=== PATIENT | male | born 1970 | race Hispanic/Latino ===

== ENCOUNTER 2023-06-17 12:48 | Inpatient (IN) | payer OTHER, SELFPAY ==
[2023-06-17] MEDS ORDERED: ONDANSETRON 4 MG/2 ML VIAL ONE (13:29)
[2023-06-17] MEDS ORDERED: MORPHINE 4 MG/ML SYR ONE (13:30)
[2023-06-17 13:41] LABS: Absolute Basophils 0.1 K/uL (0-0.5); Absolute Eosinophils 0.2 K/uL (0-0.5); Absolute Lymphocytes (CBC) 1.4 K/uL (0.7-4.9); Absolute Monocytes 0.6 K/uL (0.1-1.3); Absolute Neutrophil 4.6 K/uL (1.8-8.0); Basophils % 0.9 % (0-1.3); Eosinophils % 3.1 % (0-4.4); Hematocrit 24.7 % (39.6-49.0); Hemoglobin 8.1 g/dL (13.6-17.9); Lymphocytes % 20.7 % (15.3-44.8); MCH 29.4 pg (27.0-35.0); MCHC 32.6 g/dL (32.0-36.0); MCV 90.1 fL (80-100); MPV 8.5 fL (7.6-11.3); Monocytes % 8.8 % (3.3-12.3); Neutrophils % 66.5 % (41.7-73.7); Platelets 328 thou/uL (152-406); RBC Red Blood Cell Count 2.74 M/uL (4.33-5.43); Red Cell Distribution Width 13.5 % (12.1-15.2)
[2023-06-17 13:55] LABS: ALT/SGPT 14 U/L (16-61); AST/SGOT 8 U/L (15-37); Albumin 2.3 g/dL (3.4-5.0); Albumin/Globulin Ratio 0.6 (1.1-1.8); Alkaline Phosphatase 89 U/L (45-117); Anion Gap 8.7 mEq/L (5.0-15.0); BUN Blood Urea Nitrogen 34 mg/dL (7-18); Bicarbonate 23 mEq/L (21-32); Bilirubin Total 0.2 mg/dL (0.2-1.0); Globulin 3.7 g/dL (2.3-3.5); Glomerular Filtration Rate 41 ml/min (=/>90); Glucose Level 194 mg/dL (74-106); Potassium 4.7 mEq/L (3.5-5.1); Sodium Level 140 mEq/L (136-145)
[2023-06-17 13:57] LABS: Bilirubin Direct < 0.1 mg/dL (0-0.2); Bilirubin Indirect, Calculated ND mg/dL (0.2-0.8)
--- NOTE | 2023-06-17 14:39 | RAD REPORT ---
EXAM DESCRIPTION: US - Extremity Venous Uni Ltd - 06/17/2023 2:30 pm CLINICAL HISTORY: PAIN Leg swelling and edema. COMPARISON: No comparisons FINDINGS: Right lower extremity venous system was interrogated with Doppler technique. Normal flow, compressibility and augmentation was noted. There is no DVT present. IMPRESSION: No evidence of right lower extremity deep venous thrombosis.
--- NOTE | 2023-06-17 14:40 | RAD REPORT ---
EXAM DESCRIPTION: US - Scrotum Testicles - 06/17/2023 2:29 pm CLINICAL HISTORY: scrotal pain COMPARISON: No comparisons FINDINGS: The right testicle 5.1 x 3.3 x 2.1 cm. No intratesticular masses or evidence of testicular torsion. The left testicle 4.8 x 3.5 x 2.5 cm. No intratesticular masses or evidence of testicular torsion. Both epididymides are normal in size and appearance. No pathologic fluid collections. Mild scrotal wall thickening. IMPRESSION: No acute abnormality seen.
--- NOTE | 2023-06-17 15:04 | RAD REPORT ---
EXAM DESCRIPTION: CT - Abdomen Pelvis Wo Contrast - 06/17/2023 2:49 pm CLINICAL HISTORY: Abdominal pain. chills, indwelling catheter, groin pain COMPARISON: No comparisons TECHNIQUE: CT imaging of the abdomen and pelvis was performed without contrast. Solid organ, bowel a nd vascular assessment is limited due to lack of IV and oral contrast. All CT scans are performed using dose optimization technique as appropriate and may include automated exposure control or mA/KV adjustment according to patient size. FINDINGS: Small bilateral pleural effusions are noted. The liver, spleen, pancreas, adrenal glands and kidneys are within normal limits for a limited non-co ntrast examination. No bowel obstruction, free air, free fluid or abscess. The appendix is normal. There is a large amou nt of stool present throughout the colon. Fecal impaction in the rectum is possible. Sidhu catheter i s in place. Air is present in the urinary bladder with mild thickening. The osseous structures are within normal limits. IMPRESSION: Sidhu catheter in place with a within the urinary bladder. Suggest correlation with urin alysis evaluate for possible cystitis. Significant fecal retention throughout the colon with possible fecal impaction in the rectum. A limited non-contrast examination was performed as detailed.
[2023-06-17 15:40] LABS: Renal Epithelial <5 /HPF (None Seen); Specific Gravity 1.014 (1.005-1.030); Sqamous Epithelial None Seen /HPF (None Seen); Urine Bacteria None Seen /HPF (<20); Urine Bilirubin NEGATIVE (Negative); Urine Blood Trace (Negative); Urine Clarity Clear (Clear); Urine Color Colorless (Yellow); Urine Culture Reflex Order NOT NEEDED; Urine Glucose 1+ (Negative); Urine Ketones NEGATIVE (Negative); Urine Microscopic Reflex YN ORDER UMIC; Urine Mucus Slight /HPF (None Seen); Urine Nitrite NEGATIVE (Negative); Urine Protein 3+ (Negative); Urine RBC <5 /HPF (None Seen); Urine Urobilinogen Normal (Normal); Urine WBC <5 /HPF (<5)
[2023-06-17] MEDS ORDERED: FLEET ENEMA ADULT PR ONE (15:50)
--- NOTE | 2023-06-17 17:01 | EDPHYS ---
Physician Documentation [facility] Name: Abel Cabello Age: 52 yrs Sex: Male : 1970 Arrival Date: 06/17/2023 Time: 12:48 Bed 8 Private MD: ED Physician Toribio Garcia HPI: 06/16 13:50 This 52 yrs old Male presents to ER via EMS with complaints of Groin Pain. rn 13:50 The patient presents with pain. The complaints affect the pelvis and right leg. Onset: rn The symptoms/episode began/occurred yesterday. Modifying factors: The symptoms are alleviated by nothing. the symptoms are aggravated by nothing. Severity of symptoms: At their worst the symptoms were moderate, in the emergency department the symptoms are unchanged. The patient has not experienced similar symptoms in the past. Patient reports right groin pain that radiates down right leg to ankle. Denies injury. Had stroke last month and had Sidhu catheter placed 2 weeks ago, was supposed to follow-up with urology for evaluation of removal of the Sidhu catheter. States groin pain that radiates down right leg worse since yesterday. Did not have this pain earlier as this Sidhu catheter has been in place almost 2 weeks. Denies fall or trauma. No fever.. Historical: - Allergies: 12:56 No Known Allergies; aa5 - Home Meds: 13:37 Cipro 500 mg Oral tablet 2 times per day for UTI started 06/05/23 [Active]; aspirin 81 aa5 mg Oral tablet,chewable once [Active]; atorvastatin 80 mg oral tablet every day at bedtime [Active]; carvedilol 25 mg oral tablet 2 times per day [Active]; ferrous sulfate 325 mg (65 mg iron) Oral tablet once [Active]; Humulin 70/30 U-100 Insulin 100 unit/mL (70-30) Sub-Q suspension 25 units daily before breakfast and 15 units before dinner. [Active]; nifedipine 90 mg Oral tablet, extended release once [Active]; tamsulosin 0.4 mg oral capsule 2 caps daily [Active]; - PMHx: 12:56 JOSSELYN; alcohol abuse; Diabetes mellitus; Hypertensive disorder; CVA May 07, 2023; Left aa5 sided weakness from CVA; Hypoxic Respiratory Failure; Cystitis with hematuria; - Family history:: not pertinent. - Hospitalizations: : No recent hospitalization is reported. ROS: 13:50 Constitutional: Negative for fever, and weight loss, Cardiovascular: Negative for chest rn pain, palpitations, and edema, Respiratory: Negative for shortness of breath, cough, wheezing, and pleuritic chest pain, Abdomen/GI: Negative for abdominal pain, nausea, vomiting, diarrhea, and constipation, Back: Negative for injury and pain, : Positive for testicular and right groin pain MS/Extremity: Positive for right leg pain Exam: 13:50 Constitutional: This is a well developed, well nourished patient who is awake, alert, rn appears uncomfortable ENT: No oral swelling or stridor noted Cardiovascular: Regular rate and rhythm. No pulse deficits. Respiratory: No increased work of breathing, no retractions or nasal flaring. Abdomen/GI: Soft, non-tender Male : Sidhu catheter in place. Vaseline over scrotum that applied but no crepitus or skin changes. No evidence of Hawk's gangrene Skin: Warm, dry MS/ Extremity: Pulses equal, no cyanosis. No gross deformity of right lower extremity Neuro: Awake and alert, GCS 15 Vital Signs: 12:55 BP 133 / 87; Pulse 85; Resp 18 S; Temp 98.1(O); Pulse Ox 94% on R/A; Weight 104.33 kg aa5 (R); Height 5 ft. 10 in. (R); 13:30 BP 140 / 78; Pulse 84; Resp 18 S; Pulse Ox 96% on R/A; aa5 14:00 BP 137 / 81; Pulse 79; Resp 16 S; Pulse Ox 96% on R/A; aa5 14:25 Resp 6 S; Pulse Ox 50% on R/A; aa5 14:26 Resp 12 S; Pulse Ox 98% on Non-rebreather mask; aa5 14:30 BP 141 / 82; Pulse 79; Resp 19 S; Pulse Ox 98% on Non-rebreather mask; aa5 15:22 BP 151 / 86; Pulse 80; Resp 18 S; Pulse Ox 100% on 4 lpm NC; aa5 15:30 Pulse Ox 57% on 3 lpm NC; aa5 15:31 Pulse Ox 97% on 3 lpm NC; aa5 16:11 BP 147 / 90; Pulse 86; Resp 18 S; Pulse Ox 97% on 2 lpm NC; aa5 17:30 Pulse Ox 60% on 3 lpm NC; aa5 17:31 Pulse Ox 97% on 3 lpm NC; aa5 12:55 Body Mass Index 33.00 (104.33 kg, 177.8 cm) aa5 MDM: 12:56 Patient medically screened. rn 16:54 Differential diagnosis: Cystitis, DVT, radiculopathy. Data reviewed: vital signs, rn nurses notes, lab test result(s), radiologic studies, CT scan, and as a result, I will admit patient. Consideration of Admission/Observation Patient was admitted/placed on observation. Escalation of care including admission/observation considered. Counseling: I had a detailed discussion with the patient and/or guardian regarding the historical points, exam findings, and any diagnostic results supporting the discharge/admit diagnosis, lab results, radiology results, the need for further work-up and treatment in the hospital. Response to treatment: the patient's symptoms have mildly improved after treatment, and as a result, I will admit patient. ED course: Patient with fecal impaction, negative DVT study. Patient has exhibited several hypoxic and hypoventilatory episodes where he desats to 25%. Patient unaware of history of severe apnea or hypoventilatory episodes. Will hobs to hospitalist service for further evaluation and care.. 17:38 ED course: Patient had large bowel movement as a result of enema. Stable vital signs rn currently.. 06/16 13:15 Order name: Urinalysis w/ reflexes; Complete Time: 15:44 rn 06/16 13:16 Order name: CBC with Diff; Complete Time: 14:15 rn 06/16 13:16 Order name: Basic Metabolic Panel; Complete Time: 14:15 rn 06/16 13:16 Order name: LFT's; Complete Time: 14:15 rn 06/16 14:45 Order name: Glucose, Ancillary Testing; Complete Time: 15:25 EDMS 06/16 17:33 Order name: CBC with Automated Diff EDMS 06/16 17:33 Order name: CBC with Automated Diff EDMS 06/16 17:33 Order name: CBC with Automated Diff EDMS 06/16 17:33 Order name: CBC with Automated Diff EDMS 06/16 17:33 Order name: Comprehensive Metabolic Panel EDMS 06/16 17:33 Order name: Comprehensive Metabolic Panel [facility] 06/16 17:33 Order name: Comprehensive Metabolic Panel [facility] 06/16 17:33 Order name: Comprehensive Metabolic Panel [facility] 06/16 17:33 Order name: Lipid Profile [facility] 06/16 17:33 Order name: Lipid Profile [facility] 06/16 17:33 Order name: Magnesium [facility] 06/16 17:33 Order name: Magnesium [facility] 06/16 18:47 Order name: Ammonia; Complete Time: 19:01 [facility] 06/16 18:59 Order name: NT PRO-BNP [facility] 06/16 18:59 Order name: Thyroid Stimulating Hormone [facility] 06/16 19:10 Order name: Type and Screen [facility] 06/16 19:12 Order name: ABO/RH no charge [facility] 06/16 19:12 Order name: T4 Free [facility] 06/16 19:17 Order name: Transferrin Sat/Iron Binding [facility] 06/16 19:17 Order name: Ferritin [facility] 06/16 13:15 Order name: Extremity Venous Uni Ltd US; Complete Time: 15:25 rn 06/16 13:15 Order name: US Scrotum Testicles; Complete Time: 15:25 rn 06/16 14:10 Order name: Abdomen ; Complete Time: 15:25 [facility] 06/16 18:59 Order name: CT; Complete Time: 19: [facility] 06/16 19:00 Order name: US; Complete Time: 19: [facility] 06/16 13:16 Order name: IV Start; Complete Time: 13:29 rn Administered Medications: 13:30 Drug: Ondansetron IVP 4 mg IVP once; over 2 minutes Route: IVP; Site: right forearm; aa5 13:34 Follow up: Response: No adverse reaction aa5 13:34 Drug: morphine IVP or IV 4 mg IVP once over 4 mins Route: IVP; Infused Over: 4 mins; aa5 Site: right forearm; 13:40 Follow up: Response: No adverse reaction aa5 15:50 Drug: Fleet Enema RI 133 ml RI once; may repeat once Route: RI; aa5 17:40 Follow up: Response: Marked relief of symptoms aa5 Disposition Summary: 06/17/23 17:00 Hospitalization Ordered Notes: Hospitalization Status: Observation rn Provider: Ruth Elizabeth rn Condition: Stable rn Problem: new rn Symptoms: are unchanged rn Bed/Room Type: Standard rn Location: Intensive Care Unit(06/17/23 17:45) Room Assignment: 7-(06/17/23 18:59) aa5 Diagnosis - Fecal impaction rn - Hypoxemia rn - Hypoventilation rn Forms: - Medication Reconciliation Form rn - SBAR form rn - Leadership Thank You Letter rn Signatures: Dispatcher [employer] EDMS Toribio Garcia MD MD rn Calderon, Audri, RN RN aa5 Kalli Lambert Corrections: (The following items were deleted from the chart) 12:58 12:56 Allergies: Demerol; aa5 aa5 13:16 13:16 Urinalysis+U.LAB.BRZ ordered. EDMS EDMS 13:16 13:16 Extremity Venous Uni Ltd+US.RAD.BRZ ordered. EDMS EDMS 13:16 13:16 Scrotum Testicles+US.RAD.BRZ ordered. EDMS EDMS 13:42 13:37 Home Meds: insulin SQ; aa5 aa5 14:10 13:16 Abdomen Pelvis W Con+CT.RAD.BRZ ordered. EDSC EDMS 17:45 17:00 Telemetry/MedSurg (observation) rn eb 17:45 17:00 rn eb 17:47 13:50 Constitutional: This is a well developed, well nourished patient who is awake, rn alert, appears uncomfortable Cardiovascular: Regular rate and rhythm. No pulse deficits. Respiratory: No increased work of breathing, no retractions or nasal flaring. Abdomen/GI: Soft, non-tender Male : Sidhu catheter in place. Vaseline over scrotum that applied but no crepitus or skin changes. No evidence of Hawk's gangrene Skin: Warm, dry MS/ Extremity: Pulses equal, no cyanosis. No gross deformity of right lower extremity Neuro: Awake and alert, GCS 15 rn 18:59 17:45 1- eb aa5
--- NOTE | 2023-06-17 17:01 | ER ---
Nurse's Notes [facility] Name: Abel Cabello Age: 52 yrs Sex: Male : 1970 Arrival Date: 06/17/2023 Time: 12:48 Bed 8 Private MD: Diagnosis: Fecal impaction;Hypoxemia;Hypoventilation Presentation: 06/16 12:55 Chief complaint: Chief complaint: Chief complaint: Patient states: left leg pain aa5 radiating up to groin area. Released from [facility] 06/05/23 with Sidhu catheter. 12:55 Method Of Arrival: EMS: [facility] aa5 12:55 Coronavirus screen: At this time, the client does not indicate any symptoms associated aa5 with coronavirus-19. Ebola Screen: Patient denies travel to an Ebola-affected area in the 21 days before illness onset. Initial Sepsis Screen: Does the patient meet any 2 criteria? No. Patient's initial sepsis screen is negative. Does the patient have a suspected source of infection? No. Patient's initial sepsis screen is negative. Risk Assessment: Do you want to hurt yourself or someone else? Patient reports no desire to harm self or others. Onset of symptoms was May 2023. 12:55 Acuity: PHILIP 3 aa5 Historical: - Allergies: 12:56 No Known Allergies; aa5 - Home Meds: 13:37 Cipro 500 mg Oral tablet 2 times per day for UTI started 06/05/23 [Active]; aspirin 81 aa5 mg Oral tablet,chewable once [Active]; atorvastatin 80 mg oral tablet every day at bedtime [Active]; carvedilol 25 mg oral tablet 2 times per day [Active]; ferrous sulfate 325 mg (65 mg iron) Oral tablet once [Active]; Humulin 70/30 U-100 Insulin 100 unit/mL (70-30) Sub-Q suspension 25 units daily before breakfast and 15 units before dinner. [Active]; nifedipine 90 mg Oral tablet, extended release once [Active]; tamsulosin 0.4 mg oral capsule 2 caps daily [Active]; - PMHx: 12:56 JOSSELYN; alcohol abuse; Diabetes mellitus; Hypertensive disorder; CVA May 07, 2023; Left aa5 sided weakness from CVA; Hypoxic Respiratory Failure; Cystitis with hematuria; - Family history:: not pertinent. - Hospitalizations: : No recent hospitalization is reported. Screenin:00 [facility] ED Fall Risk Assessment (Adult) History of falling in the last 3 months, aa5 including since admission No falls in past 3 months (0 pts) Confusion or Disorientation No (0 pts) Intoxicated or Sedated No (0 pts) Impaired Gait Yes (1 pt) Mobility Assist Device Used Yes (1 pt) Altered Elimination Yes (1 pt) Score/Fall Risk Level 3 or more points = High Risk Oriented to surroundings, Maintained a safe environment, Educated pt \T\ family on fall prevention, incl call for assistance when getting out of bed. Abuse screen: Denies threats or abuse. Nutritional screening: No deficits noted. Tuberculosis screening: No symptoms or risk factors identified. Assessment: 12:55 General: Appears uncomfortable, Behavior is calm, cooperative. Pain: Complains of pain aa5 in right leg Pain radiates to groin Pain currently is 10 out of 10 on a pain scale. Quality of pain is described as sharp, shooting, Pain began this morning Is continuous. 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 Cardiovascular: Heart tones S1 S2 present Patient's skin is warm and dry. Edema is 2+ to noted to buck legs and feet Rhythm is regular. Respiratory: Airway is patent Respiratory effort is even, unlabored, Respiratory pattern is regular, symmetrical. GI: Abdomen is round Bowel sounds present X 4 quads. Abd is soft and non tender X 4 quads. Patient currently denies abdominal pain. : Sidhu in place to gravity drainage. EENT: No signs and/or symptoms were reported regarding the EENT system. Derm: Skin is pink, warm \T\ dry. multiple small scabbed sores noted to right mckeon. Musculoskeletal: left sided weakness noted, pt reports is deficit from CVA. 13:30 Reassessment: Patient is alert, oriented x 3, equal unlabored respirations, skin aa5 warm/dry/pink. General: Appears uncomfortable. Pain: Noted to be moaning. 13:40 Reassessment: Patient is alert, oriented x 3, equal unlabored respirations, skin aa5 warm/dry/pink. US at bedside. 14:00 Reassessment: Pt sleeping, relaxed respirations noted, skin is pink/warm/dry. Pt's aa5 at bedside. . 14:25 Reassessment: O2 sat noted to be 50% RA on monitor, checked on pt O2 sat at bedside aa5 down to 25% RA, hypoventilation noted, pt hard to arouse to verbal stimuli, placed O2 via non-rebreather, O2 sat up to 98% via non-rebreather and pt woke up to tactile stimuli, current RR is 20. Dr. Garcia at bedside. Pt awake and alert now. . 14:58 Reassessment: Patient is alert, oriented x 3, equal unlabored respirations, skin aa5 warm/dry/pink. Pt back from CT scan. . 15:31 Reassessment: O2 sat decreased, see VS for more information, MD was notified. Pt's O2 aa5 sat increased upon waking up. . 15:50 Reassessment: Patient is alert, oriented x 3, equal unlabored respirations, skin aa5 warm/dry/pink. Patient states feeling better. General: Appears comfortable. Pain: Pain currently is 3 out of 10 on a pain scale. 17:30 Reassessment: Os sat decreases when pt is asleep, MD was notified of another episode of aa5 hypoxia to 60% via 3 L NC, increased to O2 sat 97% via 3 L NC upon waking up. . 17:31 Reassessment: Patient is alert, oriented x 3, equal unlabored respirations, skin aa5 warm/dry/pink. 17:40 Reassessment: Moderate amount of formed stool noted, pt cleaned and new brief applied. aa5 MDwas notified. . 17:56 Reassessment: Patient is alert, oriented x 3, equal unlabored respirations, skin aa5 warm/dry/pink. 17:57 Reassessment: Attempted to call report to ICU nurse, DUSTY Rayo states he will call me aa5 back. . 18:40 Reassessment: Pt currently at radiology. . aa5 18:40 Reassessment: Report given to Girma ICU nurse, ICU room changed to ICU room 7 per jamie Rayo registration staff notified. . Vital Signs: 12:55 BP 133 / 87; Pulse 85; Resp 18 S; Temp 98.1(O); Pulse Ox 94% on R/A; Weight 104.33 kg aa5 (R); Height 5 ft. 10 in. (R); 13:30 BP 140 / 78; Pulse 84; Resp 18 S; Pulse Ox 96% on R/A; aa5 14:00 BP 137 / 81; Pulse 79; Resp 16 S; Pulse Ox 96% on R/A; aa5 14:25 Resp 6 S; Pulse Ox 50% on R/A; aa5 14:26 Resp 12 S; Pulse Ox 98% on Non-rebreather mask; aa5 14:30 BP 141 / 82; Pulse 79; Resp 19 S; Pulse Ox 98% on Non-rebreather mask; aa5 15:22 BP 151 / 86; Pulse 80; Resp 18 S; Pulse Ox 100% on 4 lpm NC; aa5 15:30 Pulse Ox 57% on 3 lpm NC; aa5 15:31 Pulse Ox 97% on 3 lpm NC; aa5 16:11 BP 147 / 90; Pulse 86; Resp 18 S; Pulse Ox 97% on 2 lpm NC; aa5 17:30 Pulse Ox 60% on 3 lpm NC; aa5 17:31 Pulse Ox 97% on 3 lpm NC; aa5 12:55 Body Mass Index 33.00 (104.33 kg, 177.8 cm) aa5 ED Course: 12:55 Patient arrived in ED. aa5 12:55 Arm band placed on Patient placed in an exam room, on a stretcher. aa5 12:55 Patient has correct armband on for positive identification. Placed in gown. Bed in low aa5 position. Call light in reach. Side rails up X2. Pulse ox on. NIBP on. 12:56 Toribio Garcia MD is Attending Physician. rn 13:00 Janet Lind, DUSTY is Primary Nurse. aa5 13:04 Triage completed. aa5 13:21 Initial lab(s) drawn, by me, sent to lab. Inserted saline lock: 20 gauge in right aa5 forearm, using aseptic technique. Blood collected. 14:31 US Scrotum Testicles In Process Unspecified. EDMS 14:32 Extremity Venous Uni Ltd US In Process Unspecified. EDMS 14:51 Abdomen In Process Unspecified. EDMS 16:59 Ruth Elizabeth MD is Hospitalizing Provider. rn Administered Medications: 13:30 Drug: Ondansetron IVP 4 mg IVP once; over 2 minutes Route: IVP; Site: right forearm; aa5 13:34 Follow up: Response: No adverse reaction aa5 13:34 Drug: morphine IVP or IV 4 mg IVP once over 4 mins Route: IVP; Infused Over: 4 mins; aa5 Site: right forearm; 13:40 Follow up: Response: No adverse reaction aa5 15:50 Drug: Fleet Enema CT [address] once; may repeat once Route: CT; aa5 17:40 Follow up: Response: Marked relief of symptoms aa5 Medication: 18:05 VIS not applicable for this client. aa5 Output: 14:30 Urine: 200ml (Sidhu); Total: 200ml. aa5 17:40 Urine: 300ml (Sidhu); Total: 500ml. aa5 Outcome: 17:00 Decision to Hospitalize by Provider. rn 19:26 Patient left the ED. jb4 Signatures: Dispatcher [employer] EDMS Toribio Garcia MD MD rn Calderon, Audri, RN RN aa5 Bryson, James, RN RN jb4 Corrections: (The following items were deleted from the chart) 12:58 12:56 Allergies: Demerol; aa5 aa5 13:01 12:55 Chief complaint: aa5 aa5 13:04 12:55 Chief complaint: Chief complaint: aa5 aa5 13:06 12:55 Chief complaint: Patient states: left leg pain radiating up to groin area. Chief aa5 complaint: Patient states: left leg pain radiating up to groin area. Chief complaint: Patient states: left leg pain radiating up to groin area. aa5 13:42 13:37 Home Meds: insulin SQ; aa5 aa5 14:43 14:25 Pulse Ox 50% RA; aa5 aa5 14:43 14:26 Pulse Ox 98% Non-rebreather mask; aa5 aa5 18:05 12:55 Cardiovascular: Patient's skin is warm and dry. aa5 aa5 18:16 12:55 Derm: Skin is pink, warm \T\ dry. aa5 aa5
[2023-06-17] MEDS: LACTULOSE 20 GM/30 ML UCUP PO ONE (17:40)
--- NOTE | 2023-06-17 18:03 | P.HP ---
Certification for Inpatient Patient admitted to: Inpatient With expected LOS: >2 Midnights Patient will require the following post-hospital care: Correction Practitioner: I am a practitioner with admitting privileges, knowledge of patient current condition, hospital course, and medical plan of care. Services: Services provided to patient in accordance with Admission requirements found in Title 42 Section 412.3 of the Code of Federal Regulations Patient History Date of Service: 06/17/23 Primary Care Provider: here from [place] Reason for admission: CHF, recent CVA (left weakness), HTN, Groin pain, UTI History of Present Illness: Mr. Cabello is a 52-year-old male with a past medical history of alcohol abuse, diabetes, hypertension with CKD, hyperlipidemia, hypoxic respiratory failure, and cystitis, who sustained a right CVA on May 07, 2023. His states that they came to [place] from [place] to visit family in [place]. During their stay Mr. Cabello had a CVA and was evaluated and treated at [facility]. Although poor historian, the states that "they said he was going to have another stroke but they gave him some medicine to stop it." She cannot say if she has heard TNK or clot Buster or any other kind of medication. She just knows they gave him something to stop the stroke. - Past Medical/Surgical History Has patient received pneumonia vaccine in the past: No Diabetic: Yes -: HTN -: DM -: CVA (May 06, 2022) -: ETOH abuse -: Left eye injury -: JOSSELYN -: Hypoxic respiratory failure -: cystitis with indwelling white -: left toe amputation -: left eye injury Psychosocial/ Personal History: Lives in [place] with his . They were here visiting family in [place] last month when Mr. Cabello had a CVA. He went to [facility]. His states, "now we are stuck here" - Social History Smoking Status: Unknown if ever smoked Alcohol use: Yes CD- Drugs: No Caffeine use: Yes Place of Residence: Home (with in [place]) Review of Systems 10-point ROS is otherwise unremarkable General: Weakness, Malaise, As per HPI Respiratory: As per HPI Cardiovascular: As per HPI Genitourinary: Other (White in place, Pt c/o pain in right testicle), As per HPI Musculoskeletal: Pedal edema Neurological: As per HPI Physical Examination - Physical Exam General: Mild distress, Moderate distress, Obese, Other (growling with right testicular pain, states back of tongue feels swollen) HEENT: Atraumatic, Normocephalic Neck: Supple Respiratory: Diminished, Other (hypoventilation) Cardiovascular: Regular rate/rhythm, Edema Capillary refill: >2 Seconds Gastrointestinal: Hypoactive, No tenderness, Other (tender only to right testicular area) Musculoskeletal: Other (left great toe amputation) Integumentary: Other (right lower leg with areas of scabbing, left sided weakness) Neurological: Other (some effort against gravity to left lower extremity, left upper arm held in flexed position), Abnormal speech, Abnormal strength, Abnormal sensation Lymphatics: No axilla or inguinal lymphadenopathy Urinary: White catheter External genitalia: Tenderness, Other (US of testicles in ED normal, pt states post BM post enema the pain is severe) Rectal: Other (large soft BM post enema per ED nurse) - Studies Laboratory Data (last 24 hrs) 06/17/23 06/17/23 13:21 13:21 WBC 7.00 Hgb 8.1 L Hct 24.7 L Plt Count 328 Sodium 140 Potassium 4.7 BUN 34 H Creatinine 1.93 H Glucose 194 H Total Bilirubin 0.2 AST 8 L ALT 14 L Alkaline Phosphatase 89 Assessment and Plan - Plan Recurrent CVA with respiratory center involvement CT head while in ED. MRI of the brain (Monday) carotid Doppler ECHO (Monday) ASA EC 162mg po daily Atorvastatin 80mg po q HS Neurology consultation - Dr. Dai Physical therapy/Occupational Therapy/speech therapy evaluation Neurochecks every 2 hours, NIH stroke scale every shift HTN with CKD Carvedilol 25mg po BID monitor and trend vs trend and replete electrolytes avoid NSAIDS, nephrotoxic substances HLD Atorvastatin 80mg po q hs CHF with anemia 1 unit PRBC with lasix 10mg IV post unit, H/H timed post blood transfusion per protocol Lasix 20mg IV daily to begin in AM IDDM FSBS q 6h with SSI coverage Cystitis with indwelling white Continue renal dosed Cipro Tamsulosin 0.8mg po daily Maintain White Testicular pain (right) (US negative for torsion, epididymitis, or other abnormality) Consult Dr. Lester Pain control ETOH abuse Ammonia Librium 25mg po q8h prn (careful as pt is already hypoventilating) Constipation pt given fleets in ED and had large formed BM post CT findings Lactulose DVT/GI prophylaxis protonix scds - Advance Directives Does patient have a Living Will: No Does patient have a Durable POA for Healthcare: No Physician Review Additional Text: Report and discussion with Dr. Viera at shift change. Pt remains in ED, has room assignment to ICU1
[2023-06-17] MEDS: ASPIRIN 81 MG CHEWABLE TABLET PO ONE (18:15)
[2023-06-17] MEDS ORDERED: SODIUM CHLORIDE 0.9% 10ML INJ IV PRN (18:57)
[2023-06-17 18:59] LABS: Thyroid Stimulating Hormone 5.18 uIU/mL (0.358-3.740)
--- NOTE | 2023-06-17 18:59 | RAD REPORT ---
EXAM DESCRIPTION: CT - Head Brain Wo Cont - 06/17/2023 6:52 pm CLINICAL HISTORY: hypoventilation/apneic spells Headache, drowsiness COMPARISON: No comparisons TECHNIQUE: All CT scans are performed using dose optimization technique as appropriate and may inclu de automated exposure control or mA/KV adjustment according to patient size. FINDINGS: No intracranial hemorrhage, hydrocephalus or extra-axial fluid collection.Mild generalized brain atrophy is present with mild periventricular and deep white matter chronic microvascular ische rangel changes.No areas of brain edema or evidence of midline shift. The paranasal sinuses and mastoids are clear. The calvarium is intact. IMPRESSION: No acute intracranial abnormality.
--- NOTE | 2023-06-17 18:59 | RAD REPORT ---
EXAM DESCRIPTION: - - 06/17/2023 6:50 pm CLINICAL HISTORY: apneic spells Headache, drowsiness COMPARISON: No comparisons TECHNIQUE: Real-time sonographic evaluation of both carotid systems was performed. Doppler interroga tion was performed with waveform tracing bilaterally. FINDINGS: Normal high resistance waveforms are noted in both external carotid arteries. The common c arotid arteries and internal carotid arteries show normal low resistance waveforms. Mild soft plaque proximal right internal carotid artery. Minimal hard plaque left carotid bulb. Peak systolic and end diastolic velocity values and the ICA/CCA ratios are in the non-hemodynamically sign ificant range. Antegrade flow seen in both vertebral arteries. IMPRESSION: Mild bilateral carotid bulb plaquing. No evidence of a hemodynamically significant stenosis.
[2023-06-17] MEDS ORDERED: FUROSEMIDE 20 MG/ 2ML VIAL IV SCH (19:00)
[2023-06-17 19:17] LABS: Ferritin 86.6 ng/mL (26-388)
[2023-06-17] MEDS: INSULIN REGULAR (HUMAN) 100 UNIT/ML SQ SCH (21:00)
[2023-06-17] MEDS: NA CHLORIDE 0.9% 250 ML ONE (21:39)
--- NOTE | 2023-06-17 22:31 | P.PN ---
Date of Service: 06/17/23 Patient reevaluated, patient with history of recent CVA manage at [facility], with left hemiparesis presented today because of complaint of pain on the right side. States pain is more from the right mid wrist to the right lower leg states symptoms started after he had Sidhu placed for CVA. Pain is nonspecific. Also admit to constipation. Presented to the hospital for pain and was given morphine and then developed hypoventilation episodes with desaturation with the morphine. Morphine has been off now he is alert and awake and no repeated episode of desaturation noted. Received receiving PRBC 1 unit. Clinical exam is still mildly fluid overloaded with crackles on bases as well as 1+ pitting edema, will give Lasix now as well as mild I 40 mg after the PRBC. Give Dulcolax as well as MiraLAX for constipation Patient might benefit from Neurontin or Lyrica for presumed thalamic right-sided pain Can we DC from ICU status and moved to regular floor after the PRBC Can discharge home in a.m. and to continue follow-up with neurology at [facility]. Patient and family at bedside discussed
[2023-06-17] MEDS: BISACODYL E.C. 5 MG TAB PO ONE (22:54)
[2023-06-17] MEDS: FUROSEMIDE 40 MG/4 ML VIAL IV ONE (22:54)
[2023-06-17] MEDS: PANTOPRAZOLE 40 MG INJ IVP SCH (22:55)
[2023-06-17] MEDS: TAMSULOSIN 0.4 MG SR CAP PO SCH (22:55)
[2023-06-17] MEDS: ATORVASTATIN 80 MG TAB PO SCH (22:55)
[2023-06-17] MEDS: Ciprofloxacin 200mg IV 200 MG/100 ML IV.SOLN. IV SCH (23:47)
[2023-06-18] MEDS: HEPARIN 5000 UNIT/ML 1 ML VIAL SQ SCH (01:59)
[2023-06-18 04:31] LABS: Absolute Basophils 0.1 K/uL (0-0.5); Absolute Eosinophils 0.2 K/uL (0-0.5); Absolute Lymphocytes (CBC) 1.3 K/uL (0.7-4.9); Absolute Monocytes 0.6 K/uL (0.1-1.3); Absolute Neutrophil 4.3 K/uL (1.8-8.0); Basophils % 1.3 % (0-1.3); Eosinophils % 3.6 % (0-4.4); Hematocrit 26.1 % (39.6-49.0); Hemoglobin 8.9 g/dL (13.6-17.9); Lymphocytes % 20.3 % (15.3-44.8); MCH 30.8 pg (27.0-35.0); MCHC 34.2 g/dL (32.0-36.0); MCV 90.2 fL (80-100); MPV 7.8 fL (7.6-11.3); Monocytes % 9.3 % (3.3-12.3); Neutrophils % 65.5 % (41.7-73.7); Platelets 310 thou/uL (152-406); RBC Red Blood Cell Count 2.89 M/uL (4.33-5.43); Red Cell Distribution Width 13.5 % (12.1-15.2)
[2023-06-18 04:50] LABS: Albumin 2.2 g/dL (3.4-5.0); Albumin/Globulin Ratio 0.6 (1.1-1.8); Anion Gap 6.6 mEq/L (5.0-15.0); Bilirubin Total 0.2 mg/dL (0.2-1.0); Globulin 3.9 g/dL (2.3-3.5); Potassium 4.6 mEq/L (3.5-5.1); Protein, Total 6.1 g/dL (6.4-8.2)
[2023-06-18] MEDS: GABAPENTIN 100 MG CAP PO SCH (08:46)
[2023-06-18] MEDS: FOLIC ACID 1 MG in NA CHLORIDE 0.9% 50 ML IV SCH (08:46)
[2023-06-18] MEDS: FUROSEMIDE 20 MG/ 2ML VIAL IV SCH (08:46)
--- NOTE | 2023-06-18 10:37 | P.PN ---
Subjective Date of Service: 06/18/23 Primary Care Provider: here from [place] Chief Complaint: CHF, recent CVA (left weakness), HTN, Groin pain, UTI Pt is resting comfortably in bed. He complains of right sided pain and pt also has left sided residual weakness fro recent stroke that was treated at [facility]. His reports that the right sided pain started after he got an unknown medicine (likely tPA) to prevent stroke. He was admitted in the ICU due to hypoxia s/p getting morphine in the ER. Hypoxia has resolved. No other complaints. Review of Systems General: Unremarkable Eyes: Unremarkable ENT: Unremarkable Respiratory: SOB with Excertion Cardiovascular: Unremarkable Gastrointestinal: Unremarkable Genitourinary: Unremarkable Musculoskeletal: Unremarkable Integumentary: Unremarkable Neurological: Weakness Lymphatics: Unremarkable Physical Examination - Vital Signs Temperature: 98.3 F Blood Pressure: 163/76 Pulse: 89 Respirations: 16 Pulse Ox (%): 99 - Physical Exam General: Alert, In no apparent distress, Oriented x3 HEENT: Atraumatic, Normocephalic, PERRLA Neck: Supple, 2+ carotid pulse no bruit Respiratory: Clear to auscultation bilaterally, Normal air movement Cardiovascular: No edema, Normal pulses, Regular rate/rhythm, Normal S1 S2 Capillary refill: <2 Seconds Gastrointestinal: Normal bowel sounds, Soft and benign, Non-distended Musculoskeletal: No clubbing, No swelling Integumentary: No rashes, No breakdown Neurological: Other (Pt has right sided pain and left sided weakness), Abnormal strength Lymphatics: No axilla or inguinal lymphadenopathy - Studies Laboratory Data (last 24 hrs) 06/17/23 06/17/23 13:21 13:21 WBC 7.00 Hgb 8.1 L Hct 24.7 L Plt Count 328 Sodium 140 Potassium 4.7 BUN 34 H Creatinine 1.93 H Glucose 194 H Total Bilirubin 0.2 AST 8 L ALT 14 L Alkaline Phosphatase 89 Assessment And Plan - Plan Recent CVA: Pt was recently treated for left sided weakness at [facility]. He complains of right sided ain. CT head is unremarkable. Willf /u MRI brain. F/u Echo. Continue aspirin and atorvastatin. Consulted Neurology. Continue PT/OT. Right sided pain: will give gabapentin Acute resp failure with hypoxia: resolved. This happened after pt received morphine in the ER. Will avoid morphine. Continue 2L BNC and prn duoneb. HTN: continue coreg Hx of CKD: Will avoid nephrotoxins andm onitor renal function. cr is 1.9 HLD: Atorvastatin 80mg po q hs Anemia: Hgb is 8.9 s/p 1 unit o blood. Pt also received lasix in order to avoid volume overload. Hx of CHF: Continue lasix 20mg IV daily, strict I/O and daily weight IDDM: Continue accuchek, SSI and ADA diet. Cystitis with indwelling white: Will continue cipro and flomax. Leave white in place. Testicular pain (right) (US negative for torsion, epididymitis, or other abnormality): Will continue prn painmed. Consulted Dr. Lester ETOH abuse: Will continue CIWA protocol. Ammonia level is 34. Constipation: Pt had large BM s/p fleet enema. Will continue miralax. Lactulose GI Ppx: protonix DVT ppx: SCD Code: full
--- NOTE | 2023-06-18 12:08 | P.CNS ---
Primary Care Provider: here from [place] Chief Complaint: CHF, recent CVA (left weakness), HTN, Groin pain, UTI History of Present Illness: Patient with PMH of recent CVA presented with lower extremity weakness, pain, found to have bilateral lower extremities swelling and SOB. denies any chest pain, no palpitations, no syncope. Allergies No Known Allergies Allergy (Unverified 06/17/23 19:52) Home Medications: Aspirin Chewable [Aspirin Chewable*] 81 mg PO DAILY 06/18/23 Atorvastatin Calcium [Lipitor] 80 mg PO BEDTIME 06/18/23 Carvedilol [Coreg] 25 mg PO DAILY 06/18/23 Ciprofloxacin HCl [Cipro 500 MG Tablet] 500 mg PO DAILY 06/18/23 Ferrous Sulfate 325 mg PO DAILY 06/18/23 Hum Insulin NPH/Reg Insulin Hm [Humulin 70-30 Vial] 15 unit SQ DAILY AT SUPPER 06/18/23 Hum Insulin NPH/Reg Insulin Hm [Humulin 70-30 Vial] 25 units SQ BREAKFAST 06/17 NIFEdipine [Nifedipine ER] 90 mg PO DAILY 06/18/23 Tamsulosin [Flomax*] 0.8 mg PO DAILY WITH BREAKFAST 06/18/23 - Past Medical/Surgical History Diabetic: Yes -: HTN -: DM -: CVA (May 06, 2022) -: ETOH abuse -: Left eye injury -: JOSSELYN -: Hypoxic respiratory failure -: cystitis with indwelling white -: left toe amputation -: left eye injury Psychosocial/ Personal History: Lives in [place] with his . They were here visiting family in [place] last month when Mr. Cabello had a CVA. He went to [facility]. His states, "now we are stuck here" - Social History Alcohol use: Yes CD- Drugs: No Caffeine use: No Place of Residence: Home Review of Systems 10-point ROS is otherwise unremarkable Physical Examination Temp Pulse Resp BP Pulse Ox 98.3 F 89 16 163/76 H 99 06/18/23 10:54 06/18/23 10:54 06/18/23 10:54 06/18/23 10:54 06/18/23 10:54 General: Alert HEENT: Atraumatic Neck: Supple Respiratory: Clear to auscultation bilaterally Cardiovascular: Normal S1 S2, Edema Gastrointestinal: Normal bowel sounds Laboratory Data (last 24 hrs) 06/17/23 06/17/23 13:21 13:21 WBC 7.00 Hgb 8.1 L Hct 24.7 L Plt Count 328 Sodium 140 Potassium 4.7 BUN 34 H Creatinine 1.93 H Glucose 194 H Total Bilirubin 0.2 AST 8 L ALT 14 L Alkaline Phosphatase 89 - Problems (1) Bilateral lower extremity edema Current Visit: Yes Status: Acute Plan: increase lasix to 40 mg IV BID monitor input and output correct electrolytes echo (2) HTN (hypertension) Current Visit: Yes Status: Acute Plan: start coreg 25 mg po BID continue to monitor.
[2023-06-18] MEDS: carvediloL 25 MG TAB PO SCH (12:41)
[2023-06-18] MEDS: LABETALOL 20 MG/4ML SYRINGE IV PRN (15:26)
[2023-06-18] MEDS: FUROSEMIDE 40 MG/4 ML VIAL IV SCH (16:45)
[2023-06-18] MEDS: HYDRALAZINE HCL 20 MG/ML VIAL IV ONE (18:25)
[2023-06-19] MEDS: LABETALOL HCL 100 MG TAB PO ONE (00:30)
[2023-06-19] MEDS: HYDRALAZINE HCL 25 MG TABLET PO SCH (00:32)
[2023-06-19] MEDS: HYDRALAZINE HCL 20 MG/ML VIAL IV ONE (00:32)
[2023-06-19] MEDS: LABETALOL HCL 100 MG TAB PO SCH (02:11)
[2023-06-19 06:32] LABS: Absolute Basophils 0.1 K/uL (0-0.5); Absolute Eosinophils 0.2 K/uL (0-0.5); Absolute Lymphocytes (CBC) 1.7 K/uL (0.7-4.9); Absolute Monocytes 0.7 K/uL (0.1-1.3); Absolute Neutrophil 4.3 K/uL (1.8-8.0); Basophils % 0.8 % (0-1.3); Eosinophils % 2.9 % (0-4.4); Hematocrit 27.5 % (39.6-49.0); Lymphocytes % 24.5 % (15.3-44.8); MCH 29.6 pg (27.0-35.0); MCHC 32.8 g/dL (32.0-36.0); MCV 90.2 fL (80-100); MPV 8.3 fL (7.6-11.3); Monocytes % 9.5 % (3.3-12.3); Neutrophils % 62.3 % (41.7-73.7); Platelets 320 thou/uL (152-406); RBC Red Blood Cell Count 3.05 M/uL (4.33-5.43); Red Cell Distribution Width 13.5 % (12.1-15.2)
[2023-06-19 06:43] LABS: Albumin 2.1 g/dL (3.4-5.0); Albumin/Globulin Ratio 0.6 (1.1-1.8); Anion Gap 7.3 mEq/L (5.0-15.0); Bilirubin Total 0.4 mg/dL (0.2-1.0); Globulin 3.7 g/dL (2.3-3.5); Potassium 4.3 mEq/L (3.5-5.1); Protein, Total 5.8 g/dL (6.4-8.2)
[2023-06-19] MEDS ORDERED: LABETALOL HCL 100 MG TAB PO SCH (09:00)
[2023-06-19] MEDS: SOD FERRIC GLUC COMPLX/SUCROSE 125 MG in NA CHLORIDE 0.9% 100 ML IV SCH (10:21)
--- NOTE | 2023-06-19 11:39 | RAD REPORT ---
EXAM DESCRIPTION: RAD - Barium Swallow Modified - 06/19/2023 11:29 am CLINICAL HISTORY: CVA WITH HYPOVENTILATION COMPARISON: Abdomen Pelvis Wo Contrast dated 06/17/2023 TECHNIQUE: The patient was given liquid, semi-solid and solid forms of barium. Lateral view fluorosc opic imaging was performed in conjunction with speech pathology service. FINDINGS: Pharyngeal residue: Vallecular, pyriform-mild clears with 2nd swallow Other : premature spillage of bolus to pharynx before swallow due to delay in onset of swallow Total fluoroscopy time: 2 minutes and 33 seconds
--- NOTE | 2023-06-19 11:44 | RAD REPORT ---
EXAM DESCRIPTION: CT - Spine Lumbar Wo Con - 06/19/2023 11:28 am CLINICAL HISTORY: Radiculopathy. sacral ulcer with LBP/abscess COMPARISON: No comparisons TECHNIQUE: Axial noncontrast CT imaging of the lumbar spine was performed with coronal and sagittal re-formatted images. All CT scans are performed using dose optimization technique as appropriate and may include automated exposure control or mA/KV adjustment according to patient size. FINDINGS: No acute lumbar spine fracture seen. No aggressive marrow pattern or malalignment. Paraspinal tissues are normal in thickness. No paraspinal abscess or hematoma seen. Posterior disc bulges are suspected lower lumbar levels although assessment is limited on CT. Air is present in the urinary bladder with thickened wall with Sidhu catheter in place. Moderate stoo l is retained in the rectum with mild presacral soft tissue thickening. IMPRESSION: No acute lumbar spine abnormality is seen. Lower lumbar level disc bulging is likely pre sent. This is not fully evaluated on CT imaging. Consider MRI follow-up for assessment of disc disease if clinically desired.
[2023-06-19] MEDS: HYDROCODONE/APAP 10/325 TAB PO PRN (14:36)
[2023-06-19] MEDS: dexAMETHasone 4 MG/ML VIAL IV ONE (14:36)
[2023-06-20 05:21] LABS: Absolute Lymphocytes (CBC) 1.1 K/uL (0.7-4.9); Absolute Monocytes 0.6 K/uL (0.1-1.3); Absolute Neutrophil 4.2 K/uL (1.8-8.0); Basophils % 0.8 % (0-1.3); Eosinophils % 0.1 % (0-4.4); Hematocrit 27.3 % (39.6-49.0); Hemoglobin 9.4 g/dL (13.6-17.9); Lymphocytes % 18.7 % (15.3-44.8); MCH 30.5 pg (27.0-35.0); MCHC 34.5 g/dL (32.0-36.0); MCV 88.5 fL (80-100); MPV 8.2 fL (7.6-11.3); Monocytes % 9.8 % (3.3-12.3); Neutrophils % 70.6 % (41.7-73.7); Platelets 307 thou/uL (152-406); RBC Red Blood Cell Count 3.08 M/uL (4.33-5.43); Red Cell Distribution Width 13.2 % (12.1-15.2)
[2023-06-20 05:29] LABS: Albumin 2.3 g/dL (3.4-5.0); Albumin/Globulin Ratio 0.6 (1.1-1.8); Anion Gap 6.4 mEq/L (5.0-15.0); Bilirubin Total 0.3 mg/dL (0.2-1.0); Phosphorus 4.2 mg/dL (2.5-4.9); Potassium 4.4 mEq/L (3.5-5.1); Protein, Total 6.3 g/dL (6.4-8.2)
[2023-06-20 07:01] VITALS: BMI 29.6
--- NOTE | 2023-06-20 07:29 | ECHO ---
HEIGHT: 5 ft 10 in WEIGHT: 206 lb 11.2 oz DATE OF STUDY: 06/19/[address]: Ruth Elizabeth MD 2-DIMENSIONAL: YES M.MODE: YES DOPPLER: YES COLOR FLOW: YES TDS: PORTABLE: YES DEFINITY: BUBBLE STUDY: DIAGNOSIS: CHECK EJECTION FRACTION CARDIAC HISTORY: CATHERIZATION: NO SURGERY: NO PROSTHETIC VALVE: NO PACEMAKER: YES MEASUREMENTS (cm) DIASTOLIC (NORMALS) SYSTOLIC (NORMALS) IVSd 1.2 (0.6-1.2) LA Diam 3.5 (1.9-4.0) LVEF 62% LVIDd 5.5 (3.5-5.7) LVIDs 3.7 (2.0-3.5) %FS 34% LVPWd 1.2 (0.6-1.2) Ao Diam 3.5 (2.0-3.7) 2 DIMENSIONAL ASSESSMENT: RIGHT ATRIUM: NORMAL LEFT ATRIUM: NORMAL RIGHT VENTRICLE: NORMAL LEFT VENTRICLE: MILD LEFT VENTRICULAR HYPERTROPHY TRICUSPID VALVE: TRACE TRICUSPID REGURGITATION MITRAL VALVE: NORMAL PULMONIC VALVE: NORMAL AORTIC VALVE: NORMAL PERICARDIAL EFFUSION: NONE AORTIC ROOT: NORMAL LEFT VENTRICULAR WALL MOTION: NORMAL DOPPLER/COLOR FLOW: NORMAL COMMENTS: 1. NORMAL LEFT VENTRICULAR SYSTOLIC FUNCTION, EJECTION FRACTION 60-65%, NORMAL WALL MOTION 2. NORMAL DIASTOLIC FUNCTION 3. ELEVATED RIGHT ATRIAL PRESSURE GREATER THAN 20 mmHg TECHNOLOGIST: JEROME CLARKE
[2023-06-20] MEDS: FOLIC ACID 1 MG TABLET PO SCH (08:36)
--- NOTE | 2023-06-20 11:58 | P.PN ---
Subjective Date of Service: 06/20/23 Primary Care Provider: here from [place] Chief Complaint: CHF, recent CVA (left weakness), HTN, Groin pain, UTI Subjective: No new changes Review of Systems 10-point ROS is otherwise unremarkable Physical Examination - Vital Signs Temperature: 98.6 F Blood Pressure: 181/85 Pulse: 86 Respirations: 20 Pulse Ox (%): 98 - Physical Exam General: Alert HEENT: Atraumatic Neck: Supple Respiratory: Clear to auscultation bilaterally Cardiovascular: Normal S1 S2, Edema Gastrointestinal: Normal bowel sounds Assessment And Plan - Current Problems (Diagnosis) (1) Bilateral lower extremity edema Current Visit: Yes Status: Acute Plan: Continue lasix 40 mg IV BID monitor input and output correct electrolytes echo (2) HTN (hypertension) Current Visit: Yes Status: Acute Plan: continue coreg 25 mg po BID continue to monitor. (3) HLD (hyperlipidemia) Current Visit: Yes Status: Acute Plan: Continue Lipitor 80 mg daily
--- NOTE | 2023-06-20 12:09 | RAD REPORT ---
EXAM DESCRIPTION: MRI - Brain Wo Cont - 06/20/2023 11:45 am CLINICAL HISTORY: CVA/left-sided weakness COMPARISON: June 17, [address] TECHNIQUE: Axial, sagittal, and coronal magnetic resonance images of the brain were obtained. FINDINGS: 12 millimeter abnormal signal right basal ganglia has the appearance of a subacute infarct ion. Two smaller areas of abnormal signal have the appearance of acute infarcts within the right periventr icular white matter and right deep white matter Gradient echo sequences demonstrate an area of low signal within the left thalamus which likely is th e sequela of an old bleed. The ventricles are normal caliber. An extra-axial fluid collection is not noted. Fluid within the sinuses/mastoids is not seen IMPRESSION: 12 millimeter subacute infarction right basal ganglia. Two small areas of abnormal signal right periventricular white matter and right deep matter compatibl e with small acute infarct
[2023-06-20] MEDS: POLYETHYL GLY 3350 17 GM/DOSE PO PRN (21:24)
[2023-06-21 04:43] LABS: Albumin 2.3 g/dL (3.4-5.0); Anion Gap 5.8 mEq/L (5.0-15.0); Magnesium 1.7 mg/dL (1.6-2.4); Phosphorus 4.2 mg/dL (2.5-4.9); Potassium 3.8 mEq/L (3.5-5.1)
[2023-06-21] MEDS: MAGNESIUM SULFATE 1 gm IVPB 1 GM/100 ML BAG IV ONE (06:42)
[2023-06-21] MEDS: POTASSIUM CL SA 10 MEQ TAB PO ONE (08:11)
--- NOTE | 2023-06-21 08:31 | P.PN ---
Subjective Date of Service: 06/22/23 Primary Care Provider: here from [place] Chief Complaint: CHF, recent CVA (left weakness), HTN, Groin pain, UTI Pt is resting comfortably in bed. He complains of right sided pain and pt also has left sided residual weakness fro recent stroke that was treated at [facility]. His reports that the right sided pain started after he got an unknown medicine (likely tPA) to prevent stroke. He was admitted in the ICU due to hypoxia s/p getting morphine in the ER. Hypoxia has resolved. No other complaints. Evaluated by PT OT and speech, Cardiology following - Physical Exam General: Alert, In no apparent distress, Oriented x3 HEENT: Atraumatic, Normocephalic, PERRLA Neck: Supple, 2+ carotid pulse no bruit Respiratory: Clear to auscultation bilaterally, Normal air movement Cardiovascular: No edema, Normal pulses, Regular rate/rhythm, Normal S1 S2 Capillary refill: <2 Seconds Gastrointestinal: Normal bowel sounds, Soft and benign, Non-distended Musculoskeletal: No clubbing, No swelling Integumentary: No rashes, No breakdown Neurological: Other (Pt has right sided pain and left sided weakness), Abnormal strength Lymphatics: No axilla or inguinal lymphadenopathy Review of Systems Per HPI Physical Examination - Vital Signs Temperature: 97.9 F Blood Pressure: 185/86 Pulse: 89 Respirations: 20 Pulse Ox (%): 97 Assessment And Plan - Plan Assessment And Plan CVA left-sided weakness Pt was recently treated for left sided weakness at [facility]. He complains of right sided ain. CT head is unremarkable. Willf /u MRI brain. F/u Echo. Continue aspirin and atorvastatin. Consulted Neurology. Continue PT/OT. Modified barium swallow study-Recommend Soft and Bite Sized diet and thin liquids with general safe swallow precautions including up to 90 degrees for all oral intake Brain MRI Two small areas of abnormal signal right periventricular white matter and right deep matter compatible with small acute infarct, : 12 millimeter subacute infarction right basal ganglia. CT of the lumbar spine IMPRESSION: No acute lumbar spine abnormality is seen. Lower lumbar level disc bulging is likely present. This is not fully evaluated on CT imaging.FINDINGS: No acute lumbar spine fracture seen. No aggressive marrow pattern or malalignment.Paraspinal tissues are normal in thickness. No paraspinal abscess or hematoma seen. Posterior disc bulges are suspected lower lumbar levels although assessment is limited on CT. Air is present in the urinary bladder with thickened wall with Hwite catheter in place. Moderate stool is retained in the rectum with mild presacral soft tissue thickening. Right sided pain: will give gabapentin Acute resp failure with hypoxia: resolved. This happened after pt received morphine in the ER. Will avoid morphine. Continue 2L BNC and prn duoneb. HTN: continue coreg Telemetry, cardiology consulted for CHF Echocardiogram 1. NORMAL LEFT VENTRICULAR SYSTOLIC FUNCTION, EJECTION FRACTION 60-65%, NORMAL WALL MOTION 2. NORMAL DIASTOLIC FUNCTION 3. ELEVATED RIGHT ATRIAL PRESSURE GREATER THAN 20 mmHg Hx of CKD: Unknown stage Will avoid nephrotoxins andm onitor renal function. cr is 1.9 HLD: Atorvastatin 80mg po q hs Microcytic anemia from chronic disease Hgb is 8.9 s/p 1 unit o blood. Pt also received lasix in order to avoid volume overload. Hx of CHF: Continue lasix 20mg IV daily, strict I/O and daily weight IDDM: Uncontrolled with hyperglycemia Continue accuchek, SSI and ADA diet. Consult acute cystitis Chronic indwelling white Acute kidney injury history of chronic kidney disease unknown baseline Will continue cipro and flomax. Leave white in place. Testicular pain (right) (US negative for torsion, epididymitis, or other abnormality): Will continue prn painmed. Consulted Dr. Lester ETOH abuse: Will continue CIWA protocol. Ammonia level is 34. Constipation: Pt had large BM s/p fleet enema. Will continue miralax. Lactulose GI Ppx: protonix DVT ppx: SCD Code: full Disposition lives with family, wheelchair-bound, x 1 month send stroke Critical Care: No Time Spent Managing PTS Care (In Minutes): 35
[2023-06-21 10:21] VITALS: O2SAT 94
--- NOTE | 2023-06-21 11:08 | P.PN ---
Subjective Date of Service: 06/21/23 Primary Care Provider: here from [place] Chief Complaint: CHF, recent CVA (left weakness), HTN, Groin pain, UTI Subjective: No new changes Review of Systems 10-point ROS is otherwise unremarkable Physical Examination - Vital Signs Temperature: 97.9 F Blood Pressure: 185/86 Pulse: 89 Respirations: 20 Pulse Ox (%): 97 - Physical Exam General: Alert, Oriented x3 HEENT: Atraumatic Neck: Supple Respiratory: Clear to auscultation bilaterally Cardiovascular: No edema, Normal S1 S2 Gastrointestinal: Normal bowel sounds Assessment And Plan - Current Problems (Diagnosis) (1) Bilateral lower extremity edema Current Visit: Yes Status: Acute Plan: Switch Lasix to 20 mg daily on discharge monitor input and output correct electrolytes (2) HTN (hypertension) Current Visit: Yes Status: Acute Plan: continue coreg 25 mg po BID resume patient home dose Hydralazine and Verapmil continue to monitor. (3) HLD (hyperlipidemia) Current Visit: Yes Status: Acute Plan: Continue Lipitor 80 mg daily
[2023-06-21 12:14] VITALS: BP 163/80; TEMP 98.2
--- NOTE | 2023-06-21 22:51 | CON ---
Date of Consultation: 06/21/2023 Reason For Consultation: Stroke. History Of Present Illness: Mr. Cabello is a 52-year-old patient with diabetes mellitus, alcohol abuse , hypertension, chronic kidney disease, dyslipidemia, hypoxic respiratory failure, cystitis, had a ri ght brain left body stroke on May 07, 2023. The patient and his were visiting family from [facility] in [place], [place], when the event occurred. He was seen at [facility] and per t he patient's , possibly received medication to help reverse stroke which may have been TNKs. How ever, he still has significant deficits in the left side. The patient is now back to [facility] with groin pain and perhaps fluctuating weakness on the left side from stroke. His head CT scan done in the emergency room showed mild generalized brain atrophy, mild periventricular deep white ma tter chronic small vessel ischemic disease. The study did not report an acute ischemic event. [facility] er, his brain MRI returns now 3 days later, did show a 12 mm subacute infarct in the right basal gang angie. There were 2 small areas of normal signal in the right periventricular white matter and the rig ht deep white matter compatible also with small acute infarcts. He also had lumbar spine CT scan whi ch showed no acute lumbar spine abnormalities. The lower lumbar level disk bulge is likely present. In addition, there is a modified barium swallow given the patient's stroke and risk of aspiration. The study showed a pharyngeal residue. There was vallecular and pyriform area with residue which wai ared with a second swallow. There is spillage of bolus to the pharynx before a swallow due to the on set of swallowing. Past Medical History: As noted above. Surgical History: Left toe amputation, left eye surgery, cystitis with indwelling catheter. Social History: The patient lives in [place], visiting in [place], [place] from [place] when stroke o ccurred and the patient's did mention that she is stuck now and is unable to return. Family History: Noncontributory. Review of Systems: He has groin pain with left-sided weakness and numbness, incoordination, some difficulty with clear s peech, and some mild confusion since the stroke in mid May. Otherwise, negative on systems review. Physical Examination: Vital Signs: Blood pressure 163/80, pulse 89, respiratory rate 16, temperature 98.2, oxygen saturati on 94%. General: Mr. Cabello is lying in bed. His is actually helping him with a bowel movement to get h im cleaned up. HEENT: He did appear normocephalic, atraumatic. He does have slow responses. Chest: Clear. Abdomen: Soft. Extremities: No significant edema in his lower extremities. Neurological: Subtle decrease of left nasolabial fold. Left upper and lower extremity strength is d ecreased as well around 4/5, right side 5/5. Sensation decreased in the left compared to the right s linda. In terms of his gait, while he was up and ambulatory, the patient was set to have therapy via [facility] when he left from [facility]. I did some bed functional mobility activity. Laboratory Studies: White blood cell count 6.0, hemoglobin 9.4, platelets 307. Sodium 136, potassiu m 3.8, chloride 105, carbon dioxide 29, BUN 25, creatinine 1.96, glucose range from 212 to 267, calci um 8.4, magnesium 1.7, albumin 2.3. Urinalysis, 3+ protein, trace blood, and 1+ glucose. Assessment: Mr. Cabello is a 52-year-old patient, who has had a subacute stroke and 2 other acute stro kes all the left side. He should be optimized on medical management for additional reduction in stro ke risk. He also has risk of aspiration. His comorbidities are noted above. Plan: He may have physical, occupational, and speech therapy done via Home Health. He should have a ggressive management of his risk factors for stroke, which include hypertension, dyslipidemia, and hi s hydration level which is poor. He may be discharged and may follow up in clinic within the month and if he is still in the area, follow up with Neurology if he goes back [facility]. LB/MODL Voice ID: [id number] Report ID: [id number]
--- NOTE | 2023-06-22 17:58 | P.DS ---
Admission Date: 06/17/23 Discharge Date: 06/22/23 Primary Care Provider: here from [place] Disposition: ROUTINE DISCHARGE Discharge Condition: GOOD Reason for Admission: CHF, recent CVA (left weakness), HTN, Groin pain, UTI Brief History of Present Illness: Mr. Cabello is a 52-year-old male with a past medical history of alcohol abuse, diabetes, hypertension with CKD, hyperlipidemia, hypoxic respiratory failure, and cystitis, who sustained a right CVA on May 07, 2023. His states that they came to [place] from [place] to visit family in [place]. During their stay Mr. Cabello had a CVA and was evaluated and treated at [facility]. Although poor historian, the states that "they said he was going to have another stroke but they gave him some medicine to stop it." She cannot say if she has heard TNK or clot Buster or any other kind of medication. She just knows they gave him something to stop the stroke. Physical Exam General: Mild distress, Moderate distress, Obese, Other (growling with right testicular pain, states back of tongue feels swollen) HEENT: Atraumatic, Normocephalic Neck: Supple Respiratory: Diminished, Other (hypoventilation) Cardiovascular: Regular rate/rhythm, Edema Capillary refill: >2 Seconds Gastrointestinal: Hypoactive, No tenderness, Other (tender only to right testicular area) Musculoskeletal: Other (left great toe amputation) Integumentary: Other (right lower leg with areas of scabbing, left sided weakness) Neurological: Other (some effort against gravity to left lower extremity, left upper arm held in flexed position), Abnormal speech, Abnormal strength, Abnormal sensation Lymphatics: No axilla or inguinal lymphadenopathy Urinary: Sidhu catheter External genitalia: Tenderness, Other (US of testicles in ED normal, pt states post BM post enema the pain is severe) Hospital Course: 52-year-old male with a past medical history of alcohol abuse, diabetes, hypertension with CKD, hyperlipidemia, hypoxic respiratory failure, and cystitis, who sustained a right CVA on May 07, 2023. His states that they came to [place] from [place] to visit family in [place]. During their stay Mr. Cabello had a CVA and was evaluated and treated at [facility]. Although poor historian, the states that "they said he was going to have another stroke but they gave him some medicine to stop it." She cannot say if she has heard TNK or clot Buster or any other kind of medication. She just knows they gave him something to stop the stroke. Was noted to have prior CVA, hypertension with CKD, anemia, cystitis with chronic indwelling Sidhu catheter. Right testi cular pain ultrasound negative for torsion, epididymitis. Condition improved with antibiotics, PT OT, speech therapy, Patient tolerating diet, stable for discharge to home with follow-up appointment with primary care physician. Follow-up with neurology after discharge PROBLEM: prior CVA left-sided weakness April 2023-has been [id number] rehab after discharge Hypoxia treated with O2 2 L of oxygen per nasal cannula hypertension with CKD-treated with Coreg, aspirin,Atorvastatin 80mg po q HS was evaluated by cardiology and patient anemia-1 unit of packed red blood cells, cystitis with chronic indwelling Sidhu catheter-treated with p.o. Cipro Right testicular pain- ultrasound negative for torsion, epididymitis. Constipation treated with Alcohol protocol for history of alcohol abuse monitor for DTs Uncontrolled diabetes, treated with Accu-Cheks, sliding scale insulin educated on diabetic diet Case management has previously given the patient and a local resource packet for medication assistance and sliding scale PCP. The patient has a wheelchair at home. Was evaluated by physical, occupational, speech while inpatient. patient is currently wheelchair-bound Rad/Lab/Micro: Modified barium swallow study-Recommend Soft and Bite Sized diet and thin liquids with general safe swallow precautions including up to 90 degrees for all oral intake Brain MRI Two small areas of abnormal signal right periventricular white matter and right deep matter compatible with small acute infarct, : 12 millimeter subacute infarction right basal ganglia. CT of the lumbar spine IMPRESSION: No acute lumbar spine abnormality is seen. Lower lumbar level disc bulging is likely present. This is not fully evaluated on CT imaging.FINDINGS: No acute lumbar spine fracture seen. No aggressive m arrow pattern or malalignment.Paraspinal tissues are normal in thickness. No paraspinal abscess or hematoma seen. Posterior disc bulges are suspected lower lumbar levels although assessment is limited on CT. Air is present in the urinary bladder with thickened wall with Sidhu catheter in place. Moderate stool is retained in the rectum with mild presacral soft tissue thickening. Echocardiogram 1. NORMAL LEFT VENTRICULAR SYSTOLIC FUNCTION, EJECTION FRACTION 60-65%, NORMAL WALL MOTION 2. NORMAL DIASTOLIC FUNCTION 3. ELEVATED RIGHT ATRIAL PRESSURE GREATER THAN 20 mmHg Continue home medicines as previously prescribed GOAL: Clear understanding of disease process INSTRUCTIONS: Physician Discharge Instructions: -Follow-up with PCP in 1 to 2 weeks -Please call Dr. Mandujano at [phone] if any questions regarding hospital stay -Please call nursing station at [phone] if any nursing or medication questions -Return to the emergency room if symptoms worsen Diet: ADA, low sodium Activity: Fall precautions Vital Signs/Physical Exam: Temp Pulse Resp BP Pulse Ox 98.2 F 89 16 163/80 H 94 06/21/23 12:00 06/21/23 12:00 06/21/23 12:25 06/21/23 12:00 06/21/23 12:25 Laboratory Data at Discharge: WBC 6.00 thou/uL (4.3-10.9) 06/20/23 04:35 Hgb 9.4 g/dL (13.6-17.9) L 06/20/23 04:35 Hct 27.3 % (39.6-49.0) L 06/20/23 04:35 Plt Count 307 thou/uL (152-406) 06/20/23 04:35 Sodium 136 mEq/L (136-145) 06/21/23 03:34 Potassium 3.8 mEq/L (3.5-5.1) D 06/21/23 03:34 BUN 25 mg/dL (7-18) H 06/21/23 03:34 Creatinine 1.96 mg/dL (0.70-1.30) H 06/21/23 03:34 Glucose 267 mg/dL (74-106) H 06/21/23 03:34 Phosphorus 4.2 mg/dL (2.5-4.9) 06/21/23 03:34 Magnesium 1.7 mg/dL (1.6-2.4) 06/21/23 03:34 Total Bilirubin 0.3 mg/dL (0.2-1.0) 06/20/23 04:35 AST 9 U/L (15-37) L 06/20/23 04:35 ALT 13 U/L (16-61) L 06/20/23 04:35 Alkaline Phosphatase 79 U/L (45-117) 06/20/23 04:35 Triglycerides 122 mg/dL (<150) 06/18/23 04:20 Cholesterol 83 mg/dL (<200) 06/18/23 04:20 HDL Cholesterol 31 mg/dL (40-60) L 06/18/23 04:20 Cholesterol/HDL Ratio 2.68 06/18/23 04:20 Home Medications: Aspirin Chewable [Aspirin Chewable*] 81 mg PO DAILY 06/18/23 Atorvastatin Calcium [Lipitor] 80 mg PO BEDTIME 06/18/23 Ciprofloxacin HCl [Cipro 500 MG Tablet] 500 mg PO DAILY 06/18/23 Ferrous Sulfate 325 mg PO DAILY 06/18/23 Hum Insulin NPH/Reg Insulin Hm [Humulin 70-30 Vial] 15 unit SQ DAILY AT SUPPER 06/18/23 Hum Insulin NPH/Reg Insulin Hm [Humulin 70-30 Vial] 25 units SQ BREAKFAST 06/18/23 Tamsulosin [Flomax*] 0.8 mg PO DAILY WITH BREAKFAST 06/18/23 Carvedilol [Coreg] 25 mg PO BID #60 tab 06/21/23 Furosemide 20 mg PO DAILY 30 Days #30 tab 06/21/23 Gabapentin [Neurontin*] 100 mg PO TID #90 cap 06/21/23 Hydralazine HCl 50 mg PO TID #90 tab 06/21/23 Hydrocodone 10/APAP 325 [[place] 10/325*] 1 tab PO Q12HP PRN #30 tab 06/21/23 Insulin -Regular Human [Novolin -R*] See Protocol SQ ACHS ml 06/21/23 Nifedipine Xl [Procardia XL*] 60 mg PO BID #120 tab 06/21/23 Pantoprazole [Protonix Tab] 40 mg PO BID #60 tab 06/21/23 Polyethyl Gly 3350 [Glycolax*] 17 gm PO DAILY PRN #10 pkt 06/21/23 New Medications: Carvedilol [Coreg] 25 mg PO BID #60 tab Furosemide 20 mg PO DAILY 30 Days #30 tab Polyethyl Gly 3350 [Glycolax*] 17 gm PO DAILY PRN #10 pkt PRN Reason: Constipation Hydralazine HCl 50 mg PO TID #90 tab Gabapentin [Neurontin*] 100 mg PO TID #90 cap Hydrocodone 10/APAP 325 [[place] 10/325*] 1 tab PO Q12HP PRN #30 tab PRN Reason: Pain Scale 5-7 (Moderate) Nifedipine Xl [Procardia XL*] 60 mg PO BID #120 tab Pantoprazole [Protonix Tab] 40 mg PO BID #60 tab Physician Discharge Instructions: -DC IV and DC home -Follow-up with PCP in 1 to 2 weeks -Follow-up with Neurology in 1 to 2 weeks -Please call Dr. Mandujano at [phone] if any questions regarding hospital stay -Please call nursing station at [phone] if any nursing or medication questions -Return to the emergency room if symptoms worsen Diet: AHA Activity: Fall precautions Followup: Danny Dai MD [ASSOCIATE-ACTIVE - CAN ADMIT] - NONE,NONE [Primary Care Provider] - Physician Review: Patient Assessed, Agree with Above Assessment and Plan Time spent managing pt's care (in minutes): 55
== END 2023-06-21 13:45 | disposition home or self-care (01) | DRG 698 ==
LOC: ER 12:48 → ERHOLD 17:23 → 3RD-ICU 17:56 → 4TH 06-20 12:02
PROVIDERS: ADMIT Hospitalist; ATTEND Hospitalist
PROC: 30233N1 Transfusion of Nonautologous Red Blood Cells into Peripheral Vein, Percutaneous Approach (ICD-10-PCS; principal; 2023-06-17)
DX: T83.511A Infection and inflammatory reaction due to indwelling urethral catheter, initial encounter (principal); I50.33 Acute on chronic diastolic (congestive) heart failure; J96.01 Acute respiratory failure with hypoxia; I13.0 Hypertensive heart and chronic kidney disease with heart failure and stage 1 through stage 4 chronic kidney disease, or unspecified chronic kidney disease; I69.354 Hemiplegia and hemiparesis following cerebral infarction affecting left non-dominant side; N17.9 Acute kidney failure, unspecified; N30.90 Cystitis, unspecified without hematuria; N18.30 Chronic kidney disease, stage 3 unspecified; E11.22 Type 2 diabetes mellitus with diabetic chronic kidney disease; D63.1 Anemia in chronic kidney disease; D50.9 Iron deficiency anemia, unspecified; N50.811 Right testicular pain; K56.41 Fecal impaction; F10.10 Alcohol abuse, uncomplicated; E78.5 Hyperlipidemia, unspecified; Z79.4 Long term (current) use of insulin; Z79.82 Long term (current) use of aspirin; Z79.02 Long term (current) use of antithrombotics/antiplatelets; Z79.899 Other long term (current) drug therapy; Z89.412 Acquired absence of left great toe
CPT/HCPCS: 36415; 36430; 70450; 70551; 72131; 74176; 74230; 76870; 80048; 80053; 80061; 80069; 80076; 81001; 82140; 82728; 82947; 83540; 83735; 83880; 84439; 84443; 84466; 85025; 86850; 86900; 86901; 86920; 92611; 93306; 93880; 93971; 96374; 96375; 97110; 97161; 97165; 97530; 99284; C9113; J0360; J0744; J1100; J1644; J1815; J1940; J2405; J2916; J3475; J7050; P9016

== ENCOUNTER 2023-07-18 17:47 | Inpatient (IN) | payer OTHER, SELFPAY ==
--- NOTE | 2023-07-18 18:31 | RAD REPORT ---
EXAM DESCRIPTION: Janice Single View07/18/2023 6:22 pm CLINICAL HISTORY: sob COMPARISON: none FINDINGS: Pulmonary vascular congestion is present. Right base is mildly hazy Left lung appears clear Heart is mildly enlarged IMPRESSION: Pulmonary vascular congestion Right base is mildly hazy probably crowding of the pulmonary vessels. As alcira nfiltrate can have this appearance PA and lateral chest series is recommended
[2023-07-18 18:50] LABS: Absolute Basophils 0.1 K/uL (0-0.5); Absolute Eosinophils 0.1 K/uL (0-0.5); Absolute Lymphocytes (CBC) 1.3 K/uL (0.7-4.9); Absolute Monocytes 0.7 K/uL (0.1-1.3); Basophils % 0.9 % (0-1.3); Eosinophils % 1.3 % (0-4.4); Hematocrit 26.6 % (39.6-49.0); Hemoglobin 8.8 g/dL (13.6-17.9); Lymphocytes % 15.9 % (15.3-44.8); MCH 30.6 pg (27.0-35.0); MCHC 33.2 g/dL (32.0-36.0); MCV 92.4 fL (80-100); MPV 8.4 fL (7.6-11.3); Neutrophils % 72.9 % (41.7-73.7); Nucleated Red Blood Cells % 0.1 % (0-0); Platelets 229 thou/uL (152-406); RBC Red Blood Cell Count 2.88 M/uL (4.33-5.43); Red Cell Distribution Width 14.9 % (12.1-15.2)
[2023-07-18 18:53] LABS: PT Prothrombin Time 12.6 SECONDS (9.5-12.5); Protime INR 1.15
[2023-07-18 18:57] LABS: ALT/SGPT 26 U/L (16-61); AST/SGOT < 10 U/L (15-37); Albumin/Globulin Ratio 0.7 (1.1-1.8); Alkaline Phosphatase 96 U/L (45-117); BUN Blood Urea Nitrogen 47 mg/dL (7-18); Bicarbonate 21 mEq/L (21-32); Bilirubin Total 0.3 mg/dL (0.2-1.0); Globulin 4.1 g/dL (2.3-3.5); Glomerular Filtration Rate 28 ml/min (=/>90); Glucose Level 193 mg/dL (74-106); Protein, Total 7.1 g/dL (6.4-8.2); Sodium Level 140 mEq/L (136-145)
[2023-07-18] MEDS ORDERED: CEFTRIAXONE 1000 MG/VIAL ONE (19:16)
--- NOTE | 2023-07-18 19:16 | EDPHYS ---
Physician Documentation [facility] Name: Abel Cabello Age: 52 yrs Sex: Male : 1970 Arrival Date: 07/18/2023 Time: 17:47 Bed 13 Private MD: ED Physician Toribio Garcia HPI: 07/17 19:12 This 52 yrs old Male presents to ER via EMS with complaints of Shortness Of rn Breath. 19:12 The patient has shortness of breath at rest. Onset: The symptoms/episode began/occurred rn this morning. Duration: The symptoms are continuous. The patient's shortness of breath is aggravated by light activity, is alleviated by nothing. Severity of symptoms: At their worst the symptoms were moderate in the emergency department the symptoms are unchanged. The patient has not experienced similar symptoms in the past. Patient reports cough and shortness of breath that began this morning. No fall or injury. Reports recent stroke, on blood thinners. No fever. EMS reports oxygen 88%.. Historical: - Allergies: 17:55 No Known Allergies; iw - PMHx: 17:55 JOSSELYN; alcohol abuse; Hypertensive disorder; diabetes mellitus; Hypoxic Respiratory iw Failure; Cystitis with hematuria; CVA May 06; Left sided weakness from CVA; - Immunization history:: Adult Immunizations up to date. - Infectious Disease History:: Denies. - Social history:: Smoking status: unknown. - Family history:: not pertinent. - Hospitalizations: : The patient was recently seen at [facility]. ROS: 19:12 Constitutional: Negative for fever, chills, and weight loss, Cardiovascular: Negative rn for chest pain, palpitations, and edema, Respiratory: Positive for cough and shortness of breath Abdomen/GI: Negative for abdominal pain, nausea, vomiting, diarrhea, and constipation, MS/Extremity: Negative for injury and deformity, Skin: Negative for injury, rash, and discoloration, Exam: 19:12 Constitutional: This is a well developed, well nourished patient who is awake, alert, rn and in no acute distress. ENT: Dry mucous membranes, no stridor Cardiovascular: Regular rate and rhythm. No pulse deficits. Respiratory: Mild to moderate tachypnea, diminished breath sounds bilateral bases, no retractions Abdomen/GI: Soft, non-tender MS/ Extremity: Pulses equal, no cyanosis. Neurovascular intact. Full, normal range of motion. Equal circumference. Neuro: Awake and alert, GCS 15 19:51 ECG was reviewed by the Attending Physician. rn Vital Signs: 17:54 BP 92 / 67; Pulse 64; Resp 22; Temp 98.3; Pulse Ox 90% on R/A; iw 18:50 BP 113 / 66; Pulse 65; Resp 15; Pulse Ox 97% on 4 lpm NC; me1 19:48 BP 90 / 59; Pulse 61; Resp 22; Pulse Ox 92% on 4 lpm NC; me1 20:13 BP 74 / 61; Pulse 58; Resp 20; Pulse Ox 88% on 4 lpm NC; me1 20:22 BP 92 / 70; Pulse 56; Resp 17; Pulse Ox 98% on 4 lpm NC; me1 20:27 BP 61 / 51; Pulse 54; Resp 14; Pulse Ox 95% on 4 lpm NC; me1 20:33 BP 62 / 52; Pulse 49; Resp 11; Pulse Ox 88% on Non-rebreather mask; FiO2 100 %; me1 20:35 BP 65 / 57; Pulse 51; Resp 14; Pulse Ox 88% on Non-rebreather mask; FiO2 100 %; me1 20:37 BP 73 / 60; Pulse 53; Resp 16; Pulse Ox 91% on Non-rebreather mask; FiO2 100 %; me1 20:38 BP 86 / 68; Pulse 55; Resp 17; Pulse Ox 92% on Non-rebreather mask; FiO2 100 %; me1 20:40 BP 144 / 84; Pulse 66; Resp 20; Pulse Ox 96% on assisted respirations w/ambubag; me1 20:42 BP 118 / 81; Pulse 82; Resp 24; Pulse Ox 98% on assisted w/ambubag; me1 20:45 BP 107 / 76; Pulse 76; Resp 22; Pulse Ox 99% on assisted w/ambubag; me1 20:47 BP 102 / 75; Pulse 73; Resp 18; Pulse Ox 98% on assisted w/ambubag; me1 20:50 BP 99 / 74; Pulse 71; Resp 20; Pulse Ox 97% on assisted w/ambu via ETT; me1 20:52 BP 100 / 75; Pulse 70; Resp 16; Pulse Ox 97% on assisted w/ambu via ETT; me1 20:55 BP 98 / 71; Pulse 69; Resp 16; Pulse Ox 96% on assisted w/ambu via ETT; me1 21:00 BP 101 / 73; Pulse 68; Resp 16; Pulse Ox 90% on assisted w/ambu via ETT; me1 21:02 BP 100 / 72; Pulse 67; Resp 16; Pulse Ox 89% on on vent via ETT; me1 21:15 BP 105 / 73; Pulse 62; Resp 16; Pulse Ox 94% on ETT vent; me1 21:35 BP 107 / 70; Pulse 61; Resp 16; Pulse Ox 96% on ETT vent; me1 21:45 BP 113 / 73; Pulse 60; Resp 16; Pulse Ox 99% on ETT vent; me1 22:00 BP 115 / 71; Pulse 59; Resp 16; Pulse Ox 97% on ETT vent; ne1 MDM: 17:53 Patient medically screened. rn 19:12 Differential diagnosis: Anemia Bronchitis pneumonia, Pneumothorax pulmonary edema, rn Pulmonary Embolism. Data reviewed: vital signs, nurses notes, lab test result(s), EKG, radiologic studies, plain films, and as a result, I will admit patient. Consideration of Admission/Observation Patient was admitted/placed on observation. Escalation of care including admission/observation considered. Test considered but Not performed: CT: CT chest for PE considered but creatinine too high. Care significantly affected by the following chronic conditions: Diabetes, Hypertension. Counseling: I had a detailed discussion with the patient and/or guardian regarding the historical points, exam findings, and any diagnostic results supporting the discharge/admit diagnosis, lab results, radiology results, the need for further work-up and treatment in the hospital. 07/17 17:54 Order name: Blood Culture Adult (2) rn 07/17 17:54 Order name: CBC with Diff; Complete Time: 19: rn 07/17 17:54 Order name: CMP; Complete Time: 19: rn 07/17 17:54 Order name: Lactate w/ 2H reflex if indic.; Complete Time: 19: rn 07/17 17:54 Order name: Protime (+inr); Complete Time: 19:08 rn 07/17 17:54 Order name: Ptt, Activated; Complete Time: 19: rn 07/17 18:55 Order name: Glucose, Ancillary Testing; Complete Time: 19: EDMS 07/17 20:38 Order name: ABG Arterial Blood Gas [facility] 07/17 20:43 Order name: Glucose, Ancillary Testing [facility] 07/17 20:44 Order name: CBC with Automated Diff [facility] 07/17 20:44 Order name: Comprehensive Metabolic Panel [facility] 07/17 20:44 Order name: Magnesium [facility] 07/17 20:44 Order name: Phosphorus [facility] 07/17 20:44 Order name: Troponin High Sensitivity [facility] 07/17 20:44 Order name: Troponin High Sensitivity [facility] 07/17 20:44 Order name: Troponin High Sensitivity [facility] 07/17 20:44 Order name: Troponin High Sensitivity [facility] 07/17 20:56 Order name: NT PRO-BNP [facility] 07/17 17:54 Order name: Chest Single View XRAY; Complete Time: 18:32 rn 07/17 20:53 Order name: Chest Single View [facility] 07/17 20:44 Order name: CONS Physician Consult [facility] 07/17 17:54 Order name: Accucheck; Complete Time: 18:40 rn 07/17 17:54 Order name: Cardiac monitoring; Complete Time: 18:39 rn 07/17 17:54 Order name: EKG - Nurse/Tech; Complete Time: 18:39 rn 07/17 17:54 Order name: IV Saline Lock - Large Bore; Complete Time: 18:31 rn 07/17 17:54 Order name: Labs collected and sent; Complete Time: 18:31 rn 07/17 17:54 Order name: O2 Per Protocol; Complete Time: 18:31 rn 07/17 17:54 Order name: O2 Sat Monitoring; Complete Time: 18:31 rn 07/17 17:54 Order name: Vital Signs; Complete Time: 18:31 rn EC:51 Rate is 64 beats/min. Rhythm is regular. QRS [place] is Normal. SC interval is normal. QRS rn interval is normal. QT interval is normal. No Q waves. T waves are Normal. No ST changes noted. Clinical impression: Normal ECG. Interpreted by me. Reviewed by me. Administered Medications: 19:28 Drug: Rocephin IV 1 grams IV at calculated rate once; Given slow IV push per pharmacy me1 instructions Route: IV; Rate: calculated rate; Site: right antecubital; 19:30 Follow up: Response: No adverse reaction; IV Status: Completed infusion me1 19:29 Drug: Zithromax IVPB 500 mg IVPB once over 1 hrs; mix in 250 mL NS Route: IVPB; Infused me1 Over: 1 hrs; Site: right antecubital; 21:45 Follow up: Response: No adverse reaction; IV Status: Completed infusion me1 20:48 Drug: Etomidate IVP 20 mg IVP once Route: IVP; Site: right hand; me1 22:13 Follow up: Response: No adverse reaction me1 20:48 Drug: Rocuronium IVP 70 mg IVP once Route: IVP; Site: right hand; me1 22:13 Follow up: Response: No adverse reaction me1 Point of Care Testing: Blood Glucose: 18:42 Blood Glucose: 191 mg/dL; me1 Ranges: Critical Glucose Levels:Adult <50 mg/dl or >400 mg/dl <40 mg/dl or >180 mg/dl Disposition Summary: 07/18/23 19:15 Hospitalization Ordered Notes: Hospitalization Status: Inpatient Admission rn Provider: Omari Astorga rn Condition: Stable rn Problem: new rn Symptoms: have improved rn Bed/Room Type: Standard rn Location: Intensive Care Unit(07/18/23 20:59) cg Room Assignment: 5-(07/18/23 20:59) cg Diagnosis - Pneumonia, unspecified organism rn - Hypoxemia rn Forms: - Medication Reconciliation Form rn - SBAR form rn - Leadership Thank You Letter rn Signatures: Dispatcher [employer] Maria Luisa Paige RN RN Toribio Garcia MD MD rn Garcia, Cindy, RN RN Graciela Gentile RN RN me1 Corrections: (The following items were deleted from the chart) 17:54 17:54 BLOOD CULTURE*+BA.LAB.BRZ ordered. EDMS EDMS 17:54 17:54 CBC+H.LAB.BRZ ordered. EDMS EDMS 17:54 17:54 COMPREHENSIVE METABOLIC PANEL+C.LAB.BRZ ordered. EDMS EDMS 17:54 17:54 LACTATE+C.LAB.BRZ ordered. EDMS EDMS 17:54 17:54 PROTIME (+INR)+COAG.LAB.BRZ ordered. EDMS EDMS 17:54 17:54 PTT, ACTIVATED+COAG.LAB.BRZ ordered. EDMS EDMS 18:35 18:35 Chest For PE Angio+CT.RAD.BRZ ordered. EDMS EDMS 19:13 19:12 Constitutional: Negative for fever, chills, and weight loss, Cardiovascular: rn Negative for chest pain, palpitations, and edema, Respiratory: Positive for cough and shortness of breath Abdomen/GI: Negative for abdominal pain, nausea, vomiting, diarrhea, and constipation, MS/Extremity: Negative for injury and deformity, Skin: Negative for injury, rash, and discoloration, Neuro: Negative for headache, weakness, numbness, tingling, and seizure, rn 20: 19:15 Telemetry/MedSurg (Inpatient) rn cg 20:59 19:15 rn cg
--- NOTE | 2023-07-18 19:16 | ER ---
Nurse's Notes [facility] Name: Abel Cabello Age: 52 yrs Sex: Male : 1970 Arrival Date: 07/18/2023 Time: 17:47 Bed 13 Private MD: Diagnosis: Pneumonia, unspecified organism;Hypoxemia Presentation: 07/17 17:54 Chief complaint: EMS states: Called to patient's home due to patient having some iw shortness of breath. EMS states that pt's initial O2 sat was 88% on RA. Shortness of breath started 2 days ago and is progressively getting worse. Coronavirus screen: Client denies travel out of the [place] in the last 14 days. At this time, the client does not indicate any symptoms associated with coronavirus-19. Ebola Screen: Patient denies travel to an Ebola-affected area in the 21 days before illness onset. No symptoms or risks identified at this time. Initial Sepsis Screen: Does the patient meet any 2 criteria? No. Patient's initial sepsis screen is negative. Does the patient have a suspected source of infection? No. Patient's initial sepsis screen is negative. Risk Assessment: Do you want to hurt yourself or someone else? Patient reports no desire to harm self or others. Onset of symptoms was July 18, 2023. 17:54 Method Of Arrival: EMS: [facility] iw 17:54 Acuity: PHILIP 2 iw 17:56 Care prior to arrival: Medication(s) given: Normal saline infusion, 125mL IV initiated. cm10 18 GA, in the left antecubital area, Oxygen administered. via nasal cannula. Triage Assessment: 17:57 General: Appears in no apparent distress. comfortable, Behavior is calm, cooperative. 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 - Infectious Disease History:: Denies. - Social history:: Smoking status: unknown. - Family history:: not pertinent. - Hospitalizations: : The patient was recently seen at [facility]. Screenin:[facility] ED Fall Risk Assessment (Adult) History of falling in the last 3 months, me1 including since admission No falls in past 3 months (0 pts) Confusion or Disorientation No (0 pts) Intoxicated or Sedated No (0 pts) Impaired Gait No (0 pts) Mobility Assist Device Used No (0 pt) Altered Elimination No (0 pt) Score/Fall Risk Level 0 - 2 = Low Risk Maintained a safe environment, Provided non-skid footwear, Hourly rounding (assess needs \\T\\ fall precautionary measures) done. Abuse screen: Denies threats or abuse. Nutritional screening: No deficits noted. Tuberculosis screening: No symptoms or risk factors identified. Assessment: 18:44 General: Appears uncomfortable, obese, well groomed, well developed, well nourished, me1 Behavior is calm, cooperative, appropriate for age, Reports SOB that started 2 days ago and has continuously gotten worse. Edema noted to BLE. Pain: Complains of pain in rectum Pain does not radiate. Pain currently is 8 out of 10 on a pain scale. Quality of pain is described as sharp, Pain began "a while ago" states he has been here for the pain but doesn't know what is causing it. Is continuous. Neuro: Level of Consciousness is awake, alert, obeys commands, Oriented to person, place, time, situation, Appropriate for age. Cardiovascular: Patient's skin is warm and dry. Cardiovascular: Rhythm is sinus rhythm. Respiratory: Airway is patent Respiratory effort is even, unlabored, Respiratory pattern is regular, symmetrical. GI: Reports pain in rectum. : No signs and/or symptoms were reported regarding the genitourinary system. EENT: No signs and/or symptoms were reported regarding the EENT system. Derm: Skin is intact, is healthy with good turgor, Skin is pink, warm \\T\\ dry. Musculoskeletal: Range of motion: intact in all extremities. 18:44 Pain: Complains of pain in chest Pain does not radiate. Pain at worst was 2 out of 10 me1 on a pain scale. Quality of pain is described as stabbing, Pain began suddenly, Is lasting a few minutes. Respiratory: Breath sounds are diminished in left posterior lower lobe and right posterior lower lobe. 22:15 General: K 6.7. me1 22:25 General: Called Dr Astorga about potassium level. Dr Astorga is putting orders in.. me1 Vital Signs: 17:54 BP 92 / 67; Pulse 64; Resp 22; Temp 98.3; Pulse Ox 90% on R/A; iw 18:50 BP 113 / 66; Pulse 65; Resp 15; Pulse Ox 97% on 4 lpm NC; me1 19:48 BP 90 / 59; Pulse 61; Resp 22; Pulse Ox 92% on 4 lpm NC; me1 20:13 BP 74 / 61; Pulse 58; Resp 20; Pulse Ox 88% on 4 lpm NC; me1 20:22 BP 92 / 70; Pulse 56; Resp 17; Pulse Ox 98% on 4 lpm NC; me1 20:27 BP 61 / 51; Pulse 54; Resp 14; Pulse Ox 95% on 4 lpm NC; me1 20:33 BP 62 / 52; Pulse 49; Resp 11; Pulse Ox 88% on Non-rebreather mask; FiO2 100 %; me1 20:35 BP 65 / 57; Pulse 51; Resp 14; Pulse Ox 88% on Non-rebreather mask; FiO2 100 %; me1 20:37 BP 73 / 60; Pulse 53; Resp 16; Pulse Ox 91% on Non-rebreather mask; FiO2 100 %; me1 20:38 BP 86 / 68; Pulse 55; Resp 17; Pulse Ox 92% on Non-rebreather mask; FiO2 100 %; me1 20:40 BP 144 / 84; Pulse 66; Resp 20; Pulse Ox 96% on assisted respirations w/ambubag; me1 20:42 BP 118 / 81; Pulse 82; Resp 24; Pulse Ox 98% on assisted w/ambubag; me1 20:45 BP 107 / 76; Pulse 76; Resp 22; Pulse Ox 99% on assisted w/ambubag; me1 20:47 BP 102 / 75; Pulse 73; Resp 18; Pulse Ox 98% on assisted w/ambubag; me1 20:50 BP 99 / 74; Pulse 71; Resp 20; Pulse Ox 97% on assisted w/ambu via ETT; me1 20:52 BP 100 / 75; Pulse 70; Resp 16; Pulse Ox 97% on assisted w/ambu via ETT; me1 20:55 BP 98 / 71; Pulse 69; Resp 16; Pulse Ox 96% on assisted w/ambu via ETT; me1 21:00 BP 101 / 73; Pulse 68; Resp 16; Pulse Ox 90% on assisted w/ambu via ETT; me1 21:02 BP 100 / 72; Pulse 67; Resp 16; Pulse Ox 89% on on vent via ETT; me1 21:15 BP 105 / 73; Pulse 62; Resp 16; Pulse Ox 94% on ETT vent; me1 21:35 BP 107 / 70; Pulse 61; Resp 16; Pulse Ox 96% on ETT vent; me1 21:45 BP 113 / 73; Pulse 60; Resp 16; Pulse Ox 99% on ETT vent; me1 22:00 BP 115 / 71; Pulse 59; Resp 16; Pulse Ox 97% on ETT vent; me1 ED Course: 17:53 Patient arrived in ED. iw 17:53 Toribio Garcia MD is Attending Physician. rn 17:55 Triage completed. iw 17:57 Arm band placed on Patient placed in an exam room, on a stretcher, on oxygen, on pulse cm10 oximetry. 18:00 Graciela Gentile RN is Primary Nurse. me1 18:23 Initial lab(s) drawn, by me, sent to lab. First set of blood cultures drawn by oh. me1 18:24 Chest Single View XRAY In Process Unspecified. EDMS 18:25 Inserted saline lock: 20 gauge in right antecubital area, using aseptic technique. me1 18:31 CBC with Diff Sent. me1 18:31 CMP Sent. me1 18:31 Lactate w/ 2H reflex if indic. Sent. me1 18:31 Protime (+inr) Sent. me1 18:31 Ptt, Activated Sent. me1 18:35 Second set of blood cultures drawn. me1 18:39 Client placed on continuous cardiac and pulse oximetry monitoring. NIBP monitoring me1 applied. equipment monitor phototypesetting on. Pulse ox on. NIBP on. 18:39 EKG done, by ED staff, reviewed by Toribio Garcia MD. me1 18:49 Patient has correct armband on for positive identification. Bed in low position. Call me1 light in reach. Side rails up X2. Provided Education on: POC. Verbalized understanding. . 18:49 No provider procedures requiring assistance completed. me1 19:15 Omari Astorga MD is Hospitalizing Provider. rn 19:29 Maintain EMS IV. Dressing intact. Good blood return noted. Site clean \\T\\ dry. Gauge \\T\\ me 1 site: 18g LAC. 22:33 Patient admitted, IV remains in place. me1 Administered Medications: 19:28 Drug: Rocephin IV 1 grams IV at calculated rate once; Given slow IV push per pharmacy me1 instructions Route: IV; Rate: calculated rate; Site: right antecubital; 19:30 Follow up: Response: No adverse reaction; IV Status: Completed infusion me1 19:29 Drug: Zithromax IVPB 500 mg IVPB once over 1 hrs; mix in 250 mL NS Route: IVPB; Infused me1 Over: 1 hrs; Site: right antecubital; 21:45 Follow up: Response: No adverse reaction; IV Status: Completed infusion me1 20:48 Drug: Etomidate IVP 20 mg IVP once Route: IVP; Site: right hand; me1 22:13 Follow up: Response: No adverse reaction me1 20:48 Drug: Rocuronium IVP 70 mg IVP once Route: IVP; Site: right hand; me1 22:13 Follow up: Response: No adverse reaction me1 Medication: 22:33 VIS not applicable for this client. me1 Point of Care Testing: Blood Glucose: 18:42 Blood Glucose: 191 mg/dL; me1 Ranges: Output: 22:29 Urine: 1000ml (Sidhu); Total: 1000ml. me1 Outcome: 19:15 Decision to Hospitalize by Provider. rn 22:19 Admitted to ICU accompanied by nurse, via stretcher, room 5, with oxygen, on monitor, jwLove with chart, Report called to DUSTY Yee 22:19 Condition: stable 22:19 Instructed on the need for admit, 22:47 Patient left the ED. me1 Signatures: Dispatcher [employer] EDMaria Luisa Shannon RN RN iw Toribio Garcia MD MD rn Waits, Jodi, RN RN jw7 Shruthi Mcmahan RN RN cm10 Graciela Gentile RN RN me1 Corrections: (The following items were deleted from the chart) 18:01 17:54 Chief complaint: EMS states: Called to patient's home due to patient having some me1 shortness of breath. EMS states that pt's initial O2 sat was 88% on RA. Shortness of breath started 2 days ago and is progressively getting worse. iw 22:31 18:50 BP 113 / 66; Pulse 65bpm; Resp 15bpm; Pulse Ox 97% RA; me1 me1
[2023-07-18] MEDS ORDERED: AZITHROMYCIN 500 MG INJ IVPB ONE (19:17)
[2023-07-18] MEDS ORDERED: NA CHLORIDE 0.9% 250 ML ONE (19:17)
[2023-07-18] MEDS ORDERED: NA CHLORIDE 0.9% 1,000 ML ONE (20:21)
[2023-07-18] MEDS: NA CHLORIDE 0.9% 1,000 ML IV ONE (20:26)
[2023-07-18] MEDS: SODIUM BICARBONATE 4.2% IV ONE ×2 (20:29→22:31)
[2023-07-18] MEDS: ALBUMIN HUMAN 25% 100 ML IV ONE (20:30)
[2023-07-18] MEDS: INSULIN REGULAR (HUMAN) 100 UNIT/ML IV ONE ×2 (20:34→23:33)
[2023-07-18] MEDS ORDERED: NOREPINEPHRINE BITARTRATE/D5W 4 MG/250 ML BAG IV ONE (20:36)
[2023-07-18] MEDS ORDERED: ACETAMINOPHEN 650MG/RECT SUPP PR PRN (20:37)
[2023-07-18] MEDS ORDERED: ALBUTEROL 2.5 MG/3 ML NEB SOL NEB PRN (20:37)
[2023-07-18] MEDS: NOREPINEPHRINE 4 MG in D5W 250 ML IV SCH (20:37)
--- NOTE | 2023-07-18 20:54 | P.HP ---
Certification for Inpatient Patient admitted to: Inpatient With expected LOS: >2 Midnights Practitioner: I am a practitioner with admitting privileges, knowledge of patient current condition, hospital course, and medical plan of care. Services: Services provided to patient in accordance with Admission requirements found in Title 42 Section 412.3 of the Code of Federal Regulations Patient History Date of Service: 07/18/23 Reason for admission: SOB/ CP History of Present Illness: 52 yrs old Male with past medical history of hypertension, diabetes, CVA with left-sided weakness and history of cystitis and history of alcohol abuse came to ER with shortness of breath. Patient also complains of chest discomfort. Associated with cough with no expectoration. Denies any fever or chills. No sick contacts. Had a recent stroke. Patient also complains of generalized weakness. At the time of interview patient complains of chest discomfort and had become bradycardic and hypotensive. Patient noted to have hyperkalemia and antihyperkalemia measures were given. Patient became hypoxic and hypotensive and was started on IV fluids and albumin without much changes and had to be started on Levophed and for airway protection and for respiratory distress patient was intubated by the ER physician. Patient is being admitted to the ICU for further management Allergies No Known Allergies Allergy (Unverified 06/17/23 19:52) Home medications list reviewed: Yes Home Medications: Aspirin Chewable [Aspirin Chewable*] 81 mg PO DAILY 06/18/23 Atorvastatin Calcium [Lipitor] 80 mg PO BEDTIME 06/18/23 Ciprofloxacin HCl [Cipro 500 MG Tablet] 500 mg PO DAILY 06/18/23 Ferrous Sulfate 325 mg PO DAILY 06/18/23 Hum Insulin NPH/Reg Insulin Hm [Humulin 70-30 Vial] 15 unit SQ DAILY AT SUPPER 06/18/23 Hum Insulin NPH/Reg Insulin Hm [Humulin 70-30 Vial] 25 units SQ BREAKFAST 06/18/23 Tamsulosin [Flomax*] 0.8 mg PO DAILY WITH BREAKFAST 06/18/23 Carvedilol [Coreg] 25 mg PO BID #60 tab 06/21/23 Furosemide 20 mg PO DAILY 30 Days #30 tab 06/21/23 Gabapentin [Neurontin*] 100 mg PO TID #90 cap 06/21/23 Hydralazine HCl 50 mg PO TID #90 tab 06/21/23 Hydrocodone 10/APAP 325 [Pow[place] 10/325*] 1 tab PO Q12HP PRN #30 tab 06/21/23 Insulin -Regular Human [Novolin -R*] See Protocol SQ ACHS ml 06/21/23 Nifedipine Xl [Procardia XL*] 60 mg PO BID #120 tab 06/21/23 Pantoprazole [Protonix Tab] 40 mg PO BID #60 tab 06/21/23 Polyethyl Gly 3350 [Glycolax*] 17 gm PO DAILY PRN #10 pkt 06/21/23 - Past Medical/Surgical History Diabetic: Yes Past Medical History: Reviewed- Non-Contributory -: HTN -: DM -: CVA (May 06, 2022) -: ETOH abuse -: Left eye injury -: JOSSELYN -: Hypoxic respiratory failure -: cystitis with indwelling white Past Surgical History: Reviewed- Non-Contributory -: left toe amputation -: left eye injury Psychosocial/ Personal History: Lives in [place] with his . They were here visiting family in [place] last month when Mr. Cabello had a CVA. He went [facility] [place]. His states, "now we are stuck here" - Social History Smoking Status: Former smoker Alcohol use: Yes CD- Drugs: No Caffeine use: No Review of Systems is unable to be obtained Physical Examination - Vital Signs Temperature: 98.3 F Blood Pressure: 92/66 Pulse: 78 Respirations: 18 Pulse Ox (%): 98 - Physical Exam General: Severe distress, Obese HEENT: Atraumatic, Normocephalic Neck: Supple Respiratory: Diminished, Crackles/rales, Expiratory wheezes Cardiovascular: No murmurs, Abnormal S1 S2 Capillary refill: <2 Seconds Gastrointestinal: W/out hepatosplenomegaly, No tenderness Musculoskeletal: No clubbing, No swelling Integumentary: No rashes Neurological: Abnormal gait, Abnormal speech Lymphatics: No axilla or inguinal lymphadenopathy - Studies Laboratory Data (last 24 hrs) 07/18/23 07/18/23 07/18/23 18:23 18:23 18:23 WBC 8.20 Hgb 8.8 L Hct 26.6 L Plt Count 229 PT 12.6 H INR 1.15 APTT 33.0 Sodium 140 Potassium 6.0 H BUN 47 H Creatinine 2.65 H Glucose 193 H Total Bilirubin 0.3 AST < 10 L ALT 26 Alkaline Phosphatase 96 Assessment and Plan - Problems (Diagnosis) (1) Shock Current Visit: Yes Status: Acute Plan: Shock multifactorial Possible septic versus cardiogenic. Started on IV fluids and albumin without much benefit Started on Levophed Admit to ICU. Will obtain lactic acid levels Acute hypoxic respiratory failure Intubated on mechanical ventilator support Will get a pulmonology consult Will try to wean down Hyperkalemia Antihyperkalemic measures Monitor under telemetry Acute kidney injury Nephrology consulted Renal parameters monitor Electrolytes monitored and replace accordingly Pulmonary edema Acute on chronic CHF possibly Cardiology evaluation Will get an echocardiogram Hypertension Antihypertensives titrated Continue home medications and titrate as needed Hyperlipidemia Continue statin GI/DVT prophylaxis Advanced directive full code Plan to discharge in: Greater than 2 days - Advance Directives Does patient have a Living Will: No Does patient have a Durable POA for Healthcare: No - Code Status/Comfort Care Code Status: Full Code Time Spent Managing Pts Care (In Minutes): 62
[2023-07-18] MEDS ORDERED: VANCOMYCIN 1 GM in NA CHLORIDE 0.9% 250 ML IVPB SCH (21:00)
--- NOTE | 2023-07-18 21:31 | RAD REPORT ---
EXAM DESCRIPTION: Janice Single View07/18/2023 9:08 pm CLINICAL HISTORY: Device placement endotracheal tube placement IMPRESSION: An endotracheal tube has been inserted with its tip at the level of the aortic arch in g ood position A nasogastric tube has been placed with its tip near the junction of gastric fundus and body
--- NOTE | 2023-07-18 21:31 | P.PN ---
Date of Service: 07/18/23 I responded to an emergency consultation from hospitalist, patient boarding in our emergency department, pending room, patient noted to be unresponsive with sonorous respirations. I decided to emergently intubate the patient. I intubated with an 8.0 ET tube at 24 cm at the teeth without complication. I independently reviewed the postintubation chest x-ray showed which showed appropriate and adequate placement of the ET tube approximately 2 cm above the loida. Patient with appropriate fogging in the ET tube as well as colorimeter change. Additionally patient noted to be hypotensive, patient was emergently started on norepinephrine. Given the need for vasopressor use, I decided to place a central line. I used sterile technique, placed using ultrasound guidance in the right femoral vein. Blood aspirated from all 3 ports without issue. No arterial injury identified on puncture. 7.5 Croatian three-way central line kit years. Chan Sandhu MD
[2023-07-18 21:37] LABS: Absolute Basophils 0.1 K/uL (0-0.5); Absolute Eosinophils 0.1 K/uL (0-0.5); Absolute Lymphocytes (CBC) 1.1 K/uL (0.7-4.9); Absolute Monocytes 0.7 K/uL (0.1-1.3); Absolute Neutrophil 5.4 K/uL (1.8-8.0); Basophils % 0.7 % (0-1.3); Hematocrit 25.4 % (39.6-49.0); Hemoglobin 8.5 g/dL (13.6-17.9); MCH 31.1 pg (27.0-35.0); MCHC 33.3 g/dL (32.0-36.0); MCV 93.3 fL (80-100); MPV 8.4 fL (7.6-11.3); Monocytes % 9.7 % (3.3-12.3); Neutrophils % 73.6 % (41.7-73.7); Nucleated Red Blood Cells % 0.1 % (0-0); Platelets 210 thou/uL (152-406); RBC Red Blood Cell Count 2.72 M/uL (4.33-5.43); Red Cell Distribution Width 15.1 % (12.1-15.2)
[2023-07-18 21:55] LABS: Troponin High Sensitivity 32.9 pg/mL (<58.9)
[2023-07-18 22:12] LABS: Albumin/Globulin Ratio 0.8 (1.1-1.8); Anion Gap 8.7 mEq/L (5.0-15.0); Bilirubin Total 0.3 mg/dL (0.2-1.0); Globulin 3.9 g/dL (2.3-3.5); Magnesium 2.4 mg/dL (1.6-2.4); Phosphorus 4.1 mg/dL (2.5-4.9); Protein, Total 6.9 g/dL (6.4-8.2)
[2023-07-18 22:15] LABS: Potassium 6.7 mEq/L (3.5-5.1)
[2023-07-18] MEDS: ALBUTEROL 2.5 MG/3 ML NEB SOL NEB ONE (22:28)
[2023-07-18] MEDS ORDERED: CALCIUM GLUC 10% INJ 4.65 MEQ in NA CHLORIDE 0.9% 100 ML IV ONE (22:28)
[2023-07-18] MEDS: SODIUM ZIRCONIUM CYCLOSILICATE 10 GM/PKT PO ONE (22:30)
[2023-07-18] MEDS: IPRATROPIUM BROM 0.5MG/2.5ML NEB SCH (23:00)
[2023-07-18] MEDS: VANCOMYCIN 1.75 GM in NA CHLORIDE 0.9% 500 ML IVPB SCH (23:00)
[2023-07-18 23:13] LABS: Band Neutrophils 6 % (0-1); Differential Total Cells Count 100; Eosinophils 1 % (0-3); Lymphocytes 22 % (15-42); Monocytes 4 % (0-10); Segmented Neutrophils 67 % (40-80)
[2023-07-18 23:14] LABS: Blood Morphology Comment NOT SEEN (NOT SEEN); Platelet Estimate ADEQ
[2023-07-18 23:16] LABS: Arterial Blood Carboxyhemoglob 0.9 % (0-1.5); Blood Gas Oxyhemoglobin 93.5 % (94-97); Blood Gas THB 9.1 g/dl (12-18); Blood O2 Saturation 96.1 % (92-98.5)
[2023-07-18] MEDS: SODIUM ZIRCONIUM CYCLOSILICATE 10 GM/PKT ONE (23:20)
[2023-07-18] MEDS: SODIUM BICARB 50 MEQ/50ML VIAL ONE (23:20)
[2023-07-18] MEDS: PIPER TAZO 3.375 GM in NA CHLORIDE 0.9% 100 ML IV ONE (23:24)
[2023-07-19] MEDS: CALCIUM GLUCONATE 1 GM IVPB 1 GM/50 ML BAG IV ONE ×2 (00:02→08:16)
[2023-07-19] MEDS: NOREPINEPHRINE BITARTRATE/D5W 4 MG/250 ML KIT IV ONE (00:06)
[2023-07-19] MEDS: VANCOMYCIN 1 GM/VIAL ONE (00:25)
[2023-07-19] MEDS: VANCOMYCIN 500 MG/VIAL ONE (00:25)
[2023-07-19] MEDS: NA CHLORIDE 0.9% 500 ML ONE (00:26)
[2023-07-19] MEDS: propofoL 1,000 MG/100 ML VIAL IV SCH (00:34)
[2023-07-19] MEDS: HEPARIN 5000 UNIT/ML 1 ML VIAL SQ SCH (00:38)
[2023-07-19] MEDS: FUROSEMIDE 40 MG/4 ML VIAL IV SCH (00:40)
[2023-07-19] MEDS: PIPER TAZO 3.375 GM in NA CHLORIDE 0.9% 100 ML IV ONE (01:00)
[2023-07-19] MEDS ORDERED: PIPER TAZO 3.375 GM in NA CHLORIDE 0.9% 100 ML IV SCH (01:00)
[2023-07-19] MEDS ORDERED: NA CHLORIDE 0.9% 250 ML IV PRN (01:41)
[2023-07-19] MEDS ORDERED: FENTANYL CITR 100 MCG/2 ML IV PRN ×2 (01:41→07:19)
[2023-07-19] MEDS ORDERED: MIDAZOLAM HCL 2 MG/2 ML INJ IV PRN (01:41)
[2023-07-19] MEDS ORDERED: LORazepam 2 MG/ML VIAL IV PRN (01:41)
[2023-07-19] MEDS ORDERED: HALOPERIDOL LACT 5 MG/ML INJ IV PRN (01:41)
[2023-07-19 05:12] LABS: Troponin High Sensitivity 21.5 pg/mL (<58.9)
[2023-07-19] MEDS: PIPER TAZO 3.375 GM in NA CHLORIDE 0.9% 100 ML IV SCH (05:20)
[2023-07-19 05:29] LABS: Anion Gap 8.9 mEq/L (5.0-15.0); Magnesium 2.7 mg/dL (1.6-2.4); Phosphorus 4.5 mg/dL (2.5-4.9); Potassium 5.9 mEq/L (3.5-5.1)
[2023-07-19 05:41] LABS: Arterial Blood Carboxyhemoglob 0.9 % (0-1.5); Blood Gas Oxyhemoglobin 97.1 % (94-97); Blood O2 Saturation 99.2 % (92-98.5)
[2023-07-19] MEDS: SODIUM ZIRCONIUM CYCLOSILICATE 10 GM/PKT PO ONE (06:04)
--- NOTE | 2023-07-19 07:38 | RAD REPORT ---
EXAM DESCRIPTION: RAD - Chest Single View - 07/19/2023 5:22 am CLINICAL HISTORY: ventilator protocol Chest pain. COMPARISON: Chest Single View dated 07/18/2023; Chest Single View dated 07/18/2023 FINDINGS: Portable technique limits examination quality. Tip of the endotracheal tube is at the level of the superior aortic arch. Enteric tube descends into the upper abdomen. Mild interstitial prominence bilaterally, unchanged.The heart is mildly enlarged i n size
[2023-07-19] MEDS: SODIUM BICARB 50 MEQ/50ML VIAL IV ONE (08:16)
[2023-07-19] MEDS: FAMOTIDINE 20 MG/2 ML VIAL IV SCH (08:16)
[2023-07-19] MEDS ORDERED: ETOMIDATE 20 MG/10 ML VIAL IV ONE (08:51)
[2023-07-19] MEDS ORDERED: ROCURONIUM 50 MG/5 ML VIAL IV ONE (08:51)
[2023-07-19] MEDS ORDERED: FAMOTIDINE 20 MG/2 ML VIAL IV SCH (09:00)
[2023-07-19] MEDS: FUROSEMIDE 40 MG/4 ML VIAL IV ONE (10:40)
[2023-07-19] MEDS: NA CHLORIDE 0.9% 500 ML IV ONE (10:41)
[2023-07-19] MEDS ORDERED: ALBUTEROL 2.5 MG/3 ML NEB SOL NEB PRN (10:58)
--- NOTE | 2023-07-19 11:06 | CON ---
Date of Consultation: 07/19/2023 Reason For Consultation: Elevated BUN and creatinine, fluid management, acidosis, electrolyte imbalance. All the information has been obtained from the record and from the by bedside as the patient intubated and not responsive. History Of Present Illness: This is a 52-year-old gentleman with significant past medical history of hypertension, diabetes complicated with neuropathy, CVA with left-sided weakness. The patient came to the hospital as found on the ground by the and called EMS. The patient was found to be hypoxemic, hypotensive. The patient is intubated. The patient was found to have elevation in BUN and creatinine and hyperkalemia. For that reason, we have been consulted. The patient over the night, started on fluid resuscitation and Levophed has been discontinued early in the morning. The patient had hyperkalemia, received a couple of Lasix doses and Lokelma. Start having good urine output. Kidney function continued to decline. According to the , the patient has been taking naproxen almost on a daily basis alternating with Advil. There is no contrast exposure. Past Medical History: Includes: 1. Diabetes, complicated with neuropathy. 2. Alcoholic liver disease. 3. Hypertension. 4. CVA. 5. Chronic kidney disease, stage 3, baseline creatinine early in June 1.9 with GFR of 40. Allergies: NO KNOWN DRUGS ALLERGY. Home Medications: Include Lasix, atorvastatin, aspirin, ciprofloxacin, carvedilol, gabapentin, hydralazine, nifedipine, pantoprazole, naproxen. Past Surgical History: Include left toe amputation, eye surgery. Social History: Ex-smoker. Active alcohol. Denied drugs abuse. Review of Systems: None obtainable. Physical Examination: Vital Signs: When I saw the patient, blood pressure 138/83, pulse of 78. Chest: Clear to auscultation. Heart: S1, S2. Regular. Abdomen: Distended. Could not appreciate any organomegaly. Extremities: +2 edema. Neuro: The patient had involuntary twitching on the upper extremity. The patient is on vent. Laboratory Data: Upon admission to the hospital, sodium 140, potassium 6, bicarb 21, BUN 47, creatinine 2.6, calcium 8.9. Early in June, creatinine 1.9. GFR of 40. Today lab data: Sodium 141, potassium 5.9, bicarb 21, BUN 58, creatinine 3.1. GFR 23. Glucose 308, calcium 7.8. Phos 4.5, magnesium 2.7. Albumin of 3. ABG: The pH 7.32, CO2 of 37, O2 of 218, base excess -5. Hemoglobin 8.5, WBC 7.3, platelet 230. Chest x-ray, cardiomegaly, mild congestion. Current Medications: The patient is on include Zosyn 3.375 t.i.d., vancomycin 1.75, albuterol, haloperidol, sedation. The patient received Lasix and bicarb with Lokelma. Assessment And Plan: 1. Acute kidney injury, mostly secondary to poor perfusion. Acute tubular necrosis secondary to cardiogenic shock complicated with acidosis and hyperkalemia, nonoliguric, marginally overvolume on vent. a. I agree with p.r.n. Lasix. b. I going to go ahead and send for workup and we will follow up the patient with the presence of anemia to rule out any light chain disease. 2. Hypertension. Currently, patient is in cardiogenic shock. We will hold all blood pressure medications. 3. Acidosis with contraction alkalosis. Acidosis secondary to poor perfusion, lactic acidosis, renal failure, and shock. The patient had fluid resuscitation currently, normal volume. We will continue p.r.n. Lasix. I do not see for further bicarb. For the time being, we will monitor. 4. Hyperkalemia secondary to renal failure superimposed with possible hyperaldosteronism secondary to alcoholic liver disease. The patient received the treatment. I going to give the patient 0.5 L of normal saline bolus, then we will diurese the patient again to establish more potassium diuresis. 5. Chronic kidney disease, stage 3, secondary to diabetes nephropathy, hypertension, nephrosclerosis with acute kidney injury as above. 6. Shock, cardiogenic secondary to possible myocardial infarction, complicated with acute kidney injury secondary to poor perfusion acute tubular necrosis, complicated with hyperkalemia and possible pneumonia, status post fluid resuscitation. Currently, blood pressure stabilized of Levophed. We will continue supportive care. Follow up with Pulmonary and gis analyst. 7. Respiratory failure. Continue vent for the time being. 8. Diabetes as by primary. Time spent examining the patient [id number], reviewing data, lab and radiology, placing order, discussing the case with the patient, discussing the case with the team physician including hospitalist and nursing staff with the dialysis nurse more than 75 minutes THELMA Voice ID: [id number] Report ID: [id number] SABI
[2023-07-19 11:44] LABS: Absolute Eosinophils 0.1 K/uL (0-0.5); Absolute Lymphocytes (CBC) 1.1 K/uL (0.7-4.9); Absolute Monocytes 0.7 K/uL (0.1-1.3); Absolute Neutrophil 5.3 K/uL (1.8-8.0); Basophils % 0.5 % (0-1.3); Eosinophils % 1.7 % (0-4.4); Hematocrit 25.8 % (39.6-49.0); Hemoglobin 8.5 g/dL (13.6-17.9); Lymphocytes % 15.1 % (15.3-44.8); MCH 30.6 pg (27.0-35.0); MCHC 33.1 g/dL (32.0-36.0); MCV 92.5 fL (80-100); MPV 8.6 fL (7.6-11.3); Monocytes % 9.9 % (3.3-12.3); Neutrophils % 72.8 % (41.7-73.7); Nucleated Red Blood Cells % 0.2 % (0-0); Platelets 217 thou/uL (152-406); RBC Red Blood Cell Count 2.79 M/uL (4.33-5.43); Red Cell Distribution Width 15.1 % (12.1-15.2)
--- NOTE | 2023-07-19 11:46 | P.CNS ---
Date of Consult: 07/19/23 Reason for Consult: Respiratory failure patient on a ventilator Chief Complaint: SOB/ CP History of Present Illness: Patient is 52 years of age with a past medical history of metabolic syndrome diabetes hypertension history of stroke alcohol abuse admitted from the ER with dyspnea respiratory failure electrolyte abnormalities and was intubated currently in ICU stable Allergies No Known Allergies Allergy (Verified 07/19/23 01:50) Home Medications: Aspirin Chewable [Aspirin Chewable*] 81 mg PO DAILY 06/18/23 Atorvastatin Calcium [Lipitor] 80 mg PO BEDTIME 06/18/23 Ferrous Sulfate 325 mg PO DAILY 06/18/23 Hum Insulin NPH/Reg Insulin Hm [Humulin 70-30 Vial] 15 unit SQ DAILY AT SUPPER 06/18/23 Hum Insulin NPH/Reg Insulin Hm [Humulin 70-30 Vial] 25 units SQ BREAKFAST 06/18/23 Tamsulosin [Flomax*] 0.8 mg PO DAILY WITH BREAKFAST 06/18/23 Carvedilol [Coreg] 25 mg PO BID #60 tab 06/21/23 Furosemide 20 mg PO DAILY 30 Days #30 tab 06/21/23 Gabapentin [Neurontin*] 100 mg PO TID #90 cap 06/21/23 Hydralazine HCl 50 mg PO TID #90 tab 06/21/23 Pantoprazole [Protonix Tab] 40 mg PO BID #60 tab 06/21/23 Insulin -Regular Human [Novolin -R*] See Protocol SQ ACHS 07/19/23 Nifedipine Xl [Procardia XL*] 90 mg PO DAILY 07/19/23 - Past Medical/Surgical History Diabetic: Yes -: HTN -: DM -: CVA (May 06, 2022) -: ETOH abuse -: Left eye injury -: JOSSELYN -: Hypoxic respiratory failure -: cystitis with indwelling white -: left toe amputation -: left eye injury Psychosocial/ Personal History: Lives in [place] with his . They were here visiting family in [place] last month when Mr. Cabello had a CVA. He went to [facility] [place]. His states, "now we are stuck here" - Social History Smoking Status: Unknown if ever smoked Alcohol use: Yes CD- Drugs: No Caffeine use: No Place of Residence: Home Review of Systems is unable to be obtained Physical Examination Temp Pulse Resp BP Pulse Ox 97.8 F 85 14 147/83 H 98 07/19/23 07:00 07/19/23 11:00 07/19/23 11:00 07/19/23 11:00 07/19/23 11:00 General: Unresponsive HEENT: Atraumatic Respiratory: Clear to auscultation bilaterally Cardiovascular: Edema Gastrointestinal: Normal bowel sounds, Soft and benign Musculoskeletal: No clubbing, No swelling, No contractures Laboratory Data (last 24 hrs) 07/18/23 07/18/23 07/18/23 18:23 18:23 18:23 WBC 8.20 Hgb 8.8 L Hct 26.6 L Plt Count 229 PT 12.6 H INR 1.15 APTT 33.0 Sodium 140 Potassium 6.0 H BUN 47 H Creatinine 2.65 H Glucose 193 H Total Bilirubin 0.3 AST < 10 L ALT 26 Alkaline Phosphatase 96 - Problems (1) Respiratory failure Current Visit: Yes Status: Acute Plan: Patient is 52 years of age metabolic syndrome admitted with respiratory failure also has chronic renal failure hyperkalemia patient was hypoxic manage doing well stable plan to wean off the propofol and then possibly the ventilator chest x-ray looks clear endotracheal tube satisfactory position oxygenation is satisfactory less than 50% hemodynamically stable and to wean off the ventilator patient's cultures are pending will check serum procalcitonin level and a urinalysis seen by nephrology labs chest x-rays all reviewed last echocardiogram was done a month ago and was normal Qualifiers: Chronicity: acute
[2023-07-19 11:57] LABS: Albumin 2.9 g/dL (3.4-5.0); Albumin/Globulin Ratio 0.8 (1.1-1.8); Anion Gap 6.2 mEq/L (5.0-15.0); Bilirubin Total 0.3 mg/dL (0.2-1.0); Globulin 3.5 g/dL (2.3-3.5); Magnesium 2.6 mg/dL (1.6-2.4); Phosphorus 4.3 mg/dL (2.5-4.9); Potassium 5.2 mEq/L (3.5-5.1); Protein, Total 6.4 g/dL (6.4-8.2)
[2023-07-19 14:23] LABS: Specific Gravity 1.008 (1.005-1.030); Sqamous Epithelial None Seen /HPF (None Seen); Urine Bacteria None Seen /HPF (<20); Urine Bilirubin NEGATIVE (Negative); Urine Blood Negative (Negative); Urine Clarity Clear (Clear); Urine Color Colorless (Yellow); Urine Culture Reflex Order NOT NEEDED; Urine Glucose NEGATIVE (Negative); Urine Ketones NEGATIVE (Negative); Urine Microscopic Reflex YN ORDER UMIC; Urine Mucus Slight /HPF (None Seen); Urine Nitrite NEGATIVE (Negative); Urine Protein 1+ (Negative); Urine RBC <5 /HPF (None Seen); Urine Urobilinogen Normal (Normal); Urine WBC <5 /HPF (<5); Urine WBC Clump Rare /HPF (None Seen); Urine pH 6.5 (5.0-7.0)
[2023-07-19 14:26] LABS: UR PROTEIN 71.1 mg/dL (<11.9)
[2023-07-19 14:27] LABS: UR CREAT < 18.0 mg/dL (20-370)
--- NOTE | 2023-07-19 16:59 | P.CNS ---
Date of Consult: 07/19/23 Chief Complaint: SOB/ CP History of Present Illness: Patient with PMH of HTN, CKD presented with worsening SOB, altered mental status, hypoxic respiratory failure that required intubation, also was hypotensive and required short term pressors, patient was intubated at time of exam. Allergies No Known Allergies Allergy (Verified 07/19/23 01:50) Home Medications: Aspirin Chewable [Aspirin Chewable*] 81 mg PO DAILY 06/18/23 Atorvastatin Calcium [Lipitor] 80 mg PO BEDTIME 06/18/23 Ferrous Sulfate 325 mg PO DAILY 06/18/23 Hum Insulin NPH/Reg Insulin Hm [Humulin 70-30 Vial] 15 unit SQ DAILY AT SUPPER 06/18/23 Hum Insulin NPH/Reg Insulin Hm [Humulin 70-30 Vial] 25 units SQ BREAKFAST 06/18/23 Tamsulosin [Flomax*] 0.8 mg PO DAILY WITH BREAKFAST 06/18/23 Carvedilol [Coreg] 25 mg PO BID #60 tab 06/21/23 Furosemide 20 mg PO DAILY 30 Days #30 tab 06/21/23 Gabapentin [Neurontin*] 100 mg PO TID #90 cap 06/21/23 Hydralazine HCl 50 mg PO TID #90 tab 06/21/23 Pantoprazole [Protonix Tab] 40 mg PO BID #60 tab 06/21/23 Insulin -Regular Human [Novolin -R*] See Protocol SQ ACHS 07/19/23 Nifedipine Xl [Procardia XL*] 90 mg PO DAILY 07/19/23 - Past Medical/Surgical History Diabetic: Yes -: HTN -: DM -: CVA (May 06, 2022) -: ETOH abuse -: Left eye injury -: JOSSELYN -: Hypoxic respiratory failure -: cystitis with indwelling white -: left toe amputation -: left eye injury Psychosocial/ Personal History: Lives in [place] with his . They were here visiting family in [place] last month when Mr. Cabello had a CVA. He went to [facility] [place]. His states, "now we are stuck here" - Social History Smoking Status: Unknown if ever smoked Alcohol use: Yes CD- Drugs: No Caffeine use: No Place of Residence: Home Review of Systems is unable to be obtained Physical Examination Temp Pulse Resp BP Pulse Ox 98.6 F 98 H 18 178/89 H 98 07/19/23 16:00 05/29/24 16:51 07/19/23 16:00 07/19/23 16:51 07/19/23 16:00 General: Other (intubated on sedation) HEENT: Atraumatic Neck: Supple Respiratory: Crackles/rales Cardiovascular: Normal S1 S2, Edema Gastrointestinal: Normal bowel sounds Laboratory Data (last 24 hrs) 07/18/23 07/18/23 07/18/23 18:23 18:23 18:23 WBC 8.20 Hgb 8.8 L Hct 26.6 L Plt Count 229 PT 12.6 H INR 1.15 APTT 33.0 Sodium 140 Potassium 6.0 H BUN 47 H Creatinine 2.65 H Glucose 193 H Total Bilirubin 0.3 AST < 10 L ALT 26 Alkaline Phosphatase 96 - Problems (1) Shock Current Visit: Yes Status: Acute Plan: Moat likely non cardiac as patient had recent echo that shows normal EF and diastolic function, patient vitals are stable and Troponin are negative. Patient would benfit from IV diuresis as recent echo shows elevated RA pressure. (2) Bilateral lower extremity edema Current Visit: No Status: Acute Plan: would recommend IV diuresis as patient recent echo shows elevated RA pressure, although patient got acute worsening of his kidney function which is thought to be secondary to heavy NSAIDs use. (3) HTN (hypertension) Current Visit: No Status: Acute Plan: start patient on Coreg 12.5 mg po BID Hydralazine 25 mg po TID
[2023-07-19] MEDS: HYDRALAZINE HCL 25 MG TABLET ONE (22:09)
[2023-07-19] MEDS: HYDRALAZINE HCL 25 MG TABLET PO SCH (22:10)
[2023-07-20 05:11] LABS: Absolute Basophils 0.1 K/uL (0-0.5); Absolute Eosinophils 0.2 K/uL (0-0.5); Absolute Lymphocytes (CBC) 1.7 K/uL (0.7-4.9); Absolute Monocytes 0.8 K/uL (0.1-1.3); Absolute Neutrophil 5.1 K/uL (1.8-8.0); Basophils % 0.9 % (0-1.3); Eosinophils % 2.7 % (0-4.4); Hematocrit 27.3 % (39.6-49.0); Hemoglobin 9.3 g/dL (13.6-17.9); Lymphocytes % 21.3 % (15.3-44.8); MCH 31.2 pg (27.0-35.0); MCHC 34.1 g/dL (32.0-36.0); MCV 91.6 fL (80-100); MPV 8.7 fL (7.6-11.3); Monocytes % 9.8 % (3.3-12.3); Neutrophils % 65.3 % (41.7-73.7); Platelets 235 thou/uL (152-406); RBC Red Blood Cell Count 2.98 M/uL (4.33-5.43); Red Cell Distribution Width 14.9 % (12.1-15.2)
[2023-07-20 05:27] LABS: Percent Reticulocyte Count 1.23 % (0.4-2.05)
[2023-07-20 05:56] LABS: Albumin 3.2 g/dL (3.4-5.0); Albumin/Globulin Ratio 0.8 (1.1-1.8); Anion Gap 7.1 mEq/L (5.0-15.0); Bilirubin Total 0.4 mg/dL (0.2-1.0); Ferritin 162.1 ng/mL (26-388); Globulin 3.8 g/dL (2.3-3.5); Magnesium 2.2 mg/dL (1.6-2.4); Phosphorus 4.7 mg/dL (2.5-4.9); Potassium 4.1 mEq/L (3.5-5.1); Thyroid Stimulating Hormone 2.91 uIU/mL (0.358-3.740); Uric Acid 6.3 mg/dL (3.5-7.2)
[2023-07-20] MEDS ORDERED: IPRATROPIUM BROM 0.5MG/2.5ML NEB PRN (08:41)
[2023-07-20] MEDS: NIFEDIPINE XL 90 MG TABLET PO SCH (09:05)
[2023-07-20] MEDS: carvediloL 25 MG TAB PO SCH (09:05)
--- NOTE | 2023-07-20 09:28 | RAD REPORT ---
[facility] DES[facility] 5[facility] am CLINICAL HISTORY: ventilator protocol COMPARISON: Chest Single View dated 07/19/2023; Chest Single View dated 07/18/2023; Chest Single View dated 07/18/2023 TECHNIQUE: Portable AP view of the chest. FINDINGS: Interval extubation and removal of enteric tube. Implantable rhythm monitoring device in p lace. The lungs are clear apart from improving central streaky opacities. No pneumothorax or effusio n. Stable mild cardiomegaly. Mediastinal contours are unremarkable. IMPRESSION: Improving central perihilar streaky opacities may reflect atelectasis.
--- NOTE | 2023-07-20 09:34 | RAD REPORT ---
EXAM DESCRIPTION: US - Renal Ultrasound-Complete - 07/19/2023 11:38 pm CLINICAL HISTORY: JOSSELYN COMPARISON: Spine Lumbar Wo Con dated 06/19/2023 TECHNIQUE: Sonographic grayscale and color flow images of the kidneys and bladder were obtained. FINDINGS: Right kidney is normal in size, shape, and echotexture. The right kidney measures 13.5 cm in length. No hydronephrosis, focal mass, or echogenic calculi. The left kidney is not well visualized due to over shadowing bowel and ribs, with no carlota hydronephr osis noted. The urinary bladder is decompressed with Sidhu catheter in place. IMPRESSION: No suspicious abnormalities of the right kidney. Poor visualization of the left kidney due to over shadowing bowel and ribs. Bladder is decompressed w ith Sidhu catheter in place, which limits evaluation.
--- NOTE | 2023-07-20 09:50 | P.PN ---
Subjective Date of Service: 07/20/23 Chief Complaint: SOB/ CP Subjective: New changes (Patient is extubated, denies any major complaints except chest twinches.) Review of Systems 10-point ROS is otherwise unremarkable Physical Examination - Vital Signs Temperature: 98 F Blood Pressure: 176/92 Pulse: 89 Respirations: 15 Pulse Ox (%): 100 - Physical Exam General: Alert, In no apparent distress HEENT: Atraumatic, PERRLA, EOMI Neck: Supple, JVD not distended Respiratory: Clear to auscultation bilaterally, Normal air movement Cardiovascular: Regular rate/rhythm, Normal S1 S2 Gastrointestinal: Normal bowel sounds, No tenderness Musculoskeletal: No tenderness Integumentary: No rashes Neurological: Normal speech, Normal tone, Normal affect Lymphatics: No axilla or inguinal lymphadenopathy - Studies Medications List Reviewed: Yes Assessment And Plan - Current Problems (Diagnosis) (1) Shock Current Visit: Yes Status: Acute Plan: Moat likely non cardiac as patient had recent echo that shows normal EF and diastolic function, patient vitals are stable and Troponin are negative. Patient would benfit from IV diuresis as recent echo shows elevated RA pressure. Continue Lasix 40 mg IV TID (2) Bilateral lower extremity edema Current Visit: No Status: Acute Plan: would recommend IV diuresis as patient recent echo shows elevated RA pressure, although patient got acute worsening of his kidney function which is thought to be secondary to heavy NSAIDs use. (3) HTN (hypertension) Current Visit: No Status: Acute Plan: Coreg 25 mg po BID Nifedpine 90 mg po daily Hydralazine 50 mg po TID (4) Chest pain Current Visit: Yes Status: Acute Plan: negative cardiac enzymes, patient will need nuclear stress test once more stable.
[2023-07-20] MEDS: METOPROLOL TAR 50 MG TAB PO ONE (13:29)
[2023-07-20] MEDS: SOD FERRIC GLUC COMPLX/SUCROSE 250 MG in NA CHLORIDE 0.9% 250 ML IV SCH (14:14)
[2023-07-20] MEDS: NITROGLYCERIN 1 GM PKT TD SCH (17:24)
--- NOTE | 2023-07-20 18:16 | PN ---
Date of Progress Note: 07/20/2023 Subjective: The patient was admitted to the hospital with cardiogenic shock. The patient was on the pressor, weaned from pressor. The patient more awake today. Objective: Vital Signs: Blood pressure 187/100, pulse of 88. Chest: Faint rales, bilateral. Heart: S1, S2. Systolic murmur. Abdomen: Soft, nontender. Extremity: +2 edema. Neurologic: Alert. Left-sided weakness. Laboratory Data: Hemoglobin 9.3, sodium 141, potassium 4.1, bicarb 28, BUN 48, creatinine 2.4, trending down, calcium 9.5, phosphorus 4.7, magnesium 2.2. Iron saturation 13, ferritin 162. BNP 2000. Current Medications: The patient on, it includes: 1. Zosyn. 2. Heparin. 3. Carvedilol 25 b.i.d. 4. Hydralazine 50 t.i.d. 5. Nifedipine 90. 6. Lasix 40 t.i.d. Assessment And Plan: 1. Acute kidney injury secondary to cardiorenal, overvolume, currently. I am going to continue diuresis and we will monitor recovery. Keep holding JOHN inhibitor or ARB. 2. Hypertension, not controlled. Patient was started back on his home medication. We will add nitroglycerin and we will follow up the patient. 3. Cardiogenic shock, weaned from the pressors. Currently blood pressure on the upper side. Keep holding JOHN inhibitor. Follow up with Cardiology. We will optimize the fluid status with the diuresis. 4. Congestive heart failure with exacerbation, as above. 5. Hyperkalemia, resolved. 6. Iron-deficiency anemia. We will start the patient on IV iron, and we will follow up. Time spent examining the patient [id number], reviewing data, lab and radiology, placing order, discussing the case with the patient, discussing the case with the steamtable worker including hospitalist and nursing staff with the dialysis nurse more than 35 minutes THELMA Voice ID: [id number] Report ID: [id number] SABI
[2023-07-20] MEDS ORDERED: VANCOMYCIN 1.75 GM in NA CHLORIDE 0.9% 500 ML IVPB SCH (23:00)
[2023-07-21 04:54] LABS: Albumin 2.9 g/dL (3.4-5.0); Anion Gap 8.4 mEq/L (5.0-15.0); Phosphorus 5.7 mg/dL (2.5-4.9); Potassium 4.4 mEq/L (3.5-5.1)
[2023-07-21 07:18] LABS: Rheumatoid Factor NEG (NEG)
[2023-07-21] MEDS: ACETAMINOPHEN 325 MG TABLET ONE (08:49)
[2023-07-21] MEDS: ACETAMINOPHEN 325 MG TABLET PO ONE (08:57)
--- NOTE | 2023-07-21 17:00 | EKG ---
Test Date: 2023-07-18 Test Time: 20:23:23 Container Finisher: HIREN MEASUREMENT RESULTS: Intervals: Rate: 59 CT: 344 QRSD: 88 QT: 398 QTc: 394 [place]: P: 34 CT: 344 QRS: 75 T: 66 INTERPRETIVE STATEMENTS: Sinus bradycardia with 1st degree AV block Otherwise normal ECG Compared to ECG 07/18/2023 18:35:38 First degree AV block now present Sinus rhythm no longer present Electronically Signed On 07-21-23 16:51:22 CDT by Brandin Roldan
--- NOTE | 2023-07-21 17:02 | EKG ---
Test Date: 2023-07-18 Test Time: 18:35:38 Cutting Machine Operator Helper: MEASUREMENT RESULTS: Intervals: Rate: 64 [place]: 162 QRSD: 84 QT: 394 QTc: 406 [place]: P: 46 [place]: 162 QRS: 69 T: 55 INTERPRETIVE STATEMENTS: Normal sinus rhythm Normal ECG No previous ECG available for comparison Electronically Signed On 07-21-23 16:51:55 CDT by Brandin Roldan
[2023-07-21] MEDS: FUROSEMIDE 40 MG TABLET PO SCH (20:45)
--- NOTE | 2023-07-21 21:48 | PN ---
Date of Progress Note: 07/21/2023 Subjective: No overnight events. Blood pressure is better controlled. Creatinine today elevated to 2.8, noticed to have fluctuating creatinine between 2.6 and 3. Objective: Vital Signs: Temperature 97.9, pulse rate 85, blood pressure 146/80. General: Awake and alert, not in distress. Neck: Supple. No elevated JVD. Heart: Regular rate and rhythm. Normal S1, S2. Chest: Clear to auscultation bilaterally. No rales or wheezes. Abdomen: Soft, nontender. Extremities: No edema. Laboratory Data: Sodium 139, potassium 4.4, BUN 48, creatinine 2.9, and blood sugar 190. Phosphorus 5.7, albumin 2.9. Medications: Include Coreg, Lasix, hydralazine, metoprolol, nifedipine, and iron. Assessment And Plan: 1.Acute on chronic kidney disease. Creatinine 1.9 on admission, increased up to 3, right now down t o 2.9. Etiology of acute kidney injury possibly due to cardiorenal syndrome. We will reduce the dos e of the Lasix. Renal diet. Renal dosed medication. Avoid NSAID. 2.Edema. We will reduce diuretic as above. Low-salt diet. 3.Hypertension. Blood pressure better controlled now. The patient is on Coreg, Lasix, hydralazine, metoprolol, and nifedipine. 4.Anemia of chronic disease. Continue IV iron and monitor H and H. Thanks for allowing us to participate in patient's care. Total time spent 55 minutes. The patient can be discharged tomorrow from Nephrology point of view, i f creatinine continued to be stable. SOTO/CRUZITO Voice ID: [id number] Report ID: [id number]
[2023-07-22] MEDS ORDERED: MORPHINE 4 MG/ML SYR IV PRN (04:43)
[2023-07-22 04:45] LABS: Absolute Basophils 0.1 K/uL (0-0.5); Absolute Eosinophils 0.4 K/uL (0-0.5); Absolute Lymphocytes (CBC) 1.8 K/uL (0.7-4.9); Absolute Monocytes 0.8 K/uL (0.1-1.3); Absolute Neutrophil 4.9 K/uL (1.8-8.0); Eosinophils % 4.8 % (0-4.4); Hematocrit 24.7 % (39.6-49.0); Hemoglobin 8.3 g/dL (13.6-17.9); Lymphocytes % 22.6 % (15.3-44.8); MCH 30.4 pg (27.0-35.0); MCHC 33.7 g/dL (32.0-36.0); MCV 90.3 fL (80-100); MPV 8.2 fL (7.6-11.3); Monocytes % 10.3 % (3.3-12.3); Neutrophils % 61.3 % (41.7-73.7); Platelets 230 thou/uL (152-406); RBC Red Blood Cell Count 2.74 M/uL (4.33-5.43); Red Cell Distribution Width 14.6 % (12.1-15.2)
[2023-07-22 04:58] LABS: Albumin 2.8 g/dL (3.4-5.0); Anion Gap 6.2 mEq/L (5.0-15.0); Phosphorus 5.7 mg/dL (2.5-4.9); Potassium 4.2 mEq/L (3.5-5.1)
[2023-07-22] MEDS: MORPHINE 2 MG/ML SYR IV PRN (05:00)
[2023-07-22] MEDS: FUROSEMIDE 20 MG TABLET PO SCH (08:12)
[2023-07-22] MEDS ORDERED: FUROSEMIDE 40 MG TABLET PO SCH (09:00)
[2023-07-22] MEDS: NA CHLORIDE 0.9% 1,000 ML IV SCH (11:43)
--- NOTE | 2023-07-22 13:36 | P.PN ---
Subjective Date of Service: 07/22/23 Chief Complaint: SOB/ CP Subjective: No overnight events. Cr elevated, no edema on exam lasix reduced yesterday started on gentle hydration good UO can remove white before discharge Physcial exam General: Awake and alert, not in distress. Neck: Supple. No elevated JVD. Heart: Regular rate and rhythm. Normal S1, S2. Chest: Clear to auscultation bilaterally. No rales or wheezes. Abdomen: Soft, nontender. Extremities: No edema. Assessment And Plan: Pt with CVA and HTN a, dmitted with respiratory failurre and fluid overload, required intubation #Acute on chronic kidney disease. Creatinine 1.9 on admission, increased up to 3, pt initially had JOSSELYN due to cardiorenal , now cr elevated possibly due to overdiuresis lasix reduced gentle hydration for total of 1 liter Renal diet. Renal dosed medication. Avoid NSAID. #Edema. We will reduce diuretic as above. Low-salt diet. #.Hypertension. Blood pressure better controlled now. The patient is on Coreg, Lasix, hydralazine, metoprolol, and nifedipine. #.Anemia of chronic disease. Continue IV iron and monitor H and H. Thanks for allowing us to participate in patient's care. Total time spent 55 minutes. The patient can be discharged tomorrow from Nephrology point of view, if creatinine continued to be stable. Physical Examination - Vital Signs Temperature: 98.3 F Blood Pressure: 137/71 Pulse: 85 Respirations: 15 Pulse Ox (%): 98 - Studies Medications List Reviewed: Yes
[2023-07-22] MEDS: HYDROCODONE/APAP 10/325 TAB ONE (23:35)
[2023-07-22] MEDS: HYDROCODONE/APAP 10/325 TAB PO ONE (23:37)
[2023-07-23 06:20] LABS: Albumin 2.7 g/dL (3.4-5.0); Anion Gap 7.1 mEq/L (5.0-15.0); Potassium 4.1 mEq/L (3.5-5.1)
[2023-07-23 06:25] VITALS: BMI 30.2
[2023-07-23] MEDS: TAMSULOSIN 0.4 MG SR CAP PO ONE (09:25)
[2023-07-23] MEDS: SODIUM BICARB 325 MG TAB PO SCH (09:53)
[2023-07-23] MEDS: ISOSORBIDE MONO SR 30 MG TAB PO ONE (09:53)
[2023-07-23] MEDS: CALCIUM ACETATE 667 MG TAB PO SCH (12:02)
[2023-07-23 12:14] LABS: Complement C3 125 mg/dL (82-185)
[2023-07-23] MEDS: MAGNES/ALUMIN/SIMET 30ML UCUP PO PRN (21:35)
--- NOTE | 2023-07-23 22:48 | P.PN ---
Date of Service: 07/19/23 Subjective Patient is clinically feeling better at this time. patient with numerous comorbidities. Renal function has been stable. Patient's following commands. Will work with physical therapy and transfer patient out of bed. Hemodynamics are stable and will continue with monitoring labs and cultures. Wean off Levophed. Physical Examination - Vital Signs Reviewed - Physical Exam General: Severe distress, Obese Respiratory: Diminished, Crackles/rales, Expiratory wheezes Cardiovascular: No murmurs, Abnormal S1 S2 Gastrointestinal: W/out hepatosplenomegaly, No tenderness Musculoskeletal: No clubbing, No swelling Integumentary: No rashes Neurological: Abnormal gait, Abnormal speech; residual weakness from prior CVA Assessment and Plan - Problems (Diagnosis) (1) Shock; cardiogenic versus septic shock Current Visit: Yes Status: Acute Plan: Continue with IV antibiotic therapy and continue with pain control. Awaiting for blood culture results at this time. Continue with weaning off of Levophed at this time. (2) Acute hypoxic respiratory failure Current Visit: Yes Status: Acute Plan: Spontaneous breathing trial. Plan to possibly extubate at this time. Will repeat chest x-ray. Continue monitoring hemodynamics. (3) Acute kidney injury with hyperkalemia Current Visit: Yes Status: Acute Plan: Continue with gentle hydration. Monitor volume status closely. Monitor renal function. Nephrology consulted. (4) Acute on chronic heart failure/ heart failure with preserved ejection fraction; Current Visit: Yes Status: Acute Plan: Continue with gentle diuresing. Monitor hemodynamics and monitor renal function closely Cardiology evaluation Awaiting echocardiogram (5) HTN/hyperlipidemia Current Visit: Yes Status: Acute Plan: continue strict blood pressure control. (6) GI and DVT prophylaxis Plan to discharge in: Greater than 2 days - Advance Directives Does patient have a Living Will: YES Does patient have a Durable POA for Healthcare: - Code Status/Comfort Care Code Status: Full Code Time Spent Managing Pts Care (In Minutes): 62
--- NOTE | 2023-07-23 22:54 | P.PN ---
Date of Service: 07/21/23 Subjective Patient is doing well extubated and off of Levophed. Renal function has improved as well. Will get physical therapy to work on patient transfers. Signed paperwork for patient to try to get Medicaid approval. Physical Examination - Vital Signs Reviewed - Physical Exam General: Severe distress, Obese Respiratory: Diminished, Crackles/rales, Expiratory wheezes Cardiovascular: No murmurs, Abnormal S1 S2 Gastrointestinal: W/out hepatosplenomegaly, No tenderness Musculoskeletal: No clubbing, No swelling Integumentary: No rashes Neurological: Abnormal gait, Abnormal speech; residual weakness from prior CVA Assessment and Plan - Problems (Diagnosis) (1) Shock; cardiogenic versus septic shock Current Visit: Yes Status: Acute Plan: Continue with IV antibiotic therapy and continue with pain control. Awaiting for blood culture results - patient has been weaned off of Levophed. (2) Acute hypoxic respiratory failure Current Visit: Yes Status: Acute Plan: Patient patient was extubated. Respiratory status has improved. Continue with nebs, steroids, and antibiotics. (3) Acute kidney injury with hyperkalemia Current Visit: Yes Status: Acute Plan: Continue with gentle hydration. Monitor volume status closely. Renal function continues to improve. Nephrology consulted. (4) Acute on chronic heart failure/ heart failure with preserved ejection fraction; Current Visit: Yes Status: Acute Plan: Will review echocardiogram. Continue monitoring cardiac status. (5) HTN/hyperlipidemia Current Visit: Yes Status: Acute Plan: continue strict blood pressure control. (6) GI and DVT prophylaxis Plan to discharge in: Greater than 2 days - Advance Directives Does patient have a Living Will: YES Does patient have a Durable POA for Healthcare: - Code Status/Comfort Care Code Status: Full Code Time Spent Managing Pts Care (In Minutes): 62
--- NOTE | 2023-07-23 23:15 | P.PN ---
Date of Service: 07/22/23 Subjective Patient is doing much better. Patient denies any new complaints. Patient's is nervous about getting him home as she is patient's only caretakers. Physical Examination - Vital Signs Reviewed - Physical Exam General: AAO x 3, Obese Respiratory: Clear bilaterally, End expiratory wheezing Cardiovascular: No murmurs, Abnormal S1 S2 Gastrointestinal: Soft; nondistended, No tenderness Musculoskeletal: No clubbing, No swelling. no edema Neurological: Abnormal gait, Abnormal speech; residual weakness from prior CVA Assessment and Plan - Problems (Diagnosis) (1) Shock; cardiogenic versus septic shock Current Visit: Yes Status: Acute Plan: Patient's blood cultures have been negative. Continue with gentle IV hydration. Continue monitoring cardiac status at this time. we weaned off of Levophed and will continue to monitor antibiotic necessity. Possibly can discontinue over the next 24-48 hours as long as cultures are negative. (2) Acute hypoxic respiratory failure Current Visit: Yes Status: Acute Plan: Patient's chest x-ray has improved. Respiratory status is stable. Oxygenating well except when sleeping. However, patient is keeping his O2 sats around 100% on room air while awake. When he goes to sleepy goes into the high 80s and low 90s. Unable to get oxygen at this time pending insurance place. However, he has improved overall and may not need home oxygen as long as family is able to care for him at home. Continue with nebs, steroids, and antibiotics. (3) Acute kidney injury with hyperkalemia Current Visit: Yes Status: Acute Plan: Continue with gentle hydration. Volume status Has improved renal function significantly. Appreciate Nephrology input. (4) Acute on chronic heart failure/ heart failure with preserved ejection fraction; Current Visit: Yes Status: Acute Plan: Will review echocardiogram. Continue monitoring cardiac status. Patient with diastolic heart failure/heart failure preserved EF; continue with gentle diuretics (5) HTN/hyperlipidemia/recent acute basal ganglia infarct Current Visit: Yes Status: Acute Plan: continue strict blood pressure control. Continue with anti-platelet therapy and statin therapy. (6) GI and DVT prophylaxis Plan to discharge in: Greater than 2 days - Advance Directives Does patient have a Living Will: YES Does patient have a Durable POA for Healthcare: - Code Status/Comfort Care Code Status: Full Code Time Spent Managing Pts Care (In Minutes): 62
--- NOTE | 2023-07-23 23:24 | P.PN ---
Date of Service: 07/23/23 Subjective Plan was to discharge home today. However patient's was a little hesitant on taking him home because she was worried she would not have the assistance for patient's care. Patient is doing well overall and continuing on Flomax as patient has some bladder retention. Patient had appropriate urine output after starting Flomax today. Continue with Flomax 0.4 mg daily. Physical Examination - Vital Signs Reviewed - Physical Exam General: AAO x 3, Obese Respiratory: Clear bilaterally, End expiratory wheezing Cardiovascular: No murmurs, Abnormal S1 S2 Gastrointestinal: Soft; nondistended, No tenderness Musculoskeletal: No clubbing, No swelling. no edema Neurological: Abnormal gait, Abnormal speech; residual weakness from prior CVA Assessment and Plan - Problems (Diagnosis) (1) Shock; cardiogenic versus septic shock Current Visit: Yes Status: Acute Plan: Patient's blood cultures have been negative. Continue with gentle IV hydration; plan to Hep-Lock IV. DC telemetry. Possibly can discontinue in a.m.. (2) Acute hypoxic respiratory failure Current Visit: Yes Status: Acute Plan: Patient is oxygenating well. Continue monitor respiratory status. Echocardiogram with normal ejection fraction. Heart failure preserved EF. Gentle diuretics. (3) Acute kidney injury with hyperkalemia Current Visit: Yes Status: Acute Plan: Renal function continues to improve. Continue with gentle hydration. Appreciate Nephrology input. (4) Acute on chronic heart failure/ heart failure with preserved ejection fraction; Current Visit: Yes Status: Acute Plan: Recent echocardiogram reviewed. Cardiac status is stable. Patient with diasto lic heart failure/heart failure preserved EF; continue with gentle diuretics (5) HTN/hyperlipidemia/recent acute basal ganglia infarct Current Visit: Yes Status: Acute Plan: Continue strict blood pressure control. Continue with anti-platelet therapy and statin therapy. (6) GI and DVT prophylaxis Plan to discharge in: Greater than 2 days - Advance Directives Does patient have a Living Will: YES Does patient have a Durable POA for Healthcare: - Code Status/Comfort Care Code Status: Full Code Time Spent Managing Pts Care (In Minutes): 62
[2023-07-24] MEDS: carvediloL 12.5 MG TAB PO SCH (06:00)
[2023-07-24 06:06] LABS: Albumin 2.6 g/dL (3.4-5.0); Anion Gap 7.8 mEq/L (5.0-15.0); Potassium 4.8 mEq/L (3.5-5.1)
[2023-07-24] MEDS: HYDRALAZINE HCL 25 MG TABLET PO SCH (08:24)
[2023-07-24] MEDS: NIFEDIPINE XL 60 MG TABLET PO SCH (08:26)
--- NOTE | 2023-07-24 10:27 | P.PN ---
Subjective Date of Service: 07/24/23 Chief Complaint: SOB/ CP Subjective: No new changes, No C/O voiced, Tolerating diet, Ambulating, Improving Review of Systems 10-point ROS is otherwise unremarkable Physical Examination - Vital Signs Temperature: 98.1 F Blood Pressure: 124/65 Pulse: 87 Respirations: 16 Pulse Ox (%): 91 - Physical Exam General: Alert, In no apparent distress HEENT: Atraumatic, PERRLA, EOMI Neck: Supple, JVD not distended Respiratory: Clear to auscultation bilaterally, Normal air movement Cardiovascular: Regular rate/rhythm, Normal S1 S2 Gastrointestinal: Normal bowel sounds, No tenderness Musculoskeletal: No tenderness Integumentary: No rashes Neurological: Normal speech, Normal tone, Normal affect Lymphatics: No axilla or inguinal lymphadenopathy - Studies Microbiology Data (last 24 hrs): 07/18/23 18:35 Blood - Blood Aerobic Blood Culture - Final No growth in 5 days. 07/18/23 18:35 Blood - Blood Anaerobic Blood Culture - Final No growth in 5 days. 07/18/23 18:23 Blood - Blood Aerobic Blood Culture - Final No growth in 5 days. 07/18/23 18:23 Blood - Blood Anaerobic Blood Culture - Final No growth in 5 days. Medications List Reviewed: Yes Assessment And Plan - Current Problems (Diagnosis) (1) Shock Current Visit: Yes Status: Acute Plan: Moat likely non cardiac as patient had recent echo that shows normal EF and diastolic function, patient vitals are stable and Troponin are negative. Lasix 20 mg po BID (2) Bilateral lower extremity edema Current Visit: No Status: Acute Plan: would recommend IV diuresis as patient recent echo shows elevated RA pressure, although patient got acute worsening of his kidney function which is thought to be secondary to heavy NSAIDs use. (3) HTN (hypertension) Current Visit: No Status: Acute Plan: Coreg 12.5 mg po BID Nifedpine 60 mg po daily Hydralazine 25 mg po TID (4) Chest pain Current Visit: Yes Status: Acute Plan: negative cardiac enzymes, patient will need nuclear stress test that can be done as outpatient in clinic.
--- NOTE | 2023-07-24 14:30 | P.PN ---
Subjective Date of Service: 07/24/23 Chief Complaint: SOB/ CP Pt is resting comfortably in bed. Pt has left sided weakness. Cr is improving. No other complaints. Review of Systems General: Unremarkable Eyes: Unremarkable ENT: Unremarkable Respiratory: Unremarkable Cardiovascular: Unremarkable Gastrointestinal: Unremarkable Genitourinary: Unremarkable Musculoskeletal: Unremarkable Integumentary: Unremarkable Neurological: Weakness Lymphatics: Unremarkable Physical Examination - Vital Signs Temperature: 98.1 F Blood Pressure: 157/74 Pulse: 84 Respirations: 16 Pulse Ox (%): 92 - Physical Exam General: Alert, In no apparent distress, Oriented x3 HEENT: Atraumatic, Normocephalic, PERRLA Neck: Supple, 2+ carotid pulse no bruit, JVD not distended Respiratory: Clear to auscultation bilaterally, Normal air movement Cardiovascular: No edema, Normal pulses, Regular rate/rhythm, Normal S1 S2 Capillary refill: <2 Seconds Gastrointestinal: Normal bowel sounds, Soft and benign, Non-distended Musculoskeletal: No clubbing, No swelling Integumentary: No rashes, No breakdown, No significant lesion, No tenderness/swelling Neurological: Normal speech, Normal strength at 5/5 x4 extr, Normal tone, Sensa tion intact Lymphatics: No axilla or inguinal lymphadenopathy - Studies Microbiology Data (last 24 hrs): 07/18/23 18:35 Blood - Blood Aerobic Blood Culture - Final No growth in 5 days. 07/18/23 18:35 Blood - Blood Anaerobic Blood Culture - Final No growth in 5 days. 07/18/23 18:23 Blood - Blood Aerobic Blood Culture - Final No growth in 5 days. 07/18/23 18:23 Blood - Blood Anaerobic Blood Culture - Final No growth in 5 days. Medications List Reviewed: Yes Assessment And Plan - Plan Shock, Likely cardiogenic or septic: Will continue IVF and monitor BP. Blood cx is negative. Acute resp failure with hypoxia: Improved. Will continue to monitor resp status. Echo shows normal ejection. JOSSELYN with hyperkalemia: Cr is 2.74. K is 4.8. Will continue IVF and monitor renal function. Nephrology. Acute on chronic heart failure / heart failure with preserved Ejection: Echo noted. Will continue gentle diuretic. HLD: Statin Htn: Continue home med Recent basal ganglia infarct: Will continue aspirin and statin GI ppx: protonix DVT ppx: SCD Dispo: pending hospital course.
--- NOTE | 2023-07-25 01:49 | PN ---
Date of Progress Note: 07/24/2023 Chief Complaint: Acute kidney injury. Review of Systems: The patient denies chest pain, palpitation. Physical Examination: Lungs: Clear to auscultation bilaterally. Heart: S1, S2. Abdomen: Soft. Extremities: No edema. Impression And Plan: 1.Acute kidney injury. Creatinine level was 1.9 on admission and is elevated up to 3. The patient initially had acute kidney injury due to cardiorenal syndrome. Currently, serum creatinine level is elevated due to diuretics and Lasix dose was reviewed. Continue gentle hydration. Monitor electroly fantasma. Avoid exposure to contrast. Avoid nonsteroidal anti-inflammatory medication. 2.Edema. Edema is controlled. Dose of the diuretic is adjusted. 3.Hypertension. Continue Coreg, hydralazine, nifedipine, and metoprolol. 4.Anemia of chronic disease. Continue IV iron. Monitor H and H. EB/MODL Voice ID: [id number] Report ID: [id number]
[2023-07-25 09:59] LABS: Absolute Basophils 0.1 K/uL (0-0.5); Absolute Eosinophils 0.2 K/uL (0-0.5); Absolute Lymphocytes (CBC) 1.5 K/uL (0.7-4.9); Absolute Monocytes 0.5 K/uL (0.1-1.3); Absolute Neutrophil 4.7 K/uL (1.8-8.0); Basophils % 0.7 % (0-1.3); Eosinophils % 2.9 % (0-4.4); Hematocrit 24.7 % (39.6-49.0); Hemoglobin 8.3 g/dL (13.6-17.9); Lymphocytes % 21.7 % (15.3-44.8); MCH 30.7 pg (27.0-35.0); MCHC 33.8 g/dL (32.0-36.0); MCV 90.9 fL (80-100); MPV 7.6 fL (7.6-11.3); Monocytes % 7.7 % (3.3-12.3); Nucleated Red Blood Cells % 0.1 % (0-0); Platelets 228 thou/uL (152-406); RBC Red Blood Cell Count 2.72 M/uL (4.33-5.43); Red Cell Distribution Width 14.3 % (12.1-15.2)
[2023-07-25 10:13] LABS: Anion Gap 6.2 mEq/L (5.0-15.0); Potassium 5.2 mEq/L (3.5-5.1)
[2023-07-25] MEDS: SOD FERRIC GLUC COMPLX/SUCROSE 250 MG in NA CHLORIDE 0.9% 250 ML IV SCH (10:48)
[2023-07-25] MEDS: D5 0.9 NS 1,000 ML IV SCH (10:49)
--- NOTE | 2023-07-25 11:04 | RAD REPORT ---
EXAM DESCRIPTION: RADChest Single View07/25/2023 10:10 am CLINICAL HISTORY: sob COMPARISON: Chest Single View dated 07/20/2023; Chest Single View dated 07/19/2023; Chest Single View dated 07/18/2023; Chest Single View dated 07/18/2023 TECHNIQUE: Portable AP view of the chest. FINDINGS: Decreased inspiratory effort limits evaluation. Central interstitial prominence. No pneum othorax or effusion. Stable cardiomegaly. Implantable rhythm monitoring device again seen. Mediastina l contours are otherwise unremarkable. IMPRESSION: Central interstitial prominence which may reflect mild central congestion/CHF.
[2023-07-25 12:53] LABS: Abnormal Protein Band 1 REPORT; Albumin, (SPE) 3.5 g/dL (3.8-4.8); Alpha-1-Globulins 0.3 g/dL (0.2-0.3); Alpha-2-Globulins 0.9 g/dL (0.5-0.9); Beta 1 Globulin 0.4 g/dL (0.4-0.6); Gamma Globulins 1.1 g/dL (0.8-1.7); INTERPRETATION REPORT; Total Protein 6.7 g/dL (6.1-8.1)
--- NOTE | 2023-07-25 13:53 | PN ---
Date of Progress Note: 07/25/2023 Subjective: The patient was admitted to the hospital with cardiorenal syndrome, acute kidney injury. The patient was diuresed. Patient feeling weak, poor intake. Kidney function improved in the begi nning, currently worsening. Physical Examination: Vital Signs: When I saw the patient, blood pressure 156/80, pulse of 79, afebrile. The patient had good urine output of 1900, negative of 600. Chest: Clear to auscultation. Heart: S1, S2 regular. Abdomen: Soft, nontender. Extremities: No edema. Neuro: Alert, no focality. The patient does mowing. Laboratory Data: WBC 7, hemoglobin 8.3, platelets 228. Chemistry still pending. Sodium 136, potass ium 4.8, bicarb 29, BUN 52, creatinine 2.7, GFR 27, calcium 8.4, phosphor of 4, albumin 2.6. Serolog y still pending. Complement within normal limit. Current Medications: The patient is on include Lasix 40 b.i.d., calcium phosphate, nifedipine, hydra lazine 25 t.i.d., carvedilol 12.5 b.i.d., and PhosLo. Imaging Studies: Chest x-ray done today showing cardiomegaly with congestion compared to the chest x -ray before. Congestion has been improved. Renal ultrasound, normal size kidney, 13.5, left was not visualized. PC ratio 3.9. Assessment And Plan: 1.Acute kidney injury, possible secondary to overdiuresis, normal-sized kidney with nephrotic range proteinuria. To me, it looks that we over diuresed the patient. I am going to go ahead and hold the Lasix today. I will start the patient on gentle hydration with D5 at 50 per hour and we will follow up the patient. Discontinue Lasix. 2.Hypertension, controlled, not optimal. We will hold the Lasix for today. I am going to go ahead and increase carvedilol to 25 mg b.i.d. and we will follow up the patient. 3.Nephrotic range proteinuria, mostly secondary to diabetes. Serology still pending yet complement within normal limit. Serum protein electrophoresis is still pending. We will follow up. 4.Hyponatremia secondary to depletional. We will start hydration. Hold the Lasix. 5.Congestive heart failure with exacerbation, currently the patient is on room air. I do not see th e need for Lasix, especially with worsening kidney function. We will follow up. 6.Iron deficiency anemia. Start the patient on IV iron. 7.Worsening overall clinical condition. I am going to repeat urinalysis. Chest x-ray did not show any infiltration. We will follow up with primary. 8.Diabetes as by primary. MEG/CRUZITO Voice ID: [id number] Report ID: [id number]
[2023-07-25] MEDS: MORPHINE 4 MG/ML SYR IV PRN (14:03)
--- NOTE | 2023-07-25 14:28 | P.PN ---
Subjective Date of Service: 07/25/23 Chief Complaint: SOB/ CP Pt is resting comfortably in bed. Pt appears weak and less interactive today. Will f/u urinalysis. No other complaints. Review of Systems General: Unremarkable Eyes: Unremarkable ENT: Unremarkable Respiratory: Unremarkable Cardiovascular: Unremarkable Gastrointestinal: Unremarkable Genitourinary: Unremarkable Musculoskeletal: Unremarkable Integumentary: Unremarkable Neurological: Unremarkable Lymphatics: Unremarkable Physical Examination - Vital Signs Temperature: 97.8 F Blood Pressure: 130/66 Pulse: 87 Respirations: 20 Pulse Ox (%): 95 - Physical Exam General: Alert, In no apparent distress, Oriented x3 HEENT: Atraumatic, Normocephalic, PERRLA Neck: Supple, 2+ carotid pulse no bruit, JVD not distended Respiratory: Clear to auscultation bilaterally, Normal air movement Cardiovascular: No edema, Normal pulses, Regular rate/rhythm, Normal S1 S2 Capillary refill: <2 Seconds Gastrointestinal: Normal bowel sounds, Soft and benign, Non-distended Musculoskeletal: No clubbing, No swelling Integumentary: No rashes, No breakdown, No significant lesion Neurological: Normal speech, Normal strength at 5/5 x4 extr, Normal tone, Sensa tion intact Lymphatics: No axilla or inguinal lymphadenopathy - Studies Medications List Reviewed: Yes Assessment And Plan - Plan Shock, Likely cardiogenic or septic: Will continue IVF and monitor BP. Blood cx is negative. Acute resp failure with hypoxia: Improved. Will continue to monitor resp status. Echo shows normal ejection. JOSSELYN with hyperkalemia: Cr is 2.32<- 2.74. K is 4.8. Will continue IVF and monitor renal function. Nephrology. Acute on chronic heart failure / heart failure with preserved Ejection: Echo noted. Will continue gentle diuretic. Hyperkalemia: K is 5.2. Likely due to JOSSELYN. Will give lokelma. HLD: Statin Htn: Continue home med Recent basal ganglia infarct: Will continue aspirin and statin GI ppx: protonix DVT ppx: SCD Dispo: pending hospital course. will f/u UA.
[2023-07-25] MEDS: SODIUM ZIRCONIUM CYCLOSILICATE 10 GM/PKT PO ONE (16:24)
[2023-07-25 16:44] LABS: Specific Gravity 1.012 (1.005-1.030); Sqamous Epithelial None Seen /HPF (None Seen); Urine Bacteria None Seen /HPF (<20); Urine Bilirubin NEGATIVE (Negative); Urine Blood Negative (Negative); Urine Clarity Clear (Clear); Urine Color Light-Yellow (Yellow); Urine Culture Reflex Order NOT NEEDED; Urine Glucose TRACE (Negative); Urine Ketones NEGATIVE (Negative); Urine Microscopic Reflex YN ORDER UMIC; Urine Mucus Slight /HPF (None Seen); Urine Nitrite NEGATIVE (Negative); Urine Protein 3+ (Negative); Urine RBC <5 /HPF (None Seen); Urine Urobilinogen Normal (Normal); Urine WBC <5 /HPF (<5)
[2023-07-25 16:59] LABS: UR PROTEIN 205.3 mg/dL (<11.9); Urine Protein/Creatinine Ratio 2.57 ratio (<0.15)
[2023-07-25] MEDS: carvediloL 25 MG TAB PO SCH (17:41)
[2023-07-25 19:13] LABS: C-ANCA Anti-Proteinase 3 <1.0 AI (<1.0); P-ANCA Anti-Myeloperoxidase Ab <1.0 AI (<1.0)
[2023-07-26 07:03] LABS: Absolute Basophils 0.1 K/uL (0-0.5); Absolute Eosinophils 0.2 K/uL (0-0.5); Absolute Lymphocytes (CBC) 1.6 K/uL (0.7-4.9); Absolute Monocytes 0.6 K/uL (0.1-1.3); Absolute Neutrophil 4.5 K/uL (1.8-8.0); Basophils % 0.8 % (0-1.3); Eosinophils % 2.9 % (0-4.4); Hemoglobin 8.5 g/dL (13.6-17.9); Lymphocytes % 23.3 % (15.3-44.8); MCH 30.1 pg (27.0-35.0); MCHC 32.8 g/dL (32.0-36.0); MCV 91.7 fL (80-100); MPV 8.2 fL (7.6-11.3); Monocytes % 9.2 % (3.3-12.3); Neutrophils % 63.8 % (41.7-73.7); Platelets 241 thou/uL (152-406); RBC Red Blood Cell Count 2.83 M/uL (4.33-5.43); Red Cell Distribution Width 14.6 % (12.1-15.2)
[2023-07-26 07:32] LABS: Albumin 2.6 g/dL (3.4-5.0); Anion Gap 7.6 mEq/L (5.0-15.0); Magnesium 2.6 mg/dL (1.6-2.4); Phosphorus 3.8 mg/dL (2.5-4.9); Potassium 5.6 mEq/L (3.5-5.1); Uric Acid 7.1 mg/dL (3.5-7.2)
[2023-07-26 09:44] LABS: Anti-Double Strand DNA Antibod <1 IU/mL (<=4)
[2023-07-26] MEDS: D5 0.9 NS 1,000 ML IV SCH (11:29)
[2023-07-26] MEDS: FUROSEMIDE 40 MG/4 ML VIAL IV ONE (11:59)
[2023-07-26 12:32] LABS: Specific Gravity 1.009 (1.005-1.030); Sqamous Epithelial <5 /HPF (None Seen); Urine Bacteria <20 /HPF (<20); Urine Bilirubin NEGATIVE (Negative); Urine Blood Negative (Negative); Urine Clarity Clear (Clear); Urine Color Colorless (Yellow); Urine Culture Reflex Order NOT NEEDED; Urine Glucose TRACE (Negative); Urine Ketones NEGATIVE (Negative); Urine Microscopic Reflex YN ORDER UMIC; Urine Nitrite NEGATIVE (Negative); Urine Protein 2+ (Negative); Urine RBC <5 /HPF (None Seen); Urine Urobilinogen Normal (Normal); Urine WBC <5 /HPF (<5); Urine pH 7.5 (5.0-7.0)
--- NOTE | 2023-07-26 14:24 | P.PN ---
Subjective Date of Service: 07/26/23 Chief Complaint: SOB/ CP Pt is resting comfortably in bed. Pt appears weak and less interactive today. Urinalysis is negative for UTI. K is 5.6. No other complaints. Review of Systems General: Unremarkable Eyes: Unremarkable ENT: Unremarkable Respiratory: Unremarkable Cardiovascular: Unremarkable Gastrointestinal: Unremarkable Genitourinary: Unremarkable Musculoskeletal: Unremarkable Integumentary: Unremarkable Neurological: Unremarkable Lymphatics: Unremarkable Physical Examination - Vital Signs Temperature: 97.2 F Blood Pressure: 171/84 Pulse: 84 Respirations: 18 Pulse Ox (%): 96 - Physical Exam General: Alert, In no apparent distress, Oriented x3 HEENT: Atraumatic, Normocephalic, PERRLA Neck: Supple, 2+ carotid pulse no bruit, JVD not distended Respiratory: Clear to auscultation bilaterally, Normal air movement Cardiovascular: No edema, Normal pulses, Regular rate/rhythm, Normal S1 S2 Capillary refill: <2 Seconds Gastrointestinal: Normal bowel sounds, Soft and benign, Non-distended Musculoskeletal: No clubbing, No swelling Integumentary: No rashes, No breakdown, No significant lesion Neurological: Normal speech, Normal strength at 5/5 x4 extr, Normal tone Lymphatics: No axilla or inguinal lymphadenopathy - Studies Medications List Reviewed: Yes Assessment And Plan - Plan Shock, Likely cardiogenic or septic: Will continue IVF and monitor BP. Blood cx is negative. Acute resp failure with hypoxia: Improved. Will continue to monitor resp status. Echo shows normal ejection. JOSSELYN with hyperkalemia: Cr is 2.32<- 2.74. K is 4.8. Will continue IVF and monitor renal function. Nephrology. Acute on chronic heart failure / heart failure with preserved Ejection: Echo noted. Will continue gentle diuretic. Hyperkalemia: K is 5.6. Likely due to JOSSELYN. Will give lokelma. HLD: Statin Htn: Continue home med Recent basal ganglia infarct: Will continue aspirin and statin GI ppx: protonix DVT ppx: SCD Dispo: pending hospital course. will f/u UA.
[2023-07-26] MEDS: SODIUM ZIRCONIUM CYCLOSILICATE 10 GM/PKT PO ONE (15:03)
--- NOTE | 2023-07-26 16:35 | PN ---
Date of Progress Note: 07/26/2023 Subjective: The patient was admitted with acute kidney injury secondary to cardiorenal. The patient 's kidney function improved, then bounced back. Yesterday, we held diuresis. Started the patient on gentle hydration. The patient feeling better, complaining from right flank pain. Objective: Vital Signs: Blood pressure 168/82, pulse of 84, afebrile. Chest: Clear to auscultation. Heart: S1, S2. Systolic murmur. Abdomen: Soft. Mild tenderness on the right side. No guarding or rebound. Extremity: Trace edema. Neuro: Left-sided weakness. Laboratory Data: WBC 7, hemoglobin 8.2, sodium 137, potassium 5.6, bicarb 25, BUN 39, creatinine 2. GFR of 37, improving. Calcium 8.7, phosphorus 3.8, magnesium 2.6, albumin 2.6. Current Medications: The patient 25 mg b.i.d., hydralazine 25 t.i.d., nifedipine 60, calc ium phosphate, sodium bicarb 650 b.i.d., and Lokelma. Assessment And Plan: 1.Acute kidney injury secondary to poor perfusion ATN, overdiuresis. Currently, patient looked to m e started to be normal volume. I am going to go ahead and increase IV fluid to 100 and we will give the patient a single dose of Lasix to overcome the hyperkalemia and we will follow up the patient. 2.Hypertension, controlled, optimal. Currently, we just increased carvedilol. We will follow up re sponse. 3.Congestive heart failure with exacerbation, currently patient on the normal volume side. We will keep holding diuresis. Increase IV fluid. 4.Hyperkalemia. We will give Lasix. Patient received Lokelma yesterday. We will follow up. 5.Iron-deficiency anemia. Continue IV iron. 6.Acidosis secondary to renal failure, recovered, resolved. I am going to go ahead and decrease sod ium bicarb to b.i.d. and we will follow up. Plan to taper after resolve of the hyperkalemia. 7.Abdominal pain. I am going to repeat UA. Time spent examining the patient [id number], reviewing data, lab and radiology, placing order, disc ussing the case with the patient and by bedside, discussing the case with the prepared foods service team member includ ing hospitalist and nursing staff more than 35 minutes. THELMA Voice ID: [id number] Report ID: [id number]
[2023-07-26] MEDS: LABETALOL 20 MG/4ML SYRINGE IV ONE ×2 (18:04→19:29)
[2023-07-27 06:40] LABS: Albumin 2.7 g/dL (3.4-5.0); Anion Gap 8.5 mEq/L (5.0-15.0); Magnesium 2.3 mg/dL (1.6-2.4); Phosphorus 4.1 mg/dL (2.5-4.9); Potassium 4.5 mEq/L (3.5-5.1)
[2023-07-27 07:11] LABS: Absolute Eosinophils 0.4 K/uL (0-0.5); Absolute Lymphocytes (CBC) 1.8 K/uL (0.7-4.9); Absolute Monocytes 0.6 K/uL (0.1-1.3); Absolute Neutrophil 4.1 K/uL (1.8-8.0); Basophils % 0.5 % (0-1.3); Eosinophils % 5.2 % (0-4.4); Hematocrit 25.9 % (39.6-49.0); Hemoglobin 8.9 g/dL (13.6-17.9); Lymphocytes % 25.7 % (15.3-44.8); MCH 31.3 pg (27.0-35.0); MCHC 34.3 g/dL (32.0-36.0); MCV 91.2 fL (80-100); MPV 8.3 fL (7.6-11.3); Monocytes % 9.1 % (3.3-12.3); Neutrophils % 59.5 % (41.7-73.7); Nucleated Red Blood Cells % 0.1 % (0-0); Platelets 257 thou/uL (152-406); RBC Red Blood Cell Count 2.84 M/uL (4.33-5.43); Red Cell Distribution Width 14.6 % (12.1-15.2)
--- NOTE | 2023-07-27 11:17 | P.DS ---
Admission Date: 07/18/23 Discharge Date: 07/27/23 Disposition: ROUTINE DISCHARGE Discharge Condition: GOOD Reason for Admission: SOB/ CP Brief History of Present Illness: 52 yrs old Male with past medical history of hypertension, diabetes, CVA with left-sided weakness and history of cystitis and history of alcohol abuse came to ER with shortness of breath. Patient also complains of chest discomfort. Associated with cough with no expectoration. Denies any fever or chills. No sick contacts. Had a recent stroke. Patient also complains of generalized weakness. At the time of interview patient complains of chest dis comfort and had become bradycardic and hypotensive. Patient noted to have hyperkalemia and antihyperkalemia measures were given. Patient became hypoxic and hypotensive and was started on IV fluids and albumin without much changes and had to be started on Levophed and for airway protection and for respiratory distress patient was intubated by the ER physician. Patient is being admitted to the ICU for further management Hospital Course: Pt is a 52yo male with past medical history of hypertension, diabetes, CVA with left-sided weakness, cystitis, and alcohol abuse came to ER with cough, shortness of breath, chest discomfort, and generalized weakness. At the time of interview, patient complained of chest discomfort and had become hypoxic, bradycardic and hypotensive. Lab studies showed hyperkalemia and antihyperkalemia measures were given. He was intubated and we started pressor before admitting him in the ICU for acute resp failure with hypoxia and shock (septic or cardiogenic shock). His BP improved and pt was transferred out of the ICU. We gave IVF a nd renal function improved. We monitored electrolytes and continued home meds for other chronic medical problems. Vital Signs/Physical Exam: Temp Pulse Resp BP Pulse Ox 97.7 F 84 17 150/78 H 96 07/27/23 08:00 07/27/23 09:24 07/27/23 08:00 07/27/23 09:24 07/27/23 08:00 Laboratory Data at Discharge: WBC 7.00 thou/uL (4.3-10.9) 07/27/23 06:00 Hgb 8.9 g/dL (13.6-17.9) L 07/27/23 06:00 Hct 25.9 % (39.6-49.0) L 07/27/23 06:00 Plt Count 257 thou/uL (152-406) 07/27/23 06:00 PT 12.6 SECONDS (9.5-12.5) H 07/18/23 18:23 INR 1.15 07/18/23 18:23 APTT 33.0 SECONDS (24.3-36.9) 07/18/23 18:23 Sodium 137 mEq/L (136-145) 07/27/23 06:00 Potassium 4.5 mEq/L (3.5-5.1) D 07/27/23 06:00 BUN 33 mg/dL (7-18) H 07/27/23 06:00 Creatinine 1.97 mg/dL (0.70-1.30) H 07/27/23 06:00 Glucose 178 mg/dL (74-106) H 07/27/23 06:00 Uric Acid 7.1 mg/dL (3.5-7.2) 07/26/23 06:31 Phosphorus 4.1 mg/dL (2.5-4.9) 07/27/23 06:00 Magnesium 2.3 mg/dL (1.6-2.4) 07/27/23 06:00 Total Bilirubin 0.4 mg/dL (0.2-1.0) 07/20/23 04:21 AST 30 U/L (15-37) 07/20/23 04:21 ALT 112 U/L (16-61) H 07/20/23 04:21 Alkaline Phosphatase 96 U/L (45-117) 07/20/23 04:21 Home Medications: Aspirin Chewable [Aspirin Chewable*] 81 mg PO DAILY 06/18/23 Atorvastatin Calcium [Lipitor] 80 mg PO BEDTIME 06/18/23 Ferrous Sulfate 325 mg PO DAILY 06/18/23 Hum Insulin NPH/Reg Insulin Hm [Humulin 70-30 Vial] 15 unit SQ DAILY AT SUPPER 06/18/23 Hum Insulin NPH/Reg Insulin Hm [Humulin 70-30 Vial] 25 units SQ BREAKFAST 06/18/23 Tamsulosin [Flomax*] 0.8 mg PO DAILY WITH BREAKFAST 06/18/23 Carvedilol [Coreg] 25 mg PO BID #60 tab 06/21/23 Furosemide 20 mg PO DAILY 30 Days #30 tab 06/21/23 Gabapentin [Neurontin*] 100 mg PO TID #90 cap 06/21/23 Hydralazine HCl 50 mg PO TID #90 tab 06/21/23 Pantoprazole [Protonix Tab*] 40 mg PO BID #60 tab 06/21/23 Insulin -Regular Human [Novolin -R*] See Protocol SQ ACHS 07/19/23 Nifedipine Xl [Procardia XL*] 90 mg PO DAILY 07/19/23 Calcium Acetate [Phoslo] 1 cap PO TIDWM #90 cap 07/22/23 Furosemide [Lasix*] 20 mg PO BID #60 tab 07/22/23 Potassium Chloride 10 meq PO DAILY #30 tab 07/22/23 New Medications: Furosemide [Lasix*] 20 mg PO BID #60 tab Calcium Acetate [Phoslo] 1 cap PO TIDWM #90 cap Potassium Chloride 10 meq PO DAILY #30 tab Physician Discharge Instructions: -OK to DC IV and DC home -Follow-up with PCP in 1 to 2 weeks -Please call Dr. Mandujano at [phone] if any questions regarding hospital stay -Please call nursing station at [phone] if any nursing or medication questions -Return to the emergency room if symptoms worsen - Diet: Renal Activity: Fall precautions Followup: NONE,NONE [Primary Care Provider] -
[2023-07-27 11:55] VITALS: O2SAT 96
[2023-07-27 13:56] VITALS: BP 105/64; TEMP 97.4
--- NOTE | 2023-07-27 17:38 | PN ---
Date of Progress Note: 07/27/2023 Subjective: The patient was admitted to the hospital with acute kidney injury secondary to cardioren al. The patient was diuresed. Kidney function worsened. For that reason, we backed up on the diure sis. Started the patient on gentle hydration. Kidney function improved. The patient feeling much b chichi today. Objective: Vital Signs: When I saw the patient, blood pressure 150/78, pulse of 84, afebrile. Chest: Clear to auscultation. Heart: S1, S2. Systolic murmur. Abdomen: Soft, nontender. Extremity: No edema. Neuro: Alert. Weakness on the left side. Laboratory Data: WBC 7, hemoglobin 8.9, sodium 137, potassium 4.5, bicarb 26, BUN 33, creatinine 1.9 . GFR of 40. Calcium 8.6, phosphorus 4.1, magnesium 2.3. Current Medications: The patient on, it includes IV iron, carvedilol 25 b.i.d., hydralazine 25 t.i.d ., nifedipine 60, Lasix received yesterday, sodium bicarb 650 b.i.d. Assessment And Plan: 1.Acute kidney injury secondary to cardiorenal, poor perfusion ATN, overdiuresis. Currently, back t o normal volume. I am going to go ahead and discontinue IV fluid. 2.Congestive heart failure with exacerbation, currently normal volume. The patient upon discharge t o resume Lasix 20 daily. 3.Hyperkalemia, status post treatment, resolved. 4.Iron-deficiency anemia. Continue IV iron. 5.Acidosis secondary to renal failure. Continue oral bicarb. 6.Abdominal pain secondary to gastroenteritis, recovered, resolved. The patient cleared from the Renal standpoint for discharge planning to follow up in the office in 2 to 3 weeks. THELMA Voice ID: [id number] Report ID: [id number]
[2023-07-27 21:37] LABS: Anti-Nuclear Antibody Screen Positive (Negative)
[2023-07-27 22:05] LABS: Anti-Nuclear Antibody Pattern REPORT; Anti-Nuclear Antibody Titer 1:40 (Negative)
== END 2023-07-27 15:25 | disposition home or self-care (01) | DRG 871 ==
LOC: ER 17:47 → 3RD-ICU 20:37 → 4TH 07-23 13:53
PROVIDERS: ADMIT Family Medicine; ATTEND Hospitalist
PROC: 5A1935Z Respiratory Ventilation, Less than 24 Consecutive Hours (ICD-10-PCS; principal; 2023-07-18)
PROC: 0BH17EZ Insertion of Endotracheal Airway into Trachea, Via Natural or Artificial Opening (ICD-10-PCS; 2023-07-18)
PROC: 4A033R1 Measurement of Arterial Saturation, Peripheral, Percutaneous Approach (ICD-10-PCS; 2023-07-18)
PROC: 3E033XZ Introduction of Vasopressor into Peripheral Vein, Percutaneous Approach (ICD-10-PCS; 2023-07-18)
PROC: 0DH67UZ Insertion of Feeding Device into Stomach, Via Natural or Artificial Opening (ICD-10-PCS; 2023-07-18)
PROC: 0T9B70Z Drainage of Bladder with Drainage Device, Via Natural or Artificial Opening (ICD-10-PCS; 2023-07-22)
DX: A41.9 Sepsis, unspecified organism (principal); I50.33 Acute on chronic diastolic (congestive) heart failure; J96.01 Acute respiratory failure with hypoxia; J18.9 Pneumonia, unspecified organism; N17.0 Acute kidney failure with tubular necrosis; R57.0 Cardiogenic shock; R65.21 Severe sepsis with septic shock; I69.354 Hemiplegia and hemiparesis following cerebral infarction affecting left non-dominant side; E87.20 Acidosis, unspecified; E87.3 Alkalosis; E87.1 Hypo-osmolality and hyponatremia; I13.0 Hypertensive heart and chronic kidney disease with heart failure and stage 1 through stage 4 chronic kidney disease, or unspecified chronic kidney disease; N18.30 Chronic kidney disease, stage 3 unspecified; E11.22 Type 2 diabetes mellitus with diabetic chronic kidney disease; E11.40 Type 2 diabetes mellitus with diabetic neuropathy, unspecified; D63.1 Anemia in chronic kidney disease; D50.9 Iron deficiency anemia, unspecified; E87.5 Hyperkalemia; E78.5 Hyperlipidemia, unspecified; K52.9 Noninfective gastroenteritis and colitis, unspecified; K70.9 Alcoholic liver disease, unspecified; Z78.1 Physical restraint status; Z79.4 Long term (current) use of insulin; Z79.82 Long term (current) use of aspirin; Z79.02 Long term (current) use of antithrombotics/antiplatelets; Z79.899 Other long term (current) drug therapy; Z89.422 Acquired absence of other left toe(s); Z87.891 Personal history of nicotine dependence
CPT/HCPCS: 36415; 36600; 71045; 76770; 80048; 80053; 80069; 81001; 82533; 82550; 82570; 82607; 82728; 82805; 82947; 83036; 83520; 83540; 83605; 83735; 83880; 83970; 84100; 84145; 84156; 84165; 84443; 84466; 84484; 84550; 85025; 85044; 85610; 85730; 86021; 86038; 86160; 86225; 86430; 86803; 87040; 87070; 93005; 94002; 94003; 94640; 97110; 97112; 97161; 97530; 99285; J0612; J0696; J1644; J1940; J2270; J2543; J2704; J2916; J7030; J7040; J7042; J7050; J7644; P9047

== ENCOUNTER 2023-08-25 23:24 | Observation (INO) | payer OTHER, SELFPAY ==
--- OUTSIDE RECORDS SUMMARY | 2023-08-25 23:28 | XMS REPORT | Continuity of Care Document ---
Author Name Unknown Address [address] [facility] [address] [place] [address] [facility] thconnect Address 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 Name Role Phone No MD, Pcp Primary Care Physician Unavailab TERESA Fraire Attending Clinician Unavailable Irwin Banks Attending Clinician IRWIN BANKS Attending Clinician Pema CECIL Lazar Attending Clinician UnavailJOSE ALEJANDRO Hicks Attending Clinician Unavailable DANIEL GRAMAJO Attending Clinician Unavail able MAURA RIGGS Attending Clinician Unavailab MOISÉS Luz Attending Clinician Unavailab Marina Mcwilliams Admitting Clinician MARINA DONG Admitting Clinician DANIEL Hernandez Admitting Clinician Unavail able MAURA RIGGS Admitting Clinician Unavailab BRUNO Alexandra Admitting Clinician Un available CECIL LOVE Admitting Clinician Unavailabl e Problems Condition Name Condition Details Condition Category Status Onset Date Resolution Date Last Treatment Date Treating Clinician Comments Source STROKE STROKE Active 06/28/2023 [facility] Diagnosis Active 06-27 00:00: 00 2023-06-28 20:51:00 Candida KIM BILLING 3341 JULIO BILLING 3341 Active 06/28/2023 [facility] Diagnosis Active 06-27 00:00: 00 2023-06-29 07:19:00 Candida Armenta ACUTE ISCHEMIC STRK ACUTE ISCHEMIC STRK Active 06/28/2023 [facility] Diagnosis Active 06-27 00:00: 00 2023-06-29 07:17:00 Candida Armenta Diabetes mellitus (disorder) Diabetes mellitus (disorder) Active Problem 07/07/2023 [facility] Problem Active 2023-07-07 06:39:09 Candida Armenta Essential hypertensi on (disorder) Essential hypertensi on (disorder) Active Problem 07/07/2023 [facility] Problem Active 2023-07-07 06:39:09 Candida Armenta Simple obesity (disorder) Simple obesity (disorder) Active Problem 07/07/2023 [facility] Problem Active 2023-07-07 06:39:09 Candida Armenta CEREBRAL INFARCTION , UNSPECIFIE D CEREBRAL INFARCTION , UNSPECIFIE D Active [facility] Diagnosis Active 2023-06-29 07:17:00 Candida Armenta Social History Social Habit Start Date Stop Date Quantity Comments Source Sexual orientation [facility] Tobacco use and exposure 2023-06-07 00:00:00 2023-06-07 00:00:00 Smokeless tobacco non-user [facility] Alcoholic beverage intake 2023-06-07 00:00:00 2023-06-07 00:00:00 Lifetime non-drinker (finding) [facility] Sex assigned at 1970 00:00:00 1970 00:00:00 [facility] Smoking Status Start Date Stop Date Source Tobacco smoking status [place] Never smoked tobacco [facility] Medications Ordered Medication Name Filled Medication Name Start Date Stop Date Current Medication? Ordering Clinician Indication Dosage Frequency Signature (SIG) Comments Components Source furosemide 20 mg oral tablet 07-03 18:27: 00 Yes 20 mg = 1 tab, PO, Daily, # 30 tab, 4 Refill(s), Pharmacy: [id number], MEDS TO BED J960, 185.42, cm, 06/28/23 19:28:00 CDT, Height, 96.6, kg, 06/28/23 19:28:00 CDT, Weight Perrioria chris Armenta atorvastati n 80 mg oral tablet 07-03 18:27: 00 Yes 80 mg = 1 tab, PO, Bedtime, # 30 tab, 4 Refill(s), Pharmacy: [facility] [id number], MEDS TO BED J960, 185.42, cm, 06/28/23 19:28:00 CDT, Height, 96.6, kg, 06/28/23 19:28:00 CDT, Weight Memoria chris Armenta NIFEdipine 90 mg oral tablet, extended release 07-03 18:26: 00 Yes 90 mg = 1 tab, PO, Daily, .., # 30 tab, 4 Refill(s), Pharmacy: [facility] [id number], MEDS TO BED J960, 185.42, cm, 06/28/23 19:28:00 CDT, Height, 96.6, kg, 06/28/23 19:28:00 CDT, Weight Memoria chris Armenta capsaicin topical 0.025% cream 07-03 18:26: 00 Yes 1 appl, TOP, TID, # 20 gm, 0 Refill(s), Pharmacy: [facility] [id number], 185.42, cm, 06/28/23 19:28:00 CDT, Height, 96.6, kg, 06/28/23 19:28:00 CDT, Weight Memoria chris Armenta clopidogrel 75 mg oral tablet 07-03 18:26: 00 Yes 75 mg = 1 tab, PO, Q24H, # 60 tab, 4 Refill(s), Pharmacy: [facility] [id number], MEDS TO BED J960, 185.42, cm, 06/28/23 19:28:00 CDT, Height, 96.6, kg, 06/28/23 19:28:00 CDT, Weight Candida Armenta aspirin 81 mg tablet, chewable 07-03 18:21: 00 Yes 81 mg = 1 tab, PO, Daily, # 21 tab, 4 Refill(s), Pharmacy: [facility] [id number], MEDS TO BED J960, 185.42, cm, 06/28/23 19:28:00 CDT, Height, 96.6, kg, 06/28/23 19:28:00 CDT, Weight Candida perez Geov[facility] NovoLIN R 06-28 02:28: 00 Yes 3 unit, SUB-Q, QID-Before Meals, 0 Refill(s) Perrirosetta chris Armenta pantoprazol e 06-28 02:28: 00 Yes 40 mg, PO, Daily, # 30 tab, 0 Refill(s) Memrosetta chris Armenta pantoprazol e 40 mg oral granule 06-28 02:28: 00 Yes = 1 Pack, PO, Daily, # 30 ea, 0 Refill(s) Perrirosetta chris Armenta hydrALAZINE 50 mg oral tablet 06-28 02:27: 00 Yes 50 mg = 1 tab, PO, TID, # 90 tab, 3 Refill(s) Perrirosetta chris Armenta gabapentin 100 mg oral capsule 06-28 02:27: 00 Yes 100 mg = 1 cap, PO, TID, # 90 cap, 1 Refill(s) Memrosetta perez Geovany ciprofloxac in (Cipro) 500 MG tablet 06-06 11:08: 04 Yes 500mg Q.5D Take 500 mg by mouth in the morning and 500 mg in the evening. [facility] ferrous sulfate 325 (65 Fe) MG tablet 06-06 11:08: 04 Yes 325mg QD Take 325 mg by mouth 1 (one) time each day with breakfast. [facility] acetaminoph en (Tylenol) 325 MG tablet 06-06 11:08: 04 Yes 325mg Q6H Take 325 mg by mouth every 6 (six) hours if needed for mild pain. [facility] Humulin 70/30 14 15:25: 00 Yes 15 unit, SUB-Q, Before Dinner, # 10 mL, 2 Refill(s), Pharmacy: [facility][id number], 177.8, cm, 06/03/23 0:58:00 CDT, Height, 101.2, kg, 06/03/23 0:58:00 CDT, Weight Memoria chris Armenta Insulin Syringes (U 100) 05-21 15:20: 00 Yes 1 syr, SUB-Q, ONCALL, # 90 pen needle, 0 Refill(s), Pharmacy: [facility] [id number], 177.8, cm, 05/12/23 17:46:00 CDT, Height, 87.59, kg, 05/12/23 17:46:00 CDT, Weight Memoria chris Armenta tamsulosin 0.4 mg oral capsule 05-21 13:47: 00 Yes 0.8 mg = 2 cap, PO, After Breakfast, # 60 cap, 2 Refill(s), Pharmacy: [facility] [id number], 177.8, cm, 05/12/23 17:46:00 CDT, Height, 87.59, kg, 05/12/23 17:46:00 CDT, Weight Memoria chris Armenta ferrous sulfate 325 mg oral enteric coated tablet 05-21 13:46: 00 Yes 325 mg = 1 tab, PO, Daily, dosed as ferrous sulfate salt, # 30 tab, 2 Refill(s), Pharmacy: [facility] [id number], 177.8, cm, 05/12/23 17:46:00 CDT, Height, 87.59, kg, 05/12/23 17:46:00 CDT, Weight Memoria chris Armenta carvedilol 25 mg oral tablet 05-21 13:46: 00 Yes 25 mg = 1 tab, PO, Q12H, # 60 tab, 2 Refill(s), Pharmacy: [facility] [id number], 177.8, cm, 05/12/23 17:46:00 CDT, Height, 87.59, kg, 05/12/23 17:46:00 CDT, Weight Candida perez Geovany atorvastati n (Lipitor) 80 MG tablet 05-21 00:00: 00 Yes 80mg Take 80 mg by mouth every night. [facility] carvedilol (Coreg) 25 MG tablet 05-21 00:00: 00 Yes 25mg Q.5D Take 25 mg by mouth every 12 (twelve) hours. [facility] tamsulosin (Flomax) 0.4 MG 24 hr capsule 05-21 00:00: 00 Yes .8mg QD Take 0.8 mg by mouth 1 (one) time each day. [facility] NIFEdipine XL (Procardia XL) 90 MG 24 hr tablet 05-21 00:00: 00 Yes 90mg QD Take 90 mg by mouth 1 (one) time each day. [facility] HumuLIN 70/30 (70-30) 100 UNIT/ML injection 05-21 00:00: 00 Yes 25U Inject 25 Units under the skin every morning. 15 units daily before dinner [facility] Guy Low Dose 81 MG chewable tablet 05-21 00:00: 00 Yes 81mg QD Chew 81 mg 1 (one) time each day. [facility] Vital Signs Vital Name Observation Time Observation Value Comments S johanna Systolic blood pressure 2023-06-07 16:00:00 154 mm[Hg] [facility] Diastolic blood pressure 2023-06-07 16:00:00 78 mm[Hg] [facility] Heart rate 2023-06-07 16:00:00 66 /min [facility] Body temperature 2023-06-07 16:00:00 36.61 Monique [facility] Body height 2023-06-07 16:00:00 177.8 cm [facility] ealt Body weight 2023-06-07 16:00:00 95.255 kg [facility] BMI 2023-06-07 16:00:00 30.13 kg/m2 [facility] Systolic (mm Hg) 2023-07-04 22:00:00 [facility] Diastolic (mm Hg) 2023-07-04 22:00:00 [facility] Temperature Oral (F) 2023-07-04 21:05:59 98.3 F [facility] Temperature Oral (F) 2023-07-04 08:42:54 98.3 F [facility] [place] Heart Rate 2023-06-30 10:00:00 [facility] [place] Height 2023-06-29 00:14:00 6 [ft_i] [facility] [place] BMI Calculated 2023-06-29 00:14:00 [facility] [place] Weight 2023-06-29 00:14:00 [facility] [place] Procedures Procedure Date / Time Performed Performing Clinicia n Source Eye examination under anesthesia [facility] Stent placement [facility] Encounters Start Date/Time End Date/Time Encounter Type Admission Type Attending [facility] Facility Care Department Encounter ID Source 2023-08-15 14:37:24 2023-08-15 14:37:24 Outpatient SFA SFA [id number] Tristin Silva Missael 2023-07-18 16:00:00 2023-07-18 16:00:00 Outpatient TERESA POWERS [facility] [id number] [facility] 2023-07-18 14:10:45 2023-07-18 14:10:45 Outpatient SFA SFA [id number] Tristin Silva Missael 2023-06-28 19:15:00 2023-07-04 18:50:00 Outpatient Irwin Banks [facility] [id number] 2023-06-28 18:51:00 2023-07-04 18:50:00 Inpatient E IRWIN BANKS [facility] [id number] [facility] 2023-06-28 19:15:00 2023-06-28 23:59:00 Outpatient CECIL LOVE [facility] [id number] [facility] 2023-06-15 09:45:00 2023-06-15 09:45:00 Outpatient JOSE ALEJANDRO APARICIO [facility] [id number] [facility] 2023-06-07 11:00:00 2023-06-07 11:51:54 Office Visit Teresa Powers [facility] [id number] [id number] [facility] 2023-06-07 11:00:00 2023-06-07 11:00:00 Outpatient TERESA POWERS [facility] [id number] [facility] 2023-06-01 14:11:00 2023-06-05 13:00:00 Inpatient E NIKOS GRAMAJOZAH [facility] [id number] [facility] 2023-05-12 17:44:00 2023-05-22 14:36:00 Inpatient MAURA RIGGS [facility] [id number] [facility] 2023-05-07 18:12:00 2023-05-12 17:33:00 Inpatient Josr MOISÉS CRUZ [facility] [id number] [facility] 2023-05-07 18:12:00 2023-05-07 23:59:00 Outpatient CECIL LOVE [facility] DANIEL [id number] [facility] Results Test Description Test Time Test Comments Results Result Co mments Source [id number] 05:30:00* Test Item Value Reference Range Interpretation Comme nts Glucose Lvl (test code = Glucose Lvl) 195 70-99 [facility]WH[facility]HW8091-86-11 05:30:00* Test Item Value Reference Range Interpretation Comme nts WBC X 10x3 (test code = WBC X 10x3) 6.35 3.92-10.07 [facility] [id number] 22:00:00* Test Item Value Reference Range Interpretation Comme nts Tube Num CSF (test code = Tube Num CSF) 1 1 [facility] HospitalScsmqzoYKPSMLWEU6973-22-64 22:00:00* Test Item Value Reference Range Interpretation Comme nts Osmolality (test code = Osmolality) 317 280-300 [facility] HospitalVeituvhVYFCYMMNYB5594-82-06 22:00:00* Test Item Value Reference Range Interpretation Comme nts VDRL Scr CSF (test code = VD RL Scr CSF) NonReact [facility]annGram [id number] 22:00:00* Test Item Value Reference Range Interpretation Comme nts Gram Stain (test code = Gram Stain) No WBC's Seen No Organisms Seen [facility] St[facility] Irpnpj5413-52-96 22:00:00* Test Item Value Reference Range Interpretation Comme nts Gram Stain Report (test code = Gram Stain Report) Gram Stain Performed By: [facility] CSF w/Gram [id number] 22:00:00* Test Item Value Reference Range Interpretation Comme nts Culture: CSF w/Gram Stain (test code = Culture: CSF w/Gram Stain) 48 Hour Report - No Growth, Holding [facility]aCexwhliTAKDURSUXQ4601-17-48 19:46:00* Test Item Value Reference Range Interpretation Comme nts SJ Pattern (test code = SJ Pattern) Mitotic [facility]aUvjgwoqIXRQFSINB7965-88-11 19:46:00* Test Item Value Reference Range Interpretation Comme nts Trig (test code = Trig) 182 [facility]aVcohtbmSIJSBNNCDU8017-49-36 19:46:00* Test Item Value Reference Range Interpretation Comme nts Sed Rate (test code = Sed Rate) 96 <=15 [place] [id number] 19:32:45* Test Item Value Reference Range Interpretation Comme nts RADRPT (test code = RADRPT) EXAM: XR CHEST 1 VIEWDATE: 07/01/2023 11:12Age: 52 years y/o Male INDICATION: - Chest PainCOMPARISON: 06/28/2023.TECHNIQUE: AP chest.IMPRESSION: Lines/tubes: Unchanged loop recorder.Heart and mediastinum: The cardiomediastinal silhouette is enlarged, stable since prior radiograph. Aortic vascular wall calcifications are noted. Lungs: There are diffuse bilateral reticular/interstitial opacities which may be secondary to pulmonary edema with or without superimposed infection. The left costophrenic sulcus is outside the ecnwn-pj-ksjo. Small left-sided pleural effusion or pneumothorax cannot be ruled out. No right-sided pleural effusion or pneumothorax.Musculoskeletal : The regional skeleton is unchanged. [facility] CampusGvdqhvlYWYWOWCXBI4313-13-41 19:46:00* Test Item Value Reference Range Interpretation Comme nts ASA Effect Plt (test code = ASA Effect Plt) [address] [place] [id number] 14:23:05* Test Item Value Reference Range Interpretation Comme nts RADRPT (test code = RADRPT) EXAM: MRI BRAIN WITHOUT CONTRASTDATE: 06/30/2023INDICATION: - new onset dysarthria.COMPARISON: CT head without contrast and CTA head/neck with contrast dated 06/28/2023 and MRI brain without contrast dated 05/08/2023.TECHNIQUE: Multiplanar, multisequence MRI of the brain without contrast. IV contrast: None.FINDINGS:Small, multifocal areas of restricted diffusion, some of them with equivocal signal in the ADC map are demonstrated, with associated FLAIR signal abnormality involving the bilateral periventricular white matter and right aspect of the fernanda. No definite superimposed susceptibility artifact is present to suggest hemorrhagic transformation.Interval evolution of the areas of infarct in the right thalamus and dorsey radiata visualized on 05/06/2023.A small, ovoid area of susceptibility artifact is noted within the left thalamus with more linear susceptibility noted within the inferior aspect of the posterior limb of the internal capsule. Small areas of encephalomalacia noted within the bilateral basal ganglia and thalamus.Generalized parenchymal volume loss with compensatory enlargement of the ventricles and extra axial spaces. Scattered T2/FLAIR hyperintensities within the supratentorial white matter are nonspecific, favored to represent microvascular ischemic changes. The intracranial arterial and venous structures demonstrate normal flow voids.A left maxillary mucosal retention cyst is noted. Small right mastoid effusion.IMPRESSION: 1. Small, multifocal areas of restricted diffusion involving the bilateral periventricular white matter and right midbrain are most consistent with recent ischemic changes. Interval evolution of the infarcts in the right thalamus and dorsey radiata since 05/08/2023. No evidence of hemorrhagic transformation. Given the distribution of findings, this may be indicative of an embolic phenomenon.2. Small areas of encephalomalacia involving the bilateral basal ganglia and left thalamus related to prior infarcts.3. Global parenchymal volume loss and microvascular ischemic changes.Critical finding of ischemia was communicated to and acknowledged by Dr. Weston via telephone at 06/30/2023 9:36 by Melo Cruz MD. [id number] 13:09:05* Test Item Value Reference Range Interpretation Comme [facility] RADRPT (test code = RADRPT) EXAM: US RIGHT LOWER EXTREMITY VENOUS DOPPLERDATE: 06/29/2023 17:06 INDICATION: 52-year-old man. Evaluate for DVT. COMPARISON: None. TECHNIQUE: Multiplanar grayscale, color Doppler, and spectral Doppler ultrasound of the right lower extremity veins. Images of the contralateral common femoral vein obtained for comparison.FINDINGS: Right Thigh Veins:Common Femoral: Patent without thrombus. Femoral: Patent without thrombus. Popliteal: Patent without thrombus. Proximal Great Saphenous: Patent without thrombus. Proximal Deep Femoral Vein: Patent without thrombus. Right Calf Veins:Peroneal: Patent without thrombus. Posterior Tibial: Patent without thrombus. Left common femoral vein is patent without thrombus. Waveform similar as compared to right.Other: Interstitial fluid in keeping with moderate soft tissue edema.IMPRESSION:1. No deep venous thrombosis (DVT) in the femoropopliteal veins of right lower extremity. 2. No DVT in the visible portions of the calf veins.3. Moderate soft tissue edema at right lower extremity. [facility] LancasterECYCLINE:SUSC:PT:ISOLATE:ORDQN:[id number] 23:35:00* Test Item Value Reference Range Interpretation Comme nts Culture: Urine (test code = Culture: Urine) 10,000 - 50,000 CFU/mL Escherichia coli >100,000 CFU/mL Skin [place] [facility]aURINE AND [id number] 20:00:00* Test Item Value Reference Range Interpretation Comme nts UA Color (test code = UA Color) Yellow *NA*(06/29/23 3:00 PM) [facility]aYjsaqhaPBCQZQ0428-44-56 03:37:28* Test Item Value Reference Range Interpretation Comme nts RADRPT (test code = RADRPT) EXAM: XR CHEST 1 VIEWDATE: 06/28/2023 21:25INDICATION: - code stroke\E\COMPARISON: NoneTECHNIQUE: AP chestFINDINGS: Lines and tubes: None.Lungs and Pleura: Diffuse pulmonary interstitial thickening is noted, bilaterally. This somewhat obscures the central vasculature. No carlota consolidation or other pulmonary or pleural based abnormality is identified. Heart and mediastinum: Unremarkable for acute abnormality. No electronic device is seen at the level of the cardiac ventricles, consistent with an external loop recorder.Chest wall: Unremarkable.Bones: No acute bony abnormality is identified.IMPRESSION: Findings consistent with pulmonary edema. [facility]aAwpolupXWWWEZNSI2960-41-34 02:35:00* Test Item Value Reference Range Interpretation Comme nts Total Protein (test code = T otal Protein) 6.2 6.4-8.4 [facility] HospitalKpkrbtmASLODF7378-16-96 00:59:06* Test Item Value Reference Range Interpretation Comme nts RADRPT (test code = RADRPT) EXAM: CTA BRAINEXAM: CTA NECKEXAM: CT PERFUSION BRAINDATE: 06/28/2023INDICATION: - code stroke\E\.COMPARISON: None.UT SECTION: NeuroTECHNIQUE: - Dynamic CT perfusion images on a limited area of the brain parenchyma are performed during bolus injection of iodinated contrast material. Color maps of relative cerebral blood flow, relative cerebral blood volume, time to peak, and mean transit time are created on an independent workstation and are submitted along with the source image data. [facility] was used in the care of this patient.-Rapid acquisition spiral CT images of the brain and neck were obtained between the aortic arch and the cranial vertex during intravenous infusion of iodinated contrast for the purposes of CT angiography. 3-D CT angiographic images are created using MIP technique at the acquisition workstation. The source images are also presented for interpretation. IV contrast: Refer to MAR/staff cytotechnologist documentationDLP: Refer to CT protocol formFINDINGS:NECK CTA:Aortic arch: The great vessels originate from the aortic arch in the standard configuration. No origin stenosis is identified.Common carotid arteries: Normal.Internal carotid arteries:* Right: There is mild atherosclerosis with areas of calcification at the carotid bifurcation, and stenosis of less than 50% by NASCET criteria.* Left: There are areas of intimal thickening and calcification in the carotid bulb and bifurcation, but there is no stenosis by NASCET criteria.Vertebral arteries: Normal.Other: Enlarged paratracheal, prevascular, and supraclavicular lymph nodes. Small bilateral pleural effusions.BRAIN CTA:Arteries: The anterior and posterior circulations have a normal appearance and a standard branching pattern. No branch occlusion, vascular injury, arteritis, vascular malformation or aneurysm is identified.Veins: Cannot be evaluated due to the early arterial phase of contrast.Brain: There has been no significant change in the brain since the most recent exam.CT PERFUSION:Perfusion maps:The CTP acquisition is of adequate quality. There is no regional abnormality in cerebral blood flow, cerebral blood volume, or transit time in the imaged areas of the brain to suggest active oligemia or infarction.Quantitative software analysis:NQU7uub = 0 ccThere are no artifactual areas of predicted core or penumbra.IMPRESSION:1. Mild atherosclerotic changes in the carotid bulbs without significant arterial flow-limiting stenosis. 2. Otherwise, unremarkable CTA of the neck and head. Negative for proximal large vessel occlusion, high-grade stenosis or acute vascular injury.3. Unremarkable CT brain perfusion.4. Enlarged paratracheal, prevascular, and supraclavicular lymph nodes of unclear etiology. Recommend correlation with dedicated CT chest with contrast.(All qualitative and quantitative assessments of carotid bifurcation and proximal internal carotid artery stenosis are made referencing the distal internal carotid artery {NASCET criteria}.) [facility] [id number] 00:55:46* Test Item Value Reference Range Interpretation Comme nts RADRPT (test code = RADRPT) EXAM: CT BRAIN WITHOUT CONTRASTDATE: 06/28/2023INDICATION: - code stroke\E\.COMPARISON: Same day CT brain and neck.UT SECTION: NeuroTECHNIQUE: Axial CT images of the brain were obtained. Sagittal and coronal reformats.IV contrast: NoneDLP: Refer to CT protocol formFINDINGS: Age indeterminate lacunar infarcts in the posterior limb of right internal capsule, left thalamus and right basis pontis.Background mild diffuse cerebral volume loss.There is no edema, hemorrhage, mass lesion or other acute intracranial abnormality. The ventricular system is unremarkable. Negative for hydrocephalus.The skull base, calvarium, and included facial bones are unremarkable. Orbital contents are negative for acute pathology. Mucous retention cyst in left maxillary sinus. Otherwise, the paranasal sinuses are clear.IMPRESSION: 1. Age indeterminate lacunar infarcts in the posterior limb of right internal capsule, left thalamus and right basis pontis.2. Otherwise no CT sign of large acute cortical infarct or parenchymal hemorrhage.* Recommendations: If continued clinical concern a stroke protocol MRI is recommended. [facility] [employer] [id number] 00:50:00* Test Item Value Reference Range Interpretation Comme nts ABO/Rh (test code = ABO/Rh) O POS [id number] 00:44:00* Test Item Value Reference Range Interpretation Comme nts Total CK (test code = Total CK) 78 12-191 [facility]aV[id number] 00:44:00* Test Item Value Reference Range Interpretation Comme nts PT (test code = PT) 14.3 s 12.0-14.7 [facility] History and Physical Notes Date/Time Note Provider Source 2023-07-04 23:50:00 [id number]+VpVO7YFzpDdVwva S6YBuwefR0tV2rYE+W fHCUjr3Npj7j8oS8c76NnrxP++9590-04-20B9 3:50:00 * Laureano Dorman MD: MODIFYPamela Anjail Zarinah MD: PERFORM, Irwin Santiago MD: MODIFYEvent Display: History and PhysicalAuthored Date: [id number] and Physical Primary Team Name: Stroke BTeam Contact Info: [id number] Code Status: None Specified=FULL CODE Chief Complaint: 53YO M BIB LF #3 s/p suspected stroke for new onset slurred speech/headache; +blood thinners;LKN ~1400; PMH CVAx3 w/left sided deficits at baseline, HLD, HTN, DM, JOSSELYN; AAOx0, GCS 12 History of Present Illness: [id number], MALE (Washburn Irineo, ALT ) with PMHx HTN, T2DM, HLD, 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 LSN was at 13: 100. History obtained via sister who says that patient was last seen normal at 1 PM and went to bed with a headache behind the right eye at approximately 2 PM. He woke up at 3 PM with new onset slurred speech and increasing severity of the headache. On arrival to ED patient was HDS. NIH was 10 notable for left-sided plegia and severe dysarthria. CTH showed age-indeterminate lacunar infarcts in posterior limb of right internal capsule, left thalamus and right basis pontis. CTA was without LVO and perfusion was without mismatch. TNK was deferred as patient was out of window. Per collateral history, at baseline patient is wheelchair dependent but does minimally move his left arm and leg, very little antigravity movement on the left side. He is normally able to speak clearly and swallow food independently. Of note, patient had recent admission in April 2023 for new onset of left-sided weakness. Received TNK and was found to have acute infarct in posterior right internal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
[2023-08-26 00:47] LABS: Absolute Eosinophils 0.3 K/uL (0-0.5); Absolute Lymphocytes (CBC) 2.1 K/uL (0.7-4.9); Absolute Monocytes 0.7 K/uL (0.1-1.3); Absolute Neutrophil 5.4 K/uL (1.8-8.0); Basophils % 0.6 % (0-1.3); Eosinophils % 3.1 % (0-4.4); Hematocrit 32.1 % (39.6-49.0); Lymphocytes % 25.1 % (15.3-44.8); MCH 30.7 pg (27.0-35.0); MCHC 34.2 g/dL (32.0-36.0); MCV 89.7 fL (80-100); MPV 8.3 fL (7.6-11.3); Monocytes % 7.8 % (3.3-12.3); Neutrophils % 63.4 % (41.7-73.7); Nucleated Red Blood Cells % 0.2 % (0-0); Platelets 248 thou/uL (152-406); RBC Red Blood Cell Count 3.58 M/uL (4.33-5.43); Red Cell Distribution Width 14.5 % (12.1-15.2)
[2023-08-26 00:50] LABS: Anion Gap 7.9 mEq/L (5.0-15.0); Potassium 4.9 mEq/L (3.5-5.1); Troponin High Sensitivity 35.8 pg/mL (<58.9)
[2023-08-26] MEDS ORDERED: ASPIRIN 81 MG CHEWABLE TABLET ONE (03:06)
[2023-08-26] MEDS ORDERED: METOPROLOL TAR 50 MG TAB ONE (03:06)
--- NOTE | 2023-08-26 04:25 | EDPHYS ---
Physician Documentation [facility] Name: Abel Cabello Age: 52 yrs Sex: Male : 1970 Arrival Date: 08/25/2023 Time: 23:24 Bed 14 Private MD: ED Physician Keyon Cowan HPI: 08/24 23:45 This 52 yrs old Male presents to ER via EMS with complaints of Chest Pain. cp 23:45 The patient or guardian reports chest pain that is located primarily in the anterior cp chest wall. 23:45 Onset: 2 day(s) ago. The pain does not radiate. Associated signs and symptoms: cp Pertinent negatives: abdominal pain, diaphoresis, palpitations, shortness of breath, vomiting. The chest pain is described as waxing and waning. Duration: The patient or guardian reports multiple episodes. Severity of pain: in the emergency department the pain has resolved. Historical: - Allergies: 23:38 No Known Allergies; jb4 - PMHx: 23:38 JOSSELYN; diabetes mellitus; CVA May 06; Cystitis with hematuria; alcohol abuse; Left jb4 sided weakness from CVA; Hypertensive disorder; Hypoxic Respiratory Failure; - Immunization history:: Adult Immunizations up to date. - Infectious Disease History:: Denies. - Social history:: Smoking status: Patient denies any tobacco usage or history of. ROS: 23:50 Cardiovascular: Positive for chest pain, cp 23:50 Eyes: Negative for injury, pain, redness, and discharge, cp 23:50 Constitutional: Negative for body aches, chills, fever, poor PO intake, 23:50 ENT: Negative for drainage from ear(s), ear pain, sore throat, difficulty swallowing, difficulty handling secretions, 23:50 Respiratory: Negative for cough, shortness of breath, wheezing, 23:50 Abdomen/GI: Negative for abdominal pain, vomiting, diarrhea, constipation, 23:50 Neuro: Negative for altered mental status, dizziness, headache, 23:50 All other systems are negative, Exam: 23:55 Constitutional: The patient appears in no acute distress, alert, awake, cp non-diaphoretic, non-toxic, well developed, well nourished, 23:55 Head/Face: Normocephalic, atraumatic. cp 23:55 Eyes: Periorbital structures: appear normal, Conjunctiva: normal, no exudate, no injection, Sclera: no appreciated abnormality, Lids and lashes: appear normal, bilaterally, 23:55 ENT: External ear(s): are unremarkable, Nose: is normal, Mouth: Lips: moist, Oral mucosa: pink and intact, moist, Posterior pharynx: Airway: no evidence of obstruction, patent, 23:55 Neck: ROM/movement: is normal, is supple, without pain, no range of motions limitations, 23:55 Chest/axilla: Inspection: normal, 23:55 Cardiovascular: Rate: normal, Rhythm: regular, Edema: is not appreciated, JVD: is not appreciated, 23:55 Respiratory: the patient does not display signs of respiratory distress, Respirations: normal, no use of accessory muscles, no retractions, labored breathing, is not present, Breath sounds: are clear throughout, no decreased breath sounds, no stridor, no wheezing, 23:55 Abdomen/GI: Inspection: abdomen appears normal, Palpation: abdomen is soft and non-tender, in all quadrants, 23:55 Neuro: Orientation: to person, place \T\ time. Mentation: is normal, 23:58 ECG was reviewed by the Attending Physician. Vital Signs: 23:36 BP 169 / 91; Pulse 96; Resp 18; Temp 98.3(O); Pulse Ox 97% on R/A; Weight 68.95 kg (R); 4 Height 5 ft. 10 in. ; Pain 3/10; 08/25 01:30 BP 165 / 93; Pulse 84; Resp 16; Pulse Ox 96% on R/A; [facility] 02:30 BP 177 / 97; Pulse 86; Resp 15; Pulse Ox 97% on R/A; 4 03:30 BP 185 / 99; Pulse 88; Resp 16; Pulse Ox 99% on R/A; 4 05:00 BP 162 / 101; Pulse 81; Resp 16; Pulse Ox 96% on R/A; [facility] 08/24 23:36 Body Mass Index 21.81 (68.95 kg, 177.8 cm) [facility] 08/24 23:36 Pain Scale: Adult [facility] MDM: 08/24 23:37 Patient medically screened. cp 08/25 01:00 Differential diagnosis: abnormal EKG, acute myocardial infarction, pericarditis, cp pleurisy, pneumonia, pneumothorax, pulmonary embolus, stable angina, thoracic aortic disection, unstable angina. 04:19 The patient was given aspirin in the Emergency Department. cp 04:20 HEART Score: History: Moderately Suspicious (1), ECG: Normal (0), Age: > 45 and < 65 cp years (1), Risk Factors: > or = 3 Risk factors for atherosclerotic disease (2), [Hypertension] [DM] Troponin: < or = 1 x Normal Limit (0). 04:22 Data reviewed: vital signs, nurses notes, lab test result(s), EKG, radiologic studies, cp CT scan, and as a result, I will admit patient. 04:30 Management of patient was discussed with the following: Hospitalist: DR Viera will cp admit after discussion. 04:30 Independent interpretation of the following test(s) in the Emergency Department EKG: cp See my EKG interpretation above. Care significantly affected by the following chronic conditions: Diabetes, Hypertension. 08/24 23:40 Order name: Basic Metabolic Panel; Complete Time: 01:45 [facility] 08/25 03:09 Interpretation: Normal except: CL 109; GLUC 234; BUN 45; CRE 2.34; GFR 33. cp 08/24 23:40 Order name: CBC with Diff; Complete Time: 01:45 [facility] 08/24 23:40 Order name: Troponin HS; Complete Time: 01:45 [facility] 08/25 05:13 Order name: CBC with Automated Diff EDMS 08/25 05:13 Order name: CBC with Automated Diff EDMS 08/25 05:13 Order name: Comprehensive Metabolic Panel EDNM 08/25 05:13 Order name: Comprehensive Metabolic Panel EDMS 08/25 05:13 Order name: Troponin High Sensitivity EDMS 08/25 05:13 Order name: Troponin High Sensitivity EDMS 08/25 05:13 Order name: Troponin High Sensitivity EDMS 08/25 05:14 Order name: Troponin High Sensitivity EDMS 08/25 06:36 Order name: Glucose, Ancillary Testing EDMS 08/25 12:07 Order name: Glucose, Ancillary Testing EDNM 08/24 23:40 Order name: XRAY Chest (1 view) [facility] 08/25 03:20 Order name: Thorax Wo Con EDMS 08/24 23:40 Order name: Cardiac monitoring; Complete Time: 00:13 08/24 23:40 Order name: EKG - Nurse/Tech; Complete Time: 00:13 08/24 23:40 Order name: IV Saline Lock; Complete Time: 00:13 08/24 23:40 Order name: Labs collected and sent; Complete Time: 00:13 08/24 23:40 Order name: O2 Per Protocol; Complete Time: 00:13 08/24 23:40 Order name: O2 Sat Monitoring; Complete Time: 00: EC/05 23:58 Rate is 95 beats/min. Rhythm is regular. NE interval is normal. QRS interval is normal. cp QT interval is normal. T waves are Inverted in lead aVR. Interpreted by me. Reviewed by me. Administered Medications: 08/25 03:11 Drug: Metoprolol PO 50 mg PO once Route: PO; 03:11 Drug: Aspirin PO Chewable Tablet 324 mg PO once; 81 mg tablets x 4 Route: PO; Disposition: 07:32 Co-signature as Attending Physician, Keyon Cowan MD I agree with the assessment and antionette plan of care. Disposition Summary: 08/26/23 04:24 Hospitalization Ordered Notes: Hospitalization Status: Observation cp Provider: Ashley Viera cp Condition: Stable cp Problem: new cp Symptoms: have improved cp Bed/Room Type: Standard cp Location: Telemetry/MedSurg (observation)(08/26/23 11:46) Room Assignment: [employer](08/26/23 11:46) hb Diagnosis - Chest pain, unspecified cp Forms: - Medication Reconciliation Form cp - SBAR form cp - Leadership Thank You Letter cp Signatures: Dispatcher [employer] Keyon Yen MD MD cha Page, Corey, PA PA cp Delores Mishra, DUSTY MONTANO Ana Laura Santa RN RN hb Bryson, James, RN RN jb4 Corrections: (The following items were deleted from the chart) 08/24 23:39 23:38 PMHx: CVA May 06; 23:39 23:38 PMHx: CVA May 06; jb4 23:39 23:38 PMHx: CVA May 06; jb4 23:39 23:38 PMHx: CVA May 06; jb4 23:41 23:41 BASIC METABOLIC PANEL+C.LAB.BRZ ordered. EDMS EDMS 23:41 23:41 CBC+H.LAB.BRZ ordered. EDMS EDMS 23:41 23:41 Troponin High Sensitivity+C.LAB.BRZ ordered. EDMS EDMS 23:41 23:41 Chest Single View+RAD.RAD.BRZ ordered. EDMS EDMS 07 02:27 02:27 Chest For PE Angio+CT.RAD.BRZ ordered. EDMS EDMS 05:06 04:24 Telemetry/MedSurg (observation) cp cg 05:06 04:24 cp cg 11:46 05:06 [facility] ER HOLD cg hb 11:46 05:06 ERHOLD- cg hb
--- NOTE | 2023-08-26 04:25 | ER ---
Nurse's Notes [facility] Name: Abel Cabello Age: 52 yrs Sex: Male : 1970 Arrival Date: 08/25/2023 Time: 23:24 Bed 14 Private MD: Diagnosis: Chest pain, unspecified Presentation: 08/24 23:36 Chief complaint: EMS states: Pt called reporting chest pain that started 2 days ago. jb4 Tonight the pain got worse and he started feeling short of breath. Lungs were CTA and VSS. Coronavirus screen: At this time, the client does not indicate any symptoms associated with coronavirus-19. Ebola Screen: No symptoms or risks identified at this time. Initial Sepsis Screen: Does the patient meet any 2 criteria? HR > 90 bpm. Yes Does the patient have a suspected source of infection? No. Patient's initial sepsis screen is negative. Risk Assessment: Do you want to hurt yourself or someone else? Patient reports no desire to harm self or others. Onset of symptoms was August 25, 2023. Transition of care: patient was not received from another setting of care. 23:36 Method Of Arrival: EMS: [facility] jb4 23:36 Acuity: PHILIP 2 jb4 Historical: - Allergies: 23:38 No Known Allergies; jb4 - PMHx: 23:38 JOSSELYN; diabetes mellitus; CVA May 06; Cystitis with hematuria; alcohol abuse; Left jb4 sided weakness from CVA; Hypertensive disorder; Hypoxic Respiratory Failure; - Immunization history:: Adult Immunizations up to date. - Infectious Disease History:: Denies. - Social history:: Smoking status: Patient denies any tobacco usage or history of. Screenin/06 00:13 [facility] ED Fall Risk Assessment (Adult) History of falling in the last 3 months, jb4 including since admission No falls in past 3 months (0 pts) Confusion or Disorientation No (0 pts) Intoxicated or Sedated No (0 pts) Impaired Gait Yes (1 pt) Mobility Assist Device Used No (0 pt) Altered Elimination Yes (1 pt) Score/Fall Risk Level 3 or more points = High Risk Oriented to surroundings, Maintained a safe environment. Abuse screen: Denies threats or abuse. Nutritional screening: No deficits noted. Tuberculosis screening: No symptoms or risk factors identified. Assessment: 08/24 23:39 General: Appears in no apparent distress. comfortable, Behavior is calm, cooperative, jb4 appropriate for age. Pain: Complains of pain in chest Pain does not radiate. Pain currently is 3 out of 10 on a pain scale. Quality of pain is described as aching, Pain began 2-3 days ago. Neuro: Level of Consciousness is awake, alert, obeys commands, Oriented to person, place, time, situation. Cardiovascular: Patient's skin is warm and dry. Respiratory: Airway is patent Respiratory effort is even, unlabored, Respiratory pattern is regular, symmetrical. GI: No signs and/or symptoms were reported involving the gastrointestinal system. : No signs and/or symptoms were reported regarding the genitourinary system. EENT: No signs and/or symptoms were reported regarding the EENT system. Derm: Skin is intact, Skin is pink, warm \T\ dry. Musculoskeletal: Circulation, motion, and sensation intact. Paralyzed on left side due to prior stroke. 08/25 01:00 Reassessment: Patient appears in no apparent distress at this time. Patient and/or jb4 family updated on plan of care and expected duration. Pain level reassessed. Patient is alert, oriented x 3, equal unlabored respirations, skin warm/dry/pink. 02:00 Reassessment: Patient appears in no apparent distress at this time. Patient and/or jb4 family updated on plan of care and expected duration. Pain level reassessed. Patient is alert, oriented x 3, equal unlabored respirations, skin warm/dry/pink. 03:00 Reassessment: Patient appears in no apparent distress at this time. Patient and/or jb4 family updated on plan of care and expected duration. Pain level reassessed. Patient is alert, oriented x 3, equal unlabored respirations, skin warm/dry/pink. 04:00 Reassessment: Patient appears in no apparent distress at this time. Patient and/or jb4 family updated on plan of care and expected duration. Pain level reassessed. Patient is alert, oriented x 3, equal unlabored respirations, skin warm/dry/pink. 05:00 Reassessment: Patient appears in no apparent distress at this time. Patient and/or jb4 family updated on plan of care and expected duration. Pain level reassessed. Patient is alert, oriented x 3, equal unlabored respirations, skin warm/dry/pink. Vital Signs: 08/24 23:36 BP 169 / 91; Pulse 96; Resp 18; Temp 98.3(O); Pulse Ox 97% on R/A; Weight 68.95 kg (R); jb4 Height 5 ft. 10 in. ; Pain 04/29; 08/25 01:30 BP 165 / 93; Pulse 84; Resp 16; Pulse Ox 96% on R/A; jb4 02:30 BP 177 / 97; Pulse 86; Resp 15; Pulse Ox 97% on R/A; jb4 03:30 BP 185 / 99; Pulse 88; Resp 16; Pulse Ox 99% on R/A; jb4 05:00 BP 162 / 101; Pulse 81; Resp 16; Pulse Ox 96% on R/A; jb4 08/24 23:36 Body Mass Index 21.81 (68.95 kg, 177.8 cm) jb4 08/24 23:36 Pain Scale: Adult [facility] ED Course: 08/24 23:34 Patient arrived in ED. kmf 23:36 Eduardo Reddy, DUSTY is Primary Nurse. jb4 23:37 Keyon Rooney PA is PHCP. cp 23:37 Keyon Cowan MD is Attending Physician. cp 23:38 Triage completed. jb4 23:38 Arm band placed on right wrist. jb4 23:54 Initial lab(s) drawn, by az, sent to lab. Inserted saline lock: 20 gauge in right jb4 forearm, using aseptic technique. Blood collected. 08/25 00:13 XRAY Chest (1 view) In Process Unspecified. EDMS 00:13 XRAY Chest (1 view) In Process Unspecified. EDMS 00:13 Patient has correct armband on for positive identification. Bed in low position. Call [facility] light in reach. Side rails up X 1. Provided Education on: plan of care. 00:13 Basic Metabolic Panel Sent. jb4 00:13 CBC with Diff Sent. jb4 00:13 Troponin HS Sent. jb4 03:20 Thorax Wo Con In Process Unspecified. EDMS 04:23 Ashley Viera MD is Hospitalizing Provider. cp Administered Medications: 03:11 Drug: Metoprolol PO 50 mg PO once Route: PO; jb4 03:11 Drug: Aspirin PO Chewable Tablet 324 mg PO once; 81 mg tablets x 4 Route: PO; jb4 Medication: 00:13 VIS not applicable for this client. jb4 Outcome: 04:24 Decision to Hospitalize by Provider. cp 13:31 Patient left the ED. nj1 Signatures: Dispatcher [employer] EDMS Keyon Rooney PA PA cp Bryson, James, RN RN jb4 Lorene Min RN RN nj1 Franci Gonzalez [facility] Corrections: (The following items were deleted from the chart) 08/24 23:39 23:38 PMHx: CVA May 06; jb4 jb4 23:39 23:38 PMHx: CVA May 06; jb4 jb4 23:39 23:38 PMHx: CVA May 06; jb4 jb4 23:39 23:38 PMHx: CVA May 06; jb4 jb4
[2023-08-26] MEDS ORDERED: ONDANSETRON 4 MG/2 ML VIAL IV PRN (05:10)
[2023-08-26] MEDS ORDERED: ALBUTEROL 2.5 MG/3 ML NEB SOL NEB PRN (05:10)
--- NOTE | 2023-08-26 05:10 | P.HP ---
Certification for Inpatient Patient admitted to: Observation With expected LOS: >2 Midnights Patient will require the following post-hospital care: None Practitioner: I am a practitioner with admitting privileges, knowledge of patient current condition, hospital course, and medical plan of care. Services: Services provided to patient in accordance with Admission requirements found in Title 42 Section 412.3 of the Code of Federal Regulations Patient History Date of Service: 08/26/23 Reason for admission: Chest pain History of Present Illness: 53-year-old with past medical history of hypertension diabetes mellitus CVA, CKD stage IV, prior history of chronic respiratory failure who presented because of intermittent left-sided chest pain. Symptoms has been ongoing since the last 2 days. Patient denies any cough or shortness of breath. Patient denies any fever. On arrival in the ED vital signs were stable, EKG showed no significant ST segment changes. Initial troponin was negative. Chest x-ray shows no acute infiltrate. Patient is being admitted for rule out acute coronary syndrome Allergies No Known Allergies Allergy (Verified 07/19/23 01:50) Home Medications: Aspirin Chewable [Aspirin Chewable*] 81 mg PO DAILY 06/18/23 Atorvastatin Calcium [Lipitor] 80 mg PO BEDTIME 06/18/23 Ferrous Sulfate 325 mg PO DAILY 06/18/23 Hum Insulin NPH/Reg Insulin Hm [Humulin 70-30 Vial] 15 unit SQ DAILY AT SUPPER 06/18/23 Hum Insulin NPH/Reg Insulin Hm [Humulin 70-30 Vial] 25 units SQ BREAKFAST 06/18/23 Tamsulosin [Flomax*] 0.8 mg PO DAILY WITH BREAKFAST 06/18/23 Carvedilol [Coreg] 25 mg PO BID #60 tab 06/21/23 Furosemide 20 mg PO DAILY 30 Days #30 tab 06/21/23 Gabapentin [Neurontin*] 100 mg PO TID #90 cap 06/21/23 Hydralazine HCl 50 mg PO TID #90 tab 06/21/23 Pantoprazole [Protonix Tab*] 40 mg PO BID #60 tab 06/21/23 Insulin -Regular Human [Novolin -R*] See Protocol SQ ACHS 07/19/23 Nifedipine Xl [Procardia XL*] 90 mg PO DAILY 07/19/23 Calcium Acetate [Phoslo] 1 cap PO TIDWM #90 cap 07/22/23 Furosemide [Lasix*] 20 mg PO BID #60 tab 07/22/23 Potassium Chloride 10 meq PO DAILY #30 tab 07/22/23 - Past Medical/Surgical History Diabetic: Yes -: HTN -: DM -: CVA (May 06, 2022) -: ETOH abuse -: Left eye injury -: JOSSELYN -: Hypoxic respiratory failure -: cystitis with indwelling white -: left toe amputation -: left eye injury Psychosocial/ Personal History: Lives in [place] with his . They were here visiting family in [place] last month when Mr. Cabello had a CVA. He went to [facility]. His states, "now we are stuck here" - Social History Smoking Status: Former smoker Smoking therapy provided: No Patient receptive to therapy: No Alcohol use: Yes CD- Drugs: No Caffeine use: No Place of Residence: Home Review of Systems Cardiovascular: Chest Pain Physical Examination - Physical Exam General: Alert, In no apparent distress, Oriented x3 HEENT: Atraumatic, Normocephalic, PERRLA Neck: 2+ carotid pulse no bruit Respiratory: Clear to auscultation bilaterally, Normal air movement Cardiovascular: Normal pulses, Regular rate/rhythm, Normal S1 S2 Gastrointestinal: Normal bowel sounds, Soft and benign, Non-distended Musculoskeletal: No clubbing, No swelling Neurological: Normal speech, Normal strength at 5/5 x4 extr - Studies Laboratory Data (last 24 hrs) 08/26/23 08/26/23 00:01 00:01 WBC 8.50 Hgb 11.0 L Hct 32.1 L Plt Count 248 Sodium 138 Potassium 4.9 BUN 45 H Creatinine 2.34 H Glucose 234 H Assessment and Plan - Plan Impression Atypical chest pain Hypertension DM History of CVA CKD stage IV Plan Admit patient to observation Serial set of cardiac enzymes Start aspirin/Plavix Insulin sliding scale with Accu-Cheks Lovenox for DVT prophylaxis Full code Creatinine elevated at 2.3, about baseline, continue to follow - Advance Directives Does patient have a Living Will: No Does patient have a Durable POA for Healthcare: No
[2023-08-26] MEDS: NITROGLYCERIN 0.4 MG/TAB SL ONE (05:32)
[2023-08-26] MEDS: ASPIRIN EC 81 MG TAB PO ONE (05:40)
[2023-08-26] MEDS: CLOPIDOGREL 75 MG TABLET PO ONE (05:42)
[2023-08-26] MEDS: INSULIN REGULAR (HUMAN) 100 UNIT/ML SQ SCH (06:00)
[2023-08-26] MEDS: NITROGLYCERIN 0.2 MG/HR (5 MG) PATCH TD ONE (06:01)
[2023-08-26] MEDS ORDERED: NITROGLYCERIN 0.4 MG/TAB SL ONE (06:23)
[2023-08-26] MEDS ORDERED: INSULIN REGULAR (HUMAN) 100 UNIT/ML ONE ×2 (06:41→12:05)
[2023-08-26] MEDS ORDERED: MORPHINE 2 MG/ML SYR ONE (07:09)
[2023-08-26] MEDS: MORPHINE 4 MG/ML SYR IV PRN (08:36)
[2023-08-26] MEDS ORDERED: ENOXAPARIN 40 MG/0.4 ML SQ ONE (09:57)
[2023-08-26] MEDS ORDERED: HYDRALAZINE HCL 20 MG/ML VIAL ONE (09:57)
[2023-08-26] MEDS: NITROGLYCERIN 0.2 MG/HR (5 MG) PATCH TD SCH (10:00)
[2023-08-26] MEDS: ENOXAPARIN 40 MG/0.4 ML SQ SCH (10:00)
[2023-08-26] MEDS: HYDRALAZINE HCL 20 MG/ML VIAL IV PRN (10:01)
--- NOTE | 2023-08-26 13:48 | P.CNS ---
Date of Consult: 08/26/23 Chief Complaint: Chest pain History of Present Illness: Patient with PMH of THN, Stroke, HLD, presented with chest pain that has been foing on since yesterday, sharp across the chest, no radiation, on left and right side and more under the arm pit, patient is disabled on the left side due to history of stroke. no other cardiac symptoms. Allergies No Known Allergies Allergy (Verified 07/19/23 01:50) Home Medications: Aspirin Chewable [Aspirin Chewable*] 81 mg PO DAILY 06/18/23 Atorvastatin Calcium [Lipitor] 80 mg PO BEDTIME 06/18/23 Ferrous Sulfate 325 mg PO DAILY 06/18/23 Hum Insulin NPH/Reg Insulin Hm [Humulin 70-30 Vial] 15 unit SQ DAILY AT SUPPER 06/18/23 Hum Insulin NPH/Reg Insulin Hm [Humulin 70-30 Vial] 25 units SQ BREAKFAST 06/18/23 Tamsulosin [Flomax*] 0.8 mg PO DAILY WITH BREAKFAST 06/18/23 Carvedilol [Coreg] 25 mg PO BID #60 tab 06/21/23 Furosemide 20 mg PO DAILY 30 Days #30 tab 06/21/23 Gabapentin [Neurontin*] 100 mg PO TID #90 cap 06/21/23 Hydralazine HCl 50 mg PO TID #90 tab 06/21/23 Pantoprazole [Protonix Tab*] 40 mg PO BID #60 tab 06/21/23 Insulin -Regular Human [Novolin -R*] See Protocol SQ ACHS 07/19/23 Nifedipine Xl [Procardia XL*] 90 mg PO DAILY 07/19/23 Calcium Acetate [Phoslo] 1 cap PO TIDWM #90 cap 07/22/23 Furosemide [Lasix*] 20 mg PO BID #60 tab 07/22/23 Potassium Chloride 10 meq PO DAILY #30 tab 07/22/23 - Past Medical/Surgical History Diabetic: Yes -: HTN -: DM -: CVA (May 06, 2022) -: ETOH abuse -: Left eye injury -: JOSSELYN -: Hypoxic respiratory failure -: cystitis with indwelling white -: left toe amputation -: left eye injury Psychosocial/ Personal History: Lives in [place] with his . They were here visiting family in [place] last month when Mr. Cabello had a CVA. He went to [facility]. His states, "now we are stuck here" - Social History Smoking Status: Unknown if ever smoked Alcohol use: Yes CD- Drugs: No Caffeine use: No Place of Residence: Home Review of Systems 10-point ROS is otherwise unremarkable Physical Examination Temp Pulse Resp BP Pulse Ox 98.1 F 84 18 152/88 H 99 08/26/23 12:00 08/26/23 12:00 08/26/23 12:00 08/26/23 12:00 08/26/23 12:00 General: Alert, In no apparent distress HEENT: Atraumatic, PERRLA, Mucous membr. moist/pink, EOMI, Sclerae nonicteric Neck: Supple, 2+ carotid pulse no bruit, No LAD, Without JVD or thyroid abnormality Respiratory: Clear to auscultation bilaterally, Normal air movement Cardiovascular: Regular rate/rhythm, Normal S1 S2 Gastrointestinal: Normal bowel sounds, No tenderness Musculoskeletal: No tenderness Integumentary: No rashes Neurological: Normal gait, Normal speech, Normal tone, Normal affect Lymphatics: No axilla or inguinal lymphadenopathy Laboratory Data (last 24 hrs) 08/26/23 08/26/23 00:01 00:01 WBC 8.50 Hgb 11.0 L Hct 32.1 L Plt Count 248 Sodium 138 Potassium 4.9 BUN 45 H Creatinine 2.34 H Glucose 234 H - Problems (1) Chest pain Current Visit: No Status: Acute Plan: Atypical as it is sharp in nature located across the chest left and right side. continue to trend cardiac enzymes, patient typically will need a stress test as he got multiple CAD risk factors, but if ready to discharge and enzymes are negative then stress test can be done as outpatient. continue ASA 81 mg daily COnitnue Lipitor 80 mg daily (2) HLD (hyperlipidemia) Current Visit: No Status: Acute Plan: continue lipitor 80 mg daily (3) HTN (hypertension) Current Visit: No Status: Acute Plan: continue coreg 25 mg po BID continue procardia XL 60 mg daily continue Hydralazine 50 mg po TID
--- NOTE | 2023-08-26 16:25 | P.PN ---
Date of Service: 08/26/23 patient seen on rounds early this morning reports 2 days shortness of breath and chest pain. Seen in [facility] recently and advised to come to ER due to concern he has "fluid on lungs" patient reports compliance with all his medications, no recent changes no recent weight gain / no worsening edema initial trop negative x 2 CT chest with mild pericardial effusion, no pleural effusion / otherwise clear atypical chest pain but patient has significant history continue to trend trop discussed with cardiology possible dc tomorrow
[2023-08-26] MEDS: CALCIUM ACETATE 667 MG TAB PO SCH (16:55)
[2023-08-26] MEDS: carvediloL 25 MG TAB PO SCH (16:55)
[2023-08-26] MEDS: ATORVASTATIN 80 MG TAB PO SCH (21:25)
[2023-08-26] MEDS: HYDRALAZINE HCL 25 MG TABLET PO SCH (21:25)
[2023-08-26] MEDS: GABAPENTIN 100 MG CAP PO SCH (21:26)
[2023-08-26] MEDS: PANTOPRAZOLE 40MG TABLET PO SCH (21:26)
[2023-08-26] MEDS: FUROSEMIDE 20 MG TABLET PO SCH (21:26)
[2023-08-26] MEDS ORDERED: KETOROLAC 30 MG/ML INJ IV PRN (23:46)
[2023-08-27] MEDS: KETOROLAC 30 MG/ML INJ IV PRN (00:13)
[2023-08-27 04:29] VITALS: O2SAT 95
[2023-08-27 05:10] VITALS: TEMP 97.4
[2023-08-27 06:51] LABS: Absolute Basophils 0.1 K/uL (0-0.5); Absolute Eosinophils 0.3 K/uL (0-0.5); Absolute Lymphocytes (CBC) 1.9 K/uL (0.7-4.9); Absolute Monocytes 0.6 K/uL (0.1-1.3); Absolute Neutrophil 4.5 K/uL (1.8-8.0); Basophils % 0.8 % (0-1.3); Eosinophils % 4.3 % (0-4.4); Hematocrit 31.9 % (39.6-49.0); Hemoglobin 10.9 g/dL (13.6-17.9); Lymphocytes % 25.3 % (15.3-44.8); MCH 30.7 pg (27.0-35.0); MCHC 34.2 g/dL (32.0-36.0); MPV 8.1 fL (7.6-11.3); Monocytes % 8.5 % (3.3-12.3); Neutrophils % 61.1 % (41.7-73.7); Platelets 257 thou/uL (152-406); RBC Red Blood Cell Count 3.54 M/uL (4.33-5.43); Red Cell Distribution Width 14.7 % (12.1-15.2)
[2023-08-27 07:15] VITALS: BMI 29.3
[2023-08-27 07:15] LABS: ALT/SGPT 29 U/L (16-61); Albumin 2.8 g/dL (3.4-5.0); Albumin/Globulin Ratio 0.7 (1.1-1.8); Alkaline Phosphatase 104 U/L (45-117); Anion Gap 8.7 mEq/L (5.0-15.0); BUN Blood Urea Nitrogen 51 mg/dL (7-18); Bicarbonate 24 mEq/L (21-32); Bilirubin Total 0.2 mg/dL (0.2-1.0); Globulin 3.8 g/dL (2.3-3.5); Glomerular Filtration Rate 38 ml/min (=/>90); Glucose Level 181 mg/dL (74-106); Magnesium 2.2 mg/dL (1.6-2.4); Potassium 4.7 mEq/L (3.5-5.1); Protein, Total 6.6 g/dL (6.4-8.2); Sodium Level 140 mEq/L (136-145)
[2023-08-27 07:18] LABS: AST/SGOT < 10 U/L (15-37)
[2023-08-27] MEDS: TAMSULOSIN 0.4 MG SR CAP PO SCH ×2 (08:00→08:42)
--- NOTE | 2023-08-27 08:22 | P.DS ---
Admission Date: 08/26/23 Discharge Date: 08/27/23 Disposition: ROUTINE DISCHARGE Discharge Condition: GOOD Reason for Admission: Chest pain Consultations: Cardiology - Dr. Lewis Brief History of Present Illness: 53yo M ,PMH: hypertension diabetes mellitus CVA, CKD stage IV, prior history of chronic respiratory failure Patient presented because of intermittent left-sided chest pain. Symptoms has been ongoing since the last 2 days. Patient denies any cough or shortness of breath. Patient denies any fever. On arrival in the ED vital signs were stable, EKG showed no significant ST segment changes. Initial troponin was negative. Chest x-ray shows no acute infiltrate. Patient is being admitted for rule out acute coronary syndrome Hospital Course: Problem List: Atypical chest pain, resolved Hypertension History of CVA CKD4, ~baseline Physician discharge instructions: Patient presented with intermittent left-sided chest discomfort, shortness of breath for 2 days. Troponins were negative x4. Chest xray without any acute findings. CT chest noted moderate cardiomegaly with mild pericardial effusion otherwise negative. Cardiology was consulted. Discussed case with Dr. Lewis, due to his cardiac history and risk factors, recommended outpatient stress test to further evaluate given negative troponins / atypical chest pain. Advised to follow up with cardiology in 1-2 weeks for outpatient stress test. No findings to warrant further cardiac work up. Patient was feeling better, chest pain resolved, breathing more comfortably on room air, and was deemed stable for discharge. Medications: no change in home medications. Continue home meds as previously prescribed. Follow up: PCP 3-5 days Cardiology 1-2 weeks Please call to schedule / confirm appointments Physical Exam: GEN: Alert, oriented, NAD HEENT: Normal conjunctiva, sclera anicteric, CV: Regular rate and rhythm, no edema Pulm: Nonlabored respirations on room air, clear bilaterally ABD: soft, nontender, nondistended MSK: no joint tenderness Integumentary: No rashes Neuro: Normal speech, normal affect Vital Signs/Physical Exam: Temp Pulse Resp BP Pulse Ox 97.4 F 86 19 159/78 H 95 08/27/23 04:00 08/27/23 04:00 08/27/23 04:00 08/27/23 04:00 08/27/23 04:00 Laboratory Data at Discharge: WBC 7.40 thou/uL (4.3-10.9) 08/27/23 06:19 Hgb 10.9 g/dL (13.6-17.9) L 08/27/23 06:19 Hct 31.9 % (39.6-49.0) L 08/27/23 06:19 Plt Count 257 thou/uL (152-406) 08/27/23 06:19 Sodium 140 mEq/L (136-145) 08/27/23 06:19 Potassium 4.7 mEq/L (3.5-5.1) 08/27/23 06:19 BUN 51 mg/dL (7-18) H 08/27/23 06:19 Creatinine 2.04 mg/dL (0.70-1.30) H 08/27/23 06:19 Glucose 181 mg/dL (74-106) H 08/27/23 06:19 Magnesium 2.2 mg/dL (1.6-2.4) 08/27/23 06:19 Total Bilirubin 0.2 mg/dL (0.2-1.0) 08/27/23 06:19 AST < 10 U/L (15-37) L 08/27/23 06:19 ALT 29 U/L (16-61) 08/27/23 06:19 Alkaline Phosphatase 104 U/L (45-117) 08/27/23 06:19 Home Medications: Aspirin Chewable [Aspirin Chewable*] 81 mg PO DAILY 06/18/23 Atorvastatin Calcium [Lipitor] 80 mg PO BEDTIME 06/18/23 Ferrous Sulfate 325 mg PO DAILY 06/18/23 Hum Insulin NPH/Reg Insulin Hm [Humulin 70-30 Vial] 15 unit SQ DAILY AT SUPPER 06/18/23 Hum Insulin NPH/Reg Insulin Hm [Humulin 70-30 Vial] 25 units SQ BREAKFAST 06/18/23 Tamsulosin [Flomax*] 0.4 mg PO DAILY WITH BREAKFAST 06/18/23 Carvedilol [Coreg] 25 mg PO BID #60 tab 06/21/23 Gabapentin [Neurontin*] 100 mg PO TID #90 cap 06/21/23 Pantoprazole [Protonix Tab*] 40 mg PO BID #60 tab 06/21/23 Insulin -Regular Human [Novolin -R*] See Protocol SQ ACHS 07/19/23 Nifedipine Xl [Procardia XL*] 60 mg PO DAILY 07/19/23 Calcium Acetate [Phoslo] 1 cap PO TIDWM #90 cap 07/22/23 Furosemide [Lasix*] 20 mg PO BID #60 tab 07/22/23 Potassium Chloride 10 meq PO DAILY #30 tab 07/22/23 Hydralazine HCl 25 mg PO BID 08/26/23 Physician Discharge Instructions: Physician discharge instructions: Patient presented with intermittent left-sided chest discomfort, shortness of breath for 2 days. Troponins were negative x4. Chest xray without any acute findings. CT chest noted moderate cardiomegaly with mild pericardial effusion otherwise negative. Cardiology was consulted. Discussed case with Dr. Lewis, due to his cardiac history and risk factors, recommended outpatient stress test to further evaluate given negative troponins / atypical chest pain. Advised to follow up with cardiology in 1-2 weeks for outpatient stress test. No findings to warrant further cardiac work up. Patient was feeling better, chest pain resolved, breathing more comfortably on room air, and was deemed stable for discharge. Medications: no change in home medications. Continue home meds as previously prescribed. Follow up: PCP 3-5 days Cardiology 1-2 weeks Please call to schedule / confirm appointments Followup: NONE,NONE [Primary Care Provider] - Time spent managing pt's care (in minutes): 45
[2023-08-27] MEDS: INSULIN REGULAR (HUMAN) 100 UNIT/ML SQ SCH (08:30)
[2023-08-27] MEDS: CLOPIDOGREL 75 MG TABLET PO SCH (08:31)
[2023-08-27] MEDS: NIFEDIPINE XL 60 MG TABLET PO SCH (08:31)
[2023-08-27] MEDS: FERROUS SULFATE 325 MG TAB PO SCH (08:32)
[2023-08-27] MEDS: ASPIRIN 81 MG CHEWABLE TABLET PO SCH (08:32)
[2023-08-27 08:58] VITALS: BP 167/97
[2023-08-27] MEDS ORDERED: ASPIRIN EC 81 MG TAB PO SCH (09:00)
--- NOTE | 2023-08-27 10:17 | P.PN ---
Subjective Date of Service: 08/27/23 Chief Complaint: Chest pain Subjective: No new changes, No C/O voiced, Tolerating diet, Ambulating, Improving Review of Systems 10-point ROS is otherwise unremarkable Physical Examination - Vital Signs Temperature: 97.4 F Blood Pressure: 167/97 Pulse: 86 Respirations: 19 Pulse Ox (%): 95 - Physical Exam General: Alert, In no apparent distress HEENT: Atraumatic, PERRLA, EOMI Neck: Supple, JVD not distended Respiratory: Clear to auscultation bilaterally, Normal air movement Cardiovascular: Regular rate/rhythm, Normal S1 S2 Gastrointestinal: Normal bowel sounds, No tenderness Musculoskeletal: No tenderness Integumentary: No rashes Neurological: Normal speech, Normal tone, Normal affect Lymphatics: No axilla or inguinal lymphadenopathy - Studies Medications List Reviewed: Yes Assessment And Plan - Current Problems (Diagnosis) (1) Chest pain Current Visit: No Status: Acute Plan: Atypical as it is sharp in nature located across the chest left and right side. cardiac enzymes are negative, patient typically will need a stress test can be done as outpatient. continue ASA 81 mg daily COnitnue Lipitor 80 mg daily (2) HLD (hyperlipidemia) Current Visit: No Status: Acute Plan: continue lipitor 80 mg daily (3) HTN (hypertension) Current Visit: No Status: Acute Plan: continue coreg 25 mg po BID continue procardia XL 60 mg daily continue Hydralazine 50 mg po TID
--- NOTE | 2023-08-27 10:31 | EKG ---
Test Date: 2023-08-25 Test Time: 23:51:05 Can Sorter: MALOU MEASUREMENT RESULTS: Intervals: Rate: 95 ID: [id number] QRSD: 76 QT: 340 QTc: 427 [place]: P: 53 ID: [id number] QRS: 75 T: 47 INTERPRETIVE STATEMENTS: Normal sinus rhythm Normal ECG Compared to ECG 07/18/2023 20:23:23 Sinus bradycardia no longer present First degree AV block no longer present Electronically Signed On 08-27-23 10:30:46 CDT by Eric Lewis
--- NOTE | 2023-08-27 15:29 | RAD REPORT ---
EXAM DESCRIPTION: Thorax W/O Contrast CLINICAL HISTORY: CHEST PAIN COMPARISON: None. TECHNIQUE: CT CHEST WITHOUT IV CONTRAST on 08/26/2023 2:26 AM CDT This exam was performed according to our departmental dose-optimization program, which includes autom ated exposure control, adjustment of the mA and/or kV according to patient size and/or use of iterati ve reconstruction technique. FINDINGS: The heart is moderately enlarged. There is a small pericardial effusion. Intrathoracic lym ph nodes are not enlarged. There is no pleural effusion, pleural thickening or pneumothorax. Central airways are patent. Lungs a re clear with no consolidation, mass or interstitial lung disease. There are no acute abnormalities within the limited images of the upper abdomen. There are no acute osseous findings. No suspicious bony lesions. IMPRESSION: Cardiomegaly with a small pericardial effusion. Electronically signed by: Christo Dee MD 08/26/2023 04:29 AM CDT Due to temporary technical issues with the PACS/Fluency reporting system, reports are being signed by the in house radiologists without review as a courtesy to insure prompt reporting. The interpreting radiologist is fully responsible for the content of the report.
--- NOTE | 2023-08-27 16:52 | RAD REPORT ---
EXAM DESCRIPTION: Chest Single View CLINICAL HISTORY: CHEST PAIN COMPARISON: None TECHNIQUE: Single AP view of the chest. FINDINGS: Cardiac loop recorder device noted. Lung volumes adequate. Cardiac silhouette is normal in size. Thoracic aortic atherosclerosis. No pneumothorax. No large pleural effusion. No focal consolidation. No acute bony finding. Left neck vascular calcifications. IMPRESSION: No acute cardiopulmonary findings. Electronically signed by: Griffin Silva MD 08/26/2023 12:28 AM CDT RP Z9 Due to temporary technical issues with the PACS/Fluency reporting system, reports are being signed by the in house radiologists without review as a courtesy to insure prompt reporting. The interpreting radiologist is fully responsible for the content of the report.
== END 2023-08-27 10:26 | disposition home or self-care (01) ==
LOC: ER 23:24 → ERHOLD 08-26 05:10 → 4TH 08-26 12:36
PROVIDERS: ADMIT Internal Medicine; ATTEND Hospitalist
DX: R07.89 Other chest pain (principal); E11.22 Type 2 diabetes mellitus with diabetic chronic kidney disease; I12.9 Hypertensive chronic kidney disease with stage 1 through stage 4 chronic kidney disease, or unspecified chronic kidney disease; N18.4 Chronic kidney disease, stage 4 (severe); Z86.73 Personal history of transient ischemic attack (TIA), and cerebral infarction without residual deficits; Z79.82 Long term (current) use of aspirin; E78.5 Hyperlipidemia, unspecified
CPT/HCPCS: 36415; 71045; 71250; 80053; 82947; 83735; 84484; 85025; 93005; 99284; J0360; J1650; J2270